=== PATIENT | male | born 1970 | race Caucasian/White ===

== ENCOUNTER 2016-12-31 19:44 | Inpatient (IN) | payer OTHER ==
[~2016-12-31] VITALS: Ht 182.9 cm; Wt 100.2 kg
[2016-12-31 21:05] LABS: OBC FLU VALID
[2016-12-31 22:00] LABS: BASO # 0.2 x10^3/uL (0.0-0.2); BASO % 3 % (0-3); EOS % 2 % (0-3); HEMATOCRIT 32.2 % (39.0-53.0); HEMOGLOBIN 10.7 g/dL (13.0-17.5); LYMPH # 1.7 x10^3/uL (1.0-4.8); LYMPH % 29 % (24-48); MEAN CORPUSCULAR HEMOGLOBIN 30 pg (25-35); MEAN CORPUSCULAR HGB CONC 33 g/dL (31-37); MEAN CORPUSCULAR VOLUME 91 fL (79-100); MONO % 23 % (0-9); NEUT % 43 % (31-73); PLATELET COUNT 106 x10^3/uL (140-400); RED BLOOD COUNT 3.54 x10^6/uL (4.30-5.70); RED CELL DISTRIBUTION WIDTH 15.8 % (11.5-14.5)
[2016-12-31] MEDS ORDERED: MORPHINE SULFATE 4 MG/ML DISP.SYRIN. IV ONE (22:00)
[2016-12-31] MEDS ORDERED: IV NORMAL SALINE 1000ML BAG 1,000 ML IV ONE (22:00)
[2016-12-31 22:12] LABS: CALCIUM 7.9 mg/dL (8.5-10.1); CREATININE 0.8 mg/dL (0.7-1.3); POTASSIUM 3.9 mmol/L (3.5-5.1)
[2016-12-31 22:18] LABS: ALBUMIN 1.9 g/dL (3.4-5.0); ALBUMIN/GLOBULIN RATIO 0.3 (1.0-1.7); TOTAL BILIRUBIN 0.6 mg/dL (0.2-1.0); TOTAL PROTEIN 8.2 g/dL (6.4-8.2)
--- NOTE | 2016-12-31 22:22 | RAD ---
INDICATION: Fever, hypertension, headache, nausea for 3 days, history of HIV. COMPARISON: February 18, 2015 TECHNIQUE: Axial, noncontrast CT images obtained through the head. One or more of the following individualized dose reduction techniques were utilized for this examination: 1. Automated exposure control; 2. Adjustment of the mA and/or kV according to patient size; 3. Use of iterative reconstruction technique. FINDINGS: No acute intracranial process is identified, specifically no acute blood products, midline shift, mass effect or extra-axial fluid collections. Ventricles and sulci appear appropriate for patient's age. Basilar cisterns are maintained. Retrocerebellar CSF density is stable, possibly an arachnoid cyst. The visualized paranasal sinuses are clear. Mastoid air cells are clear. No calvarial fracture is present. Overlying scalp is intact. IMPRESSION: No acute intracranial process. Electronically signed by: Mildred Mitchell (Dec 31, 2016 22:20:33)
[2016-12-31 22:24] LABS: BILIRUBIN,URINE NEGATIVE (NEG); GLUCOSE,URINE NEGATIVE (NEG); NITRITE,URINE NEGATIVE (NEG); PH,URINE 6.5; PROTEIN,URINE NEGATIVE (NEG-TRACE)
[2016-12-31] MEDS ORDERED: LORAZEPAM 2 MG/ML VIAL. ONE (22:31)
[2016-12-31 22:32] LABS: BACTERIA,URINE 0 /HPF (0-FEW); RBC,URINE OCC /HPF (0-2); SQUAMOUS EPITHELIAL CELL,UR FEW /LPF; WBC,URINE 0 /HPF (0-4)
[2016-12-31] MEDS ORDERED: LORAZEPAM 2 MG/ML VIAL. IV STA (22:32)
[2016-12-31 23:01] LABS: % BASOS 1 % (0-3); % EOS 2 % (0-5); PLT ESTIMATE DECREASED (ADEQUATE)
[2016-12-31] MEDS ORDERED: ACETAMINOPHEN 500 MG TABLET PO ONE (23:15)
[2016-12-31] MEDS ORDERED: HYDROmorphone 2 MG/ML VIAL IV ONE (23:15)
[2016-12-31] MEDS ORDERED: VANCOMYCIN PER PHARMACY MC PRN (23:15)
[2016-12-31] MEDS ORDERED: FLUCONAZOLE 400MG/200ML PREMIX 200 ML IV ONE (23:30)
[2017-01-01] VITALS (13 sets, daily range): BP systolic 116–153; BP diastolic 66–89
[2017-01-01] MEDS ORDERED: VANCOMYCIN 2 GM in IV NORMAL SALINE 500ML BAG 500 ML IV ONE ×2
[2017-01-01] MEDS ORDERED: IV NORMAL SALINE 1000ML BAG 1,000 ML IV SCH ×2 (00:28→09:05)
--- NOTE | 2017-01-01 00:28 | PHYS DOC ---
Past Medical History Past Medical History: Other Additional Past Medical Histor: HIV, HEP B Past Surgical History: No Surgical History Alcohol Use: None Drug Use: None Adult General Chief Complaint Chief Complaint: FLU SYMPTOM HPI HPI Patient is a 46 year old male who presents with fever and headache. Patient reports for the past 3 days he has been having fever and throbbing headache. No cough, no vomiting, no diarrhea. He has taken Tylenol with insufficient relief. Of note, patient has history of HIV; he reports a CD4 count was 56 several weeks ago at an ID appointment. He is currently taking Genvoya, Bactrim, azithromycin, valacyclovir among his medications. Review of Systems Review of Systems Constitutional: Fever, chills Eyes: Denies change in visual acuity or eye pain HENT: Denies nasal congestion or sore throat Respiratory: Denies cough or shortness of breath Cardiovascular: Denies chest pain GI: Denies abdominal pain, nausea, vomiting, bloody stools or diarrhea : Denies dysuria or hematuria Musculoskeletal: Denies back pain or joint pain Integument: Denies rash or skin lesions Neurologic: Headache. Denies focal weakness or sensory changes Current Medications Current Medications Current Medications Medications (Trade) Dose Ordered Sig/Kalee Start Time Stop Time Status Last Admin Dose Admin Acetaminophen (Tylenol) 1,000 mg 1X ONCE 12/31/16 23:15 12/31/16 23:16 DC 12/31/16 23:11 1,000 MG Ceftriaxone Sodium 2 gm/ Sodium Chloride 100 ml @ 200 mls/hr 1X ONCE 12/31/16 23:30 12/31/16 23:59 DC 12/31/16 23:30 200 MLS/HR Fluconazole/ Sodium Chloride (Diflucan 400mg/ 200ml Premix) 200 ml @ 100 mls/hr 1X ONCE 12/31/16 23:30 01/01/17 01:29 DC 01/01/17 03:12 100 MLS/HR Hydromorphone HCl (Dilaudid) 0.5 mg 1X ONCE 12/31/16 23:15 12/31/16 23:16 DC 12/31/16 23:11 0.5 MG Lorazepam (Ativan) 1 mg 1X STAT 12/31/16 22:32 12/31/16 22:38 DC 12/31/16 22:35 1 MG Morphine Sulfate 4 mg 1X ONCE 12/31/16 22:00 4/18/17 22:01 DC 12/31/16 22:02 4 MG Sodium Chloride (Iv Sodium Chloride 0.9% 1000ml Bag) 1,000 ml @ 1,000 mls/hr 1X ONCE 12/31/16 22:00 12/31/16 22:59 DC 12/31/16 22:00 1,000 MLS/HR Vancomycin HCl 1 each 1 each PRN DAILY PRN 12/31/16 23:15 01/01/17 02:42 1 EACH Vancomycin HCl 2 gm/Sodium Chloride 500 ml @ 250 mls/hr 1X ONCE 01/01/17 00:00 01/01/17 01:59 DC 01/01/17 00:00 250 MLS/HR Allergies Allergies Allergies Coded Allergies Type Severity Reaction Last Updated Verified No Known Drug Allergies 02/18/15 No Physical Exam Physical Exam Constitutional: Well developed, well nourished, no acute distress, non-toxic appearance HENT: Normocephalic, atraumatic, bilateral external ears normal Eyes: PERRL, EOMI, conjunctiva normal, no discharge Neck: Normal range of motion, no stridor Cardiovascular: Heart rate normal, regular rhythm, no murmur Lungs & Thorax: Bilateral breath sounds clear to auscultation Abdomen: Bowel sounds normal, soft, non-distended, no TTP Skin: Hot to touch, dry, no erythema, no rash Extremities: No obvious deformity, no edema Neurologic: Alert and oriented X 3, strength intact and symmetrical throughout all extremities, sensation to light touch intact throughout Current Patient Data Vital Signs Vital Signs Date Time Temp Pulse Resp B/P Pulse Ox O2 Delivery O2 Flow Rate FiO2 01/01/17 00:25 75 16 121/76 98 Room Air 12/31/16 22:29 98.4 98.4 Lab Values Laboratory Tests Test 12/31/16 20:38 12/31/16 21:50 12/31/16 22:05 Influenza Type A Antigen Negative (NEGATIVE) Influenza Type B Antigen Negative (NEGATIVE) White Blood Count 6.0x10^3/uL (4.0-11.0) Red Blood Count 3.54x10^6/uL (4.30-5.70) L Hemoglobin 10.7g/dL (13.0-17.5) L Hematocrit 32.2% (39.0-53.0) L Mean Corpuscular Volume 91fL (79-100) Mean Corpuscular Hemoglobin 30pg (25-35) Mean Corpuscular Hemoglobin Concent 33g/dL (31-37) Red Cell Distribution Width 15.8% (11.5-14.5) H Platelet Count 106x10^3/uL (140-400) L Neutrophils (%) (Auto) 43% (31-73) Lymphocytes (%) (Auto) 29% (24-48) Monocytes (%) (Auto) 23% (0-9) H Eosinophils (%) (Auto) 2% (0-3) Basophils (%) (Auto) 3% (0-3) Neutrophils # (Auto) 2.6x10^3uL (1.8-7.7) Lymphocytes # (Auto) 1.7x10^3/uL (1.0-4.8) Monocytes # (Auto) 1.4x10^3/uL (0.0-1.1) H Eosinophils # (Auto) 0.1x10^3/uL (0.0-0.7) Basophils # (Auto) 0.2x10^3/uL (0.0-0.2) Segmented Neutrophils % 63% (35-66) Band Neutrophils % 3% (0-9) Lymphocytes % 16% (24-48) L Atypical Lymphocytes % (Manual) 1% (0-0) H Monocytes % 14% (0-10) H Eosinophils % 2% (0-5) Basophils % 1% (0-3) Platelet Estimate Decreased (ADEQUATE) Sodium Level 132mmol/L (136-145) L Potassium Level 3.9mmol/L (3.5-5.1) Chloride Level 99mmol/L (98-107) Carbon Dioxide Level 24mmol/L (21-32) Anion Gap 9 (6-14) Blood Urea Nitrogen 10mg/dL (8-26) Creatinine 0.8mg/dL (0.7-1.3) Estimated GFR (Cockcroft-Gault) 105.0 BUN/Creatinine Ratio 13 (6-20) Glucose Level 82mg/dL (70-99) Lactic Acid Level 1.1mmol/L (0.4-2.0) Calcium Level 7.9mg/dL (8.5-10.1) L Total Bilirubin 0.6mg/dL (0.2-1.0) Aspartate Amino Transferase (AST) 118U/L (15-37) H Alanine Aminotransferase (ALT) 65U/L (16-63) H Alkaline Phosphatase 225U/L (46-116) H Total Protein 8.2g/dL (6.4-8.2) Albumin 1.9g/dL (3.4-5.0) L Albumin/Globulin Ratio 0.3 (1.0-1.7) L Urine Collection Type Unknown Urine Color Yellow Urine Clarity Clear Urine pH 6.5 Urine Specific [place] 1.015 Urine Protein Negativemg/dL (NEG-TRACE) Urine Glucose (UA) Negativemg/dL (NEG) Urine Ketones (Stick) Negativemg/dL (NEG) Urine Blood Negative (NEG) Urine Nitrite Negative (NEG) Urine Bilirubin Negative (NEG) Urine Urobilinogen Dipstick 1.0mg/dL (0.2 mg/dL) Urine Leukocyte Esterase Negative (NEG) Urine RBC Occ/HPF (0-2) Urine WBC 0/HPF (0-4) Urine Squamous Epithelial Cells Few/LPF Urine Bacteria 0/HPF (0-FEW) Urine Mucus Slight/LPF Laboratory Tests 12/31/16 21:50 Laboratory Tests 12/31/16 21:50 EKG EKG [] Radiology/Procedures Radiology/Procedures CT head: IMPRESSION: No acute intracranial process. CXR (my read): Diffuse lacy interstitial pattern Course & Med Decision Making Course & Med Decision Making Pertinent Labs and Imaging studies reviewed. (See chart for details) Patient is 46-year-old male who presents with fever and headache. Obvious concern for serious infectious process given immunocompromise state. CT head, chest x-ray, labs ordered to evaluate. Blood work notable for mild hyponatremia , anemia. I attempted to perform LP, however as unable to obtain any CSF. I discussed this case with Dr. Brennan; will cover with vanc, rocephin, fluconazole. Discussed with Dr. Salmeron, will admit under her care for further evaluation and treatment. Order placed for IR LP in the morning. Dragon Disclaimer Dragon Disclaimer This electronic medical record was generated, in whole or in part, using a voice recognition dictation system. PROCEDURE Procedure Indication: Suspected CSF infection Consent: Consent was obtained Procedure: The patient was placed in the upright sitting position and the appropriate landmarks were identified. The area was prepped and draped in the usual sterile fashion. Anesthesia was obtained using local lidocaine. A spinal needle was inserted at the L3-4 level. Unable to obtain CSF. A sterile dressing was placed over the site and the patient was placed in the supine position. The patient tolerated the procedure well. Complications: Unable to obtain CSF Departure Departure Impression: Primary Impression: Headache Additional Impressions: Fever Immunocompromised Disposition: 09 ADMITTED INPATIENT Admitting Physician: Yesi Salmeron Condition: STABLE Referrals: MARIANNE GRAVES APRN (PCP) Problem Qualifiers ZAYRA SCHULTZ MD Jan 01, 2017 00:28
[2017-01-01] MEDS ORDERED: ACETAMINOPHEN 325 MG TABLET. PO PRN (00:30)
[2017-01-01] MEDS ORDERED: ONDANSETRON PF 4 MG/2 ML VIAL. IV PRN (00:30)
--- NOTE | 2017-01-01 01:45 | ACF ---
Admission Forms Criteria HEADACHES Clinical Indications for Admission to Inpatient Care (Place 'X' for any and all applicable criteria): Admission is indicated for ANY ONE of the following(1)(2)(3)(4): [X]I. Inpatient admission required rather than observational care (Also use Headaches: Observation Care as appropriate) because of ANY ONE of the following: [X]a) Severe pain requiring acute inpatient management [ ]b) Altered mental status that is severe or persistent [ ]c) Vomiting or dehydration that is severe or persistent [ ]d) New-onset focal neurologic deficit that is severe or persistent [ ]e) Hypertension requiring inpatient treatment [ ]f) Severe (new) neurologic findings requiring inpatient care as indicated by ANY ONE of following(9)(10): [ ]1) Papilledema [ ]2) Cerebral edema [ ]3) Mass effect on CT scan [ ]4) Cerebral bleeding, ischemia, or vasospasm(16) [ ]5) Hydrocephalus(17) [ ]6) Uncontrolled seizures [ ]g) IV infusion of anticoagulation, platelet inhibitors vasoactive, or antiarrhythmic medication. [ ]h) Cerebral bleeding, hydrocephalus, or vasospasm monitoring (16) [ ]i) Increased intracranial pressure or cerebral edema monitoring (17) [ ]j) Other condition, treatment or monitoring requiring inpatient admission [ ]II. Unruptured but threatening aneurysm or vascular malformation [ ]III. Venous sinus thrombosis [ ]IV. Increased intracranial pressure [ ]V. Cerebral spinal fluid leak with decreased intracranial pressure [ ]. Medication-overuse headache that has failed all outpatient management options [ ]VII. Vasculitis (eg, giant cell (temporal) arteritis, central nervous system vasculitis) requiring IV corticosteroids, IV antithrombotic therapy, or inpatient monitoring (eg, visual symptoms or findings, other ischemic manifestations)[A](10)(11) Extended stay beyond goal length of stay may be needed for (27): [ ]a) Intractable migraine [ ]b) Subarachnoid or intracranial hemorrhage [ ]c) Malignant hypertension [ ]d) Detoxification from drug withdrawal in medication-overuse headache (29) The original [employer] content created by [employer] has been revised. The portions of the content which have been revised are identified through the use of italic text or in bold, and [employer] has neither reviewed nor approved the modified material.All other unmodified content is copyright [facility]. Please see references footnoted in the original [facility] edition 2016 Admission Criteria Met?: Yes BARBY OZUNA Jan 01, 2017 01:44
[2017-01-01] MEDS ORDERED: Iron PO (01:56)
[2017-01-01] MEDS ORDERED: ELVI1TAB3 PO (01:56)
[2017-01-01] MEDS ORDERED: COLLAGEN SUPPORT PO (01:56)
[2017-01-01] MEDS ORDERED: VALA1000 PO (01:56)
[2017-01-01] MEDS ORDERED: Azithromycin PO (01:56)
[2017-01-01] MEDS: MORPHINE SULFATE 4 MG/ML DISP.SYRIN. IV PRN ×5 (02:17→20:44)
[2017-01-01] MEDS ORDERED: VANCOMYCIN 1.5 GM in IV NORMAL SALINE 500ML BAG 500 ML IV SCH (08:00)
--- NOTE | 2017-01-01 08:34 | RAD ---
Chest, 2 views, 12/31/2016: History: Fever Comparison is made to a study from 02/18/2015. The heart size and pulmonary vascularity are normal. There are numerous tiny miliary type opacities in both lungs. No consolidating infiltrate is seen. There is no evidence of pleural fluid or pneumothorax. IMPRESSION: Diffuse tiny miliary pulmonary opacities with diagnostic considerations including infection such as TB, viral, or fungal pneumonia, or pneumonitis on a hypersensitivity basis. Other less likely possibilities include metastatic disease or sarcoidosis.
[2017-01-01] MEDS ORDERED: SALIVA STIMULANT AGENT 44ML SPRAY BOTTLE. PO PRN (09:15)
--- NOTE | 2017-01-01 09:30 | PDOC1 ---
History and Physical Date of Admission Date of Admission DATE: 01/01/17 TIME: 09:22 History of Present Illness History of Present Illness Mr. Alfredo, is a 46 year old male, admit w. fever and headache. 3 days of weakness, chills and severe throbbing headache. He feels dry and is very thirsty. No cough, no vomiting, no diarrhea. he was seen in ID clinic yesterday, follows with Dr. Moralez and [facility]. pt has AIDS; he reports a CD4 count was 56 He feels a little better sicne starting Genvoya 1 mo ago compliant with Bactrim, azithromycin, valacyclovir pain 02/22, MANDUJANO Past Medical History Infectious disease: HIV (AIDS) Renal/: No pertinent hx Endocrine: No pertinent hx Dermatology: No pertinent hx Family History Family History: No Significant Social History Smoke: No ALCOHOL: none Drugs: None Current Problem List Problem List Problems Medical Problems: (1) Fever Status: Acute (2) Headache Status: Acute (3) Immunocompromised Status: Acute Problems: Current Medications Current Medications Current Medications Sodium Chloride (Iv Sodium Chloride 0.9% 1000ml Bag) 1,000 ml @ 1,000 mls/hr 1X ONCE IV Last administered on 12/31/16 22:00; Start 12/31/16 at 22:00; Stop 12/31/16 at 22:59; Status DC Morphine Sulfate 4 mg 1X ONCE IV Last administered on 12/31/16 22:02; Start 12/31/16 at 22:00; Stop 12/31/16 at 22:01; Status DC Lorazepam (Ativan) 2 mg STK-MED ONCE .ROUTE ; Start 12/31/16 at 22:31; Stop at 22:32; Status DC Lorazepam (Ativan) 1 mg 1X STAT IV Last administered on 12/31/16 22:35; Start 12/31/16 at 22:32; Stop 12/31/16 at 22:38; Status DC Acetaminophen (Tylenol) 1,000 mg 1X ONCE PO Last administered on 12/31/16 23: 11; Start 12/31/16 at 23:15; Stop 12/31/16 at 23:16; Status DC Hydromorphone HCl (Dilaudid) 0.5 mg 1X ONCE IV Last administered on 12/31/16 23:11; Start 12/31/16 at 23:15; Stop 12/31/16 at 23:16; Status DC Vancomycin HCl 1 each 1 each PRN DAILY PRN MC SEE COMMENTS Last administered on 01/01/17 02:42; Start 12/31/16 at 23:15 Ceftriaxone Sodium 2 gm/ Sodium Chloride 100 ml @ 200 mls/hr 1X ONCE IV Last administered on 12/31/16 23:30; Start 12/31/16 at 23:30; Stop 12/31/16 at 23:59 ; Status DC Vancomycin HCl 2 gm/Sodium Chloride 500 ml @ 250 mls/hr 1X ONCE IV Last administered on 01/01/17 00:00; Start 01/01/17 at 00:00; Stop 01/01/17 at 01:59 ; Status DC Fluconazole/ Sodium Chloride (Diflucan 400mg/ 200ml Premix) 200 ml @ 100 mls/ hr 1X ONCE IV Last administered on 01/01/17 03:12; Start 12/31/16 at 23:30; Stop 01/01/17 at 01:29; Status DC Ondansetron HCl (Zofran) 4 mg PRN Q8HRS PRN IV NAUSEA/VOMITING; Start 01/01/17 at 00:30; Stop 01/02/17 at 00:29 Morphine Sulfate 4 mg 4 mg PRN Q2HR PRN IV SEVERE PAIN Last administered on 05:54; Start 01/01/17 at 00:30; Stop 01/02/17 at 00:29 Sodium Chloride (Iv Sodium Chloride 0.9% 1000ml Bag) 1,000 ml @ 100 mls/hr Q10H IV Last administered on 01/01/17 02:07; Start 01/01/17 at 00:28; Stop at 09:20; Status DC Acetaminophen 650 mg 650 mg PRN Q4HRS PRN PO FEVER; Start 01/01/17 at 00:30; Stop 01/02/17 at 00:29 Vancomycin HCl/ Sodium Chloride (Iv Sodium Chloride 0.9% 500ml Bag) 500 ml @ 250 mls/hr Q8H IV Last administered on 01/01/17 08:13; Start 01/01/17 at 08:00 Vancomycin HCl 1 each 1X ONCE MC ; Start 01/01/17 at 23:30; Stop 01/01/17 at 23 :31 Non-Formulary Medication 1 each DAILY PO ; Start 01/02/17 at 09:00; Status UNV Non-Formulary Medication 1,000 mg BID PO ; Start 01/01/17 at 21:00; Status UNV Non-Formulary Medication 1,200 mg WEEKLY PO ; Start 01/08/17 at 09:00; Status UNV Non-Formulary Medication 1500 mcg 1,500 mcg DAILY PO ; Start 01/02/17 at 09:00; Status UNV Sodium Chloride (Iv Sodium Chloride 0.9% 1000ml Bag) 1,000 ml @ 150 mls/hr Q6H40M IV ; Start 01/01/17 at 09:05; Stop 01/01/17 at 09:04; Status UNV Saliva Substitute (Biotene Moisturizing Mouth) 2 spray PRN Q15MIN PRN PO DRY MOUTH; Start 01/01/17 at 09:15; Status UNV Active Scripts Active Reported Valacyclovir (Valacyclovir Hcl) 1,000 Mg Tablet 1,000 Mg PO BID [Azithromycin] 1,200 Mg PO WEEKLY Genvoya Tablet (Elviteg/Aline/Emtric/Tenofo Ala) 1 Each Tablet 1 Each PO DAILY [Iron] 27 Mg PO DAILY [Collagen Support] 1,500 Mcg PO DAILY Allergies Allergies: Coded Allergies: No Known Drug Allergies (Unverified , 02/18/15) ROS General: YES: Appetite, Chills, Fatigue, Malaise, Night Sweats, No: Other PSYCHOLOGICAL ROS: No: Anxiety, Behavioral Disorder, Concentration difficultie , Decreased libido, Depression, Disorientation, Hallucinations, Hostility, Irritablity, Memory difficulties, Mood Swings, Obsessive thoughts, Other, Physical abuse, Sexual abuse, Sleep disturbances, Suicidal ideation Eyes: No Blurry vision, No Decreased vision, No Double vision, No Dry eyes, No Excessive tearing, No Eye Pain, No Itchy Eyes, No Loss of vision, No Other, No Photophobia, No Scotomata, No Uses contacts, No Uses glasses HEENT: YES: Heacaches, Other (dry), No: Epistaxis, Hearing change, Nasal congestion, Nasal discharge, Oral lesions, Sinus pain, Sneezing, Snoring, Sore Throat, Tinnitus, Vertigo, Visual Changes, Vocal changes ALLERGY AND IMMUNOLOGY: YES: Itchy/Watery Eyes, No: Hives, Insect Bite Sensitivity, Nasal Congestion, Other, Post Nasal Drip , Seasonal Allergies Respiratory: No: Cough, Hemoptysis, Orthopnea, Other, Pleuritic Pain, SOB with excertion, Shortness of breath, Sputum Changes, Stridor, Tachypnea, Wheezing Cardiovascular: No Chest Pain, No Edema, No Lt Headedness, No Orthopnea, No Other, No Palpitations, No Paroxysmal Noc. Dyspnea Gastrointestinal: Yes Nausea, No Abdominal Pain, No Constipation, No Diarrhea, No Hematochezia, No Melena, No Other, No Vomiting Genitourinary: No , No , No , No , No , No , No , No Discharge, No Dysuria, No Flank Pain, No Frequency, No Hematuria, No Incontinence, No Other, No Pain, No Retention, No Urgency Musculoskeletal: Yes Joint Pain, Yes Muscular Weakness, No Gait Disturbance, No Joint Stiffness, No Joint Swelling, No Muscle Pain, No Other, No Pain In:, No Swelling In: Neurological: No Behavorial Changes, No Bowel/Bladder ControlChng, No Confusion , No Dizziness, No Gait Disturbance, No Headaches, No Impaired Coord/balance, No Memory Loss, No Numbness/Tingling, No Other, No Seizures, No Speech Problems , No Tremors, No Visual Changes, No Weakness Skin: No Acne, No Dry Skin, No Eczema, No Hair Changes, No Lumps, No Mole Changes, No Mottling, No Nail Changes, No Other, No Pruritus, No Rash, No Skin Lesion Changes Physical Exam General: Alert, Oriented X3, Cooperative, mild distress, moderate distress HEENT: Atraumatic, PERRLA, EOMI, Mucous membr. moist/pink, Other Lungs: Clear to auscultation, Normal air movement Abdomen: Normal bowel sounds, Soft Extremities: No clubbing, No cyanosis, No edema Skin: No significant lesion Neuro: Normal speech, Normal tone Psych/Mental Status: Mental status NL, Mood NL Vitals Vitals Vital Signs Date Time Temp Pulse Resp B/P Pulse Ox O2 Delivery O2 Flow Rate FiO2 01/01/17 07:00 100.2 85 20 123/78 96 Room Air 100.2 Labs Labs Laboratory Tests Test 12/31/16 20:38 12/31/16 21:50 12/31/16 22:05 Influenza Type A Antigen Negative (NEGATIVE) Influenza Type B Antigen Negative (NEGATIVE) White Blood Count 6.0x10^3/uL (4.0-11.0) Red Blood Count 3.54x10^6/uL (4.30-5.70) Hemoglobin 10.7g/dL (13.0-17.5) Hematocrit 32.2% (39.0-53.0) Mean Corpuscular Volume 91fL (79-100) Mean Corpuscular Hemoglobin 30pg (25-35) Mean Corpuscular Hemoglobin Concent 33g/dL (31-37) Red Cell Distribution Width 15.8% (11.5-14.5) Platelet Count 106x10^3/uL (140-400) Neutrophils (%) (Auto) 43% (31-73) Lymphocytes (%) (Auto) 29% (24-48) Monocytes (%) (Auto) 23% (0-9) Eosinophils (%) (Auto) 2% (0-3) Basophils (%) (Auto) 3% (0-3) Neutrophils # (Auto) 2.6x10^3uL (1.8-7.7) Lymphocytes # (Auto) 1.7x10^3/uL (1.0-4.8) Monocytes # (Auto) 1.4x10^3/uL (0.0-1.1) Eosinophils # (Auto) 0.1x10^3/uL (0.0-0.7) Basophils # (Auto) 0.2x10^3/uL (0.0-0.2) Segmented Neutrophils % 63% (35-66) Band Neutrophils % 3% (0-9) Lymphocytes % 16% (24-48) Atypical Lymphocytes % (Manual) 1% (0-0) Monocytes % 14% (0-10) Eosinophils % 2% (0-5) Basophils % 1% (0-3) Platelet Estimate Decreased (ADEQUATE) Sodium Level 132mmol/L (136-145) Potassium Level 3.9mmol/L (3.5-5.1) Chloride Level 99mmol/L (98-107) Carbon Dioxide Level 24mmol/L (21-32) Anion Gap 9 (6-14) Blood Urea Nitrogen 10mg/dL (8-26) Creatinine 0.8mg/dL (0.7-1.3) Estimated GFR (Cockcroft-Gault) 105.0 BUN/Creatinine Ratio 13 (6-20) Glucose Level 82mg/dL (70-99) Lactic Acid Level 1.1mmol/L (0.4-2.0) Calcium Level 7.9mg/dL (8.5-10.1) Total Bilirubin 0.6mg/dL (0.2-1.0) Aspartate Amino Transf (AST/SGOT) 118U/L (15-37) Alanine Aminotransferase (ALT/SGPT) 65U/L (16-63) Alkaline Phosphatase 225U/L (46-116) Total Protein 8.2g/dL (6.4-8.2) Albumin 1.9g/dL (3.4-5.0) Albumin/Globulin Ratio 0.3 (1.0-1.7) Urine Collection Type Unknown Urine Color Yellow Urine Clarity Clear Urine pH 6.5 Urine Specific [place] 1.015 Urine Protein Negativemg/dL (NEG-TRACE) Urine Glucose (UA) Negativemg/dL (NEG) Urine Ketones (Stick) Negativemg/dL (NEG) Urine Blood Negative (NEG) Urine Nitrite Negative (NEG) Urine Bilirubin Negative (NEG) Urine Urobilinogen Dipstick 1.0mg/dL (0.2 mg/dL) Urine Leukocyte Esterase Negative (NEG) Urine RBC Occ/HPF (0-2) Urine WBC 0/HPF (0-4) Urine Squamous Epithelial Cells Few/LPF Urine Bacteria 0/HPF (0-FEW) Urine Mucus Slight/LPF Laboratory Tests Test 12/31/16 20:38 12/31/16 21:50 12/31/16 22:05 Influenza Type A Antigen Negative (NEGATIVE) Influenza Type B Antigen Negative (NEGATIVE) White Blood Count 6.0x10^3/uL (4.0-11.0) Red Blood Count 3.54x10^6/uL (4.30-5.70) Hemoglobin 10.7g/dL (13.0-17.5) Hematocrit 32.2% (39.0-53.0) Mean Corpuscular Volume 91fL (79-100) Mean Corpuscular Hemoglobin 30pg (25-35) Mean Corpuscular Hemoglobin Concent 33g/dL (31-37) Red Cell Distribution Width 15.8% (11.5-14.5) Platelet Count 106x10^3/uL (140-400) Neutrophils (%) (Auto) 43% (31-73) Lymphocytes (%) (Auto) 29% (24-48) Monocytes (%) (Auto) 23% (0-9) Eosinophils (%) (Auto) 2% (0-3) Basophils (%) (Auto) 3% (0-3) Neutrophils # (Auto) 2.6x10^3uL (1.8-7.7) Lymphocytes # (Auto) 1.7x10^3/uL (1.0-4.8) Monocytes # (Auto) 1.4x10^3/uL (0.0-1.1) Eosinophils # (Auto) 0.1x10^3/uL (0.0-0.7) Basophils # (Auto) 0.2x10^3/uL (0.0-0.2) Segmented Neutrophils % 63% (35-66) Band Neutrophils % 3% (0-9) Lymphocytes % 16% (24-48) Atypical Lymphocytes % (Manual) 1% (0-0) Monocytes % 14% (0-10) Eosinophils % 2% (0-5) Basophils % 1% (0-3) Platelet Estimate Decreased (ADEQUATE) Sodium Level 132mmol/L (136-145) Potassium Level 3.9mmol/L (3.5-5.1) Chloride Level 99mmol/L (98-107) Carbon Dioxide Level 24mmol/L (21-32) Anion Gap 9 (6-14) Blood Urea Nitrogen 10mg/dL (8-26) Creatinine 0.8mg/dL (0.7-1.3) Estimated GFR (Cockcroft-Gault) 105.0 BUN/Creatinine Ratio 13 (6-20) Glucose Level 82mg/dL (70-99) Lactic Acid Level 1.1mmol/L (0.4-2.0) Calcium Level 7.9mg/dL (8.5-10.1) Total Bilirubin 0.6mg/dL (0.2-1.0) Aspartate Amino Transf (AST/SGOT) 118U/L (15-37) Alanine Aminotransferase (ALT/SGPT) 65U/L (16-63) Alkaline Phosphatase 225U/L (46-116) Total Protein 8.2g/dL (6.4-8.2) Albumin 1.9g/dL (3.4-5.0) Albumin/Globulin Ratio 0.3 (1.0-1.7) Urine Collection Type Unknown Urine Color Yellow Urine Clarity Clear Urine pH 6.5 Urine Specific [place] 1.015 Urine Protein Negativemg/dL (NEG-TRACE) Urine Glucose (UA) Negativemg/dL (NEG) Urine Ketones (Stick) Negativemg/dL (NEG) Urine Blood Negative (NEG) Urine Nitrite Negative (NEG) Urine Bilirubin Negative (NEG) Urine Urobilinogen Dipstick 1.0mg/dL (0.2 mg/dL) Urine Leukocyte Esterase Negative (NEG) Urine RBC Occ/HPF (0-2) Urine WBC 0/HPF (0-4) Urine Squamous Epithelial Cells Few/LPF Urine Bacteria 0/HPF (0-FEW) Urine Mucus Slight/LPF VTE Prophylaxis Ordered VTE Prophylaxis Devices: No VTE Pharmacological Prophylaxi: Yes Assessment/Plan Assessment/Plan MANDUJANO in AIDS patient ID consult on vanco, has been given rocephin Lumbar puncture unsuccessful in ER, pending this AM MANDUJANO, neuro consult to follow CXR possible concern, consult Pulm to follow, may benefit from CT nausea, weakness, imrpvoed from prior severe malnutrition mild transaminitis nutrition consult CHARITO MEYERS MD Jan 01, 2017 09:30
--- NOTE | 2017-01-01 10:19 | PDOC ---
Provider Note Provider Note The fluoro guided LP was performed without difficulty utilizing a 25g needle. 10 cc of clear CSF was removed and sent to the lab. The patient tolerated the procedure well and left the department in stable condition. KENNEDY CESPEDES MD Jan 01, 2017 10:19
--- NOTE | 2017-01-01 10:23 | RAD ---
Fluoroscopically guided lumbar puncture, 01/01/2017: History: Viral meningitis Under local anesthesia, aseptic conditions and fluoroscopic guidance a lumbar puncture was performed at the L2-3 level utilizing a 25-gauge Robby spinal needle. Good clear CSF flow was obtained following which 10 cc of CSF was removed and sent to the lab for appropriate studies. The spinal needle was then removed and hemostasis obtained. One fluoroscopic spot image was recorded. 2.4 minutes of fluoroscopy time was utilized. The patient tolerated the procedure well and was returned to the floor in stable condition.
[2017-01-01 10:58] LABS: CSF PROTEIN 133.7 mg/dL (15.0-45.0)
[2017-01-01 11:12] LABS: CSF GLUCOSE 13 mg/dL (37-70)
--- NOTE | 2017-01-01 11:34 | PDOC ---
Infectious Disease Note ROS ROS GEN: Denies fevers, chills, sweats HEENT: Denies blurred vision, sore throat CV: Denies chest pain RESP: Denies shortness of air, cough GI: Denies n/v/d NEURO: Denies confusion, dizziness MSK: Denies weakness, joint pain/swelling Vital Sign Vital Signs Vital Signs Date Time Temp Pulse Resp B/P Pulse Ox O2 Delivery O2 Flow Rate FiO2 01/01/17 10:44 Room Air 01/01/17 07:00 100.2 85 20 123/78 96 100.2 Physical Exam PHYSICAL EXAM GENERAL: NAD, Alert HEENT: PERRL, OC/OP NECK: Supple, no JVD, no LN LUNGS: Clear HEART: S1S2, no gallop, no murmur ABD: Soft, NT, no organomegaly, no rebound EXT: No edema, no cyanosis [employer]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, 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, no focal neurologic deficit SKIN: No rash IV: ok Labs Lab Laboratory Tests Test 12/31/16 20:38 12/31/16 21:50 12/31/16 22:05 01/01/17 10:15 Influenza Type A Antigen Negative (NEGATIVE) Influenza Type B Antigen Negative (NEGATIVE) White Blood Count 6.0x10^3/uL (4.0-11.0) Red Blood Count 3.54x10^6/uL (4.30-5.70) Hemoglobin 10.7g/dL (13.0-17.5) Hematocrit 32.2% (39.0-53.0) Mean Corpuscular Volume 91fL (79-100) Mean Corpuscular Hemoglobin 30pg (25-35) Mean Corpuscular Hemoglobin Concent 33g/dL (31-37) Red Cell Distribution Width 15.8% (11.5-14.5) Platelet Count 106x10^3/uL (140-400) Neutrophils (%) (Auto) 43% (31-73) Lymphocytes (%) (Auto) 29% (24-48) Monocytes (%) (Auto) 23% (0-9) Eosinophils (%) (Auto) 2% (0-3) Basophils (%) (Auto) 3% (0-3) Neutrophils # (Auto) 2.6x10^3uL (1.8-7.7) Lymphocytes # (Auto) 1.7x10^3/uL (1.0-4.8) Monocytes # (Auto) 1.4x10^3/uL (0.0-1.1) Eosinophils # (Auto) 0.1x10^3/uL (0.0-0.7) Basophils # (Auto) 0.2x10^3/uL (0.0-0.2) Segmented Neutrophils % 63% (35-66) Band Neutrophils % 3% (0-9) Lymphocytes % 16% (24-48) Atypical Lymphocytes % (Manual) 1% (0-0) Monocytes % 14% (0-10) Eosinophils % 2% (0-5) Basophils % 1% (0-3) Platelet Estimate Decreased (ADEQUATE) Sodium Level 132mmol/L (136-145) Potassium Level 3.9mmol/L (3.5-5.1) Chloride Level 99mmol/L (98-107) Carbon Dioxide Level 24mmol/L (21-32) Anion Gap 9 (6-14) Blood Urea Nitrogen 10mg/dL (8-26) Creatinine 0.8mg/dL (0.7-1.3) Estimated GFR (Cockcroft-Gault) 105.0 BUN/Creatinine Ratio 13 (6-20) Glucose Level 82mg/dL (70-99) Lactic Acid Level 1.1mmol/L (0.4-2.0) Calcium Level 7.9mg/dL (8.5-10.1) Total Bilirubin 0.6mg/dL (0.2-1.0) Aspartate Amino Transf (AST/SGOT) 118U/L (15-37) Alanine Aminotransferase (ALT/SGPT) 65U/L (16-63) Alkaline Phosphatase 225U/L (46-116) Total Protein 8.2g/dL (6.4-8.2) Albumin 1.9g/dL (3.4-5.0) Albumin/Globulin Ratio 0.3 (1.0-1.7) Urine Collection Type Unknown Urine Color Yellow Urine Clarity Clear Urine pH 6.5 Urine Specific [place] 1.015 Urine Protein Negativemg/dL (NEG-TRACE) Urine Glucose (UA) Negativemg/dL (NEG) Urine Ketones (Stick) Negativemg/dL (NEG) Urine Blood Negative (NEG) Urine Nitrite Negative (NEG) Urine Bilirubin Negative (NEG) Urine Urobilinogen Dipstick 1.0mg/dL (0.2 mg/dL) Urine Leukocyte Esterase Negative (NEG) Urine RBC Occ/HPF (0-2) Urine WBC 0/HPF (0-4) Urine Squamous Epithelial Cells Few/LPF Urine Bacteria 0/HPF (0-FEW) Urine Mucus Slight/LPF CSF Glucose 13mg/dL (37-70) CSF Total Protein 133.7mg/dL (15.0-45.0) Objective Assessment Fever MANDUJANO ? Meningitis -likely Bacterial given glucose 13 AIDS VL 91,979 Sep and CD Oct. On Genvoya/Bactrim/Weekly Azithromycin Abnormal CXR H/o Hep B H/o Herpes oralis Plan Plan of Care Cont Vanc/Rocephin/Fluconazole Add Amp/Bactrim Daily Azithromycin Cont Genvoya d/w pharmacy Serum crypto/Histo/CMV Igm/Mycoplasma/TB spot CSF crypto/VDRL/HSV PICC line F/u LFTs/Labs/cults # [id number] OMI HANSON MD Jan 01, 2017 11:34
[2017-01-01 11:45] LABS: CSF CLARITY CLEAR; CSF COLOR COLORLESS
[2017-01-01] MEDS ORDERED: AMPICILLIN SODIUM 2 GM in IV NORMAL SALINE 100ML 100 ML IV SCH (12:00)
[2017-01-01] MEDS ORDERED: FLUCONAZOLE 400MG/200ML PREMIX 200 ML IV SCH (12:00)
[2017-01-01 12:26] LABS: CSF PMN % 3 %
[2017-01-01] MEDS: AZITHROMYCIN 250 MG TABLET. PO SCH (12:57)
[2017-01-01] MEDS: SMZ/TMP 800/160MG TABLET. PO SCH (12:57)
--- NOTE | 2017-01-01 13:14 | PDOC ---
Provider Note Provider Note dictated NORBERTO ALLEN MD Jan 01, 2017 13:14
--- NOTE | 2017-01-01 13:50 | PDOC2 ---
NEUROLOGY CONSULT Date of Admission Date of Admission DATE: 01/01/17 TIME: 13:45 Reason for Consult Reason for Consult: Headaches Referring Physician Referring Physician: Dr. Salmeron Source Source: Chart review, Patient History of Present Illness History of Present Illness The patient is a 46-year-old right-handed male admitted with 3 days of fever and headaches. He is HIV-positive. He denies history of significant headaches in the past nor any significant head injury, stroke, or seizure. 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 Current Medications Current Medications Current Medications Sodium Chloride (Iv Sodium Chloride 0.9% 1000ml Bag) 1,000 ml @ 1,000 mls/hr 1X ONCE IV Last administered on 12/31/16 22:00; Start 12/31/16 at 22:00; Stop 12/31/16 at 22:59; Status DC Morphine Sulfate 4 mg 1X ONCE IV Last administered on 12/31/16 22:02; Start 12/31/16 at 22:00; Stop 12/31/16 at 22:01; Status DC Lorazepam (Ativan) 2 mg STK-MED ONCE .ROUTE ; Start 12/31/16 at 22:31; Stop at 22:32; Status DC Lorazepam (Ativan) 1 mg 1X STAT IV Last administered on 12/31/16 22:35; Start 12/31/16 at 22:32; Stop 12/31/16 at 22:38; Status DC Acetaminophen (Tylenol) 1,000 mg 1X ONCE PO Last administered on 12/31/16 23: 11; Start 12/31/16 at 23:15; Stop 12/31/16 at 23:16; Status DC Hydromorphone HCl (Dilaudid) 0.5 mg 1X ONCE IV Last administered on 12/31/16 23:11; Start 12/31/16 at 23:15; Stop 12/31/16 at 23:16; Status DC Vancomycin HCl 1 each 1 each PRN DAILY PRN MC SEE COMMENTS Last administered on 01/01/17 02:42; Start 12/31/16 at 23:15; Stop 01/01/17 at 13:28; Status DC Ceftriaxone Sodium 2 gm/ Sodium Chloride 100 ml @ 200 mls/hr 1X ONCE IV Last administered on 12/31/16 23:30; Start 12/31/16 at 23:30; Stop 12/31/16 at 23:59 ; Status DC Vancomycin HCl 2 gm/Sodium Chloride 500 ml @ 250 mls/hr 1X ONCE IV Last administered on 01/01/17 00:00; Start 01/01/17 at 00:00; Stop 01/01/17 at 01:59 ; Status DC Fluconazole/ Sodium Chloride (Diflucan 400mg/ 200ml Premix) 200 ml @ 100 mls/ hr 1X ONCE IV Last administered on 01/01/17 03:12; Start 12/31/16 at 23:30; Stop 01/01/17 at 01:29; Status DC Ondansetron HCl (Zofran) 4 mg PRN Q8HRS PRN IV NAUSEA/VOMITING; Start 01/01/17 at 00:30; Stop 01/02/17 at 00:29 Morphine Sulfate 4 mg 4 mg PRN Q2HR PRN IV SEVERE PAIN Last administered on 13:01; Start 01/01/17 at 00:30; Stop 01/02/17 at 00:29 Sodium Chloride (Iv Sodium Chloride 0.9% 1000ml Bag) 1,000 ml @ 100 mls/hr Q10H IV Last administered on 01/01/17 02:07; Start 01/01/17 at 00:28; Stop at 09:20; Status DC Acetaminophen 650 mg 650 mg PRN Q4HRS PRN PO FEVER; Start 01/01/17 at 00:30; Stop 01/02/17 at 00:29 Vancomycin HCl/ Sodium Chloride (Iv Sodium Chloride 0.9% 500ml Bag) 500 ml @ 250 mls/hr Q8H IV Last administered on 01/01/17 08:13; Start 01/01/17 at 08:00 ; Stop 01/01/17 at 13:28; Status DC Vancomycin HCl 1 each 1X ONCE MC ; Start 01/01/17 at 23:30; Stop 01/01/17 at 23 :30; Status DC Non-Formulary Medication 1 each DAILY PO ; Start 01/02/17 at 09:00; Status UNV Valacyclovir HCl (Valtrex) 1,000 mg BID PO ; Start 01/01/17 at 21:00 Non-Formulary Medication 1,200 mg WEEKLY PO ; Start 01/08/17 at 09:00; Stop at 09:00; Status DC Non-Formulary Medication 1500 mcg 1,500 mcg DAILY PO ; Start 01/02/17 at 09:00; Status UNV Sodium Chloride (Iv Sodium Chloride 0.9% 1000ml Bag) 1,000 ml @ 150 mls/hr Q6H40M IV ; Start 01/01/17 at 09:05; Stop 01/01/17 at 09:34; Status DC Saliva Substitute 2 spray 2 spray PRN Q15MIN PRN PO DRY MOUTH; Start 01/01/17 at 09:15 Ceftriaxone Sodium 2 gm/ Sodium Chloride 100 ml @ 200 mls/hr Q12HR IV ; Start 01/01/17 at 21:00 Ampicillin Sodium 2 gm/Sodium Chloride 100 ml @ 200 mls/hr Q4HRS IV Last administered on 01/01/17 13:09; Start 01/01/17 at 12:00; Stop 01/01/17 at 13:28 ; Status DC Fluconazole/ Sodium Chloride (Diflucan 400mg/ 200ml Premix) 200 ml @ 100 mls/ hr Q24H IV ; Start 01/01/17 at 12:00; Stop 01/01/17 at 13:28; Status DC Trimethoprim/ Sulfamethoxazole (Bactrim Ds) 1 tab DAILY PO Last administered on 01/01/17 12:57; Start 01/01/17 at 09:00 Azithromycin 500 mg 500 mg DAILY PO Last administered on 01/01/17 12:57; Start 01/01/17 at 11:30 Amphotericin B/ Dextrose (Ambisome) 500 ml @ 250 mls/hr Q24H IV ; Start at 14:00 Flucytosine (Ancobon) 2,500 mg Q6H PO ; Start 01/01/17 at 14:00 Active Scripts Active Reported Valacyclovir (Valacyclovir Hcl) 1,000 Mg Tablet 1,000 Mg PO BID [Azithromycin] 1,200 Mg PO WEEKLY Genvoya Tablet (Elviteg/Aline/Emtric/Tenofo Ala) 1 Each Tablet 1 Each PO DAILY [Iron] 27 Mg PO DAILY [Collagen Support] 1,500 Mcg PO DAILY Allergies Allergies: Coded Allergies: No Known Drug Allergies (Unverified , 02/18/15) ROS Review of System Patient denies fevers, chills, weight loss, dyspnea, angina, abdominal pain, change in bowels, or dysuria. 14 point review of systems is negative. Physical Exam Physical Examination PHYSICAL EXAMINATION: Vital signs: see above. General appearance is normal and in no acute distress. HEENT: Normocephalic and nontraumatic. Eyes, nose, ears, and throat are unremarkable. Neck is supple. No lymphadenopathy. No bruits are heard over the carotid artery. No crepitus. NEUROLOGY: Exam limited as the patient is having a PICC line placed. Pupils do react to light and extraocular movements are intact. Strength is 5/5. I could not check sensation and cerebellar testing. Vitals VITALS Vital Signs Date Time Temp Pulse Resp B/P Pulse Ox O2 Delivery O2 Flow Rate FiO2 01/01/17 13:01 Room Air 01/01/17 11:05 99.3 85 20 141/85 97 99.3 Labs Labs Laboratory Tests Test 12/31/16 11:35 12/31/16 20:38 12/31/16 21:50 12/31/16 22:05 Lactic Acid Level 2.0mmol/L (0.4-2.0) 1.1mmol/L (0.4-2.0) Influenza Type A Antigen Negative (NEGATIVE) Influenza Type B Antigen Negative (NEGATIVE) White Blood Count 6.0x10^3/uL (4.0-11.0) Red Blood Count 3.54x10^6/uL (4.30-5.70) Hemoglobin 10.7g/dL (13.0-17.5) Hematocrit 32.2% (39.0-53.0) Mean Corpuscular Volume 91fL (79-100) Mean Corpuscular Hemoglobin 30pg (25-35) Mean Corpuscular Hemoglobin Concent 33g/dL (31-37) Red Cell Distribution Width 15.8% (11.5-14.5) Platelet Count 106x10^3/uL (140-400) Neutrophils (%) (Auto) 43% (31-73) Lymphocytes (%) (Auto) 29% (24-48) Monocytes (%) (Auto) 23% (0-9) Eosinophils (%) (Auto) 2% (0-3) Basophils (%) (Auto) 3% (0-3) Neutrophils # (Auto) 2.6x10^3uL (1.8-7.7) Lymphocytes # (Auto) 1.7x10^3/uL (1.0-4.8) Monocytes # (Auto) 1.4x10^3/uL (0.0-1.1) Eosinophils # (Auto) 0.1x10^3/uL (0.0-0.7) Basophils # (Auto) 0.2x10^3/uL (0.0-0.2) Segmented Neutrophils % 63% (35-66) Band Neutrophils % 3% (0-9) Lymphocytes % 16% (24-48) Atypical Lymphocytes % (Manual) 1% (0-0) Monocytes % 14% (0-10) Eosinophils % 2% (0-5) Basophils % 1% (0-3) Platelet Estimate Decreased (ADEQUATE) Sodium Level 132mmol/L (136-145) Potassium Level 3.9mmol/L (3.5-5.1) Chloride Level 99mmol/L (98-107) Carbon Dioxide Level 24mmol/L (21-32) Anion Gap 9 (6-14) Blood Urea Nitrogen 10mg/dL (8-26) Creatinine 0.8mg/dL (0.7-1.3) Estimated GFR (Cockcroft-Gault) 105.0 BUN/Creatinine Ratio 13 (6-20) Glucose Level 82mg/dL (70-99) Calcium Level 7.9mg/dL (8.5-10.1) Total Bilirubin 0.6mg/dL (0.2-1.0) Aspartate Amino Transf (AST/SGOT) 118U/L (15-37) Alanine Aminotransferase (ALT/SGPT) 65U/L (16-63) Alkaline Phosphatase 225U/L (46-116) Total Protein 8.2g/dL (6.4-8.2) Albumin 1.9g/dL (3.4-5.0) Albumin/Globulin Ratio 0.3 (1.0-1.7) Urine Collection Type Unknown Urine Color Yellow Urine Clarity Clear Urine pH 6.5 Urine Specific [place] 1.015 Urine Protein Negativemg/dL (NEG-TRACE) Urine Glucose (UA) Negativemg/dL (NEG) Urine Ketones (Stick) Negativemg/dL (NEG) Urine Blood Negative (NEG) Urine Nitrite Negative (NEG) Urine Bilirubin Negative (NEG) Urine Urobilinogen Dipstick 1.0mg/dL (0.2 mg/dL) Urine Leukocyte Esterase Negative (NEG) Urine RBC Occ/HPF (0-2) Urine WBC 0/HPF (0-4) Urine Squamous Epithelial Cells Few/LPF Urine Bacteria 0/HPF (0-FEW) Urine Mucus Slight/LPF Test 01/01/17 02:00 01/01/17 10:15 Nasal Screen MRSA (PCR) Negative (Negative) CSF Color Colorless CSF Clarity Clear CSF WBC 60 CSF RBC 0 CSF Mononuclear WBCs % 97% CSF Polynuclear WBCs (%) 3% CSF Glucose 13mg/dL (37-70) CSF Total Protein 133.7mg/dL (15.0-45.0) Laboratory Tests Test 12/31/16 20:38 12/31/16 21:50 12/31/16 22:05 01/01/17 02:00 Influenza Type A Antigen Negative (NEGATIVE) Influenza Type B Antigen Negative (NEGATIVE) White Blood Count 6.0x10^3/uL (4.0-11.0) Red Blood Count 3.54x10^6/uL (4.30-5.70) Hemoglobin 10.7g/dL (13.0-17.5) Hematocrit 32.2% (39.0-53.0) Mean Corpuscular Volume 91fL (79-100) Mean Corpuscular Hemoglobin 30pg (25-35) Mean Corpuscular Hemoglobin Concent 33g/dL (31-37) Red Cell Distribution Width 15.8% (11.5-14.5) Platelet Count 106x10^3/uL (140-400) Neutrophils (%) (Auto) 43% (31-73) Lymphocytes (%) (Auto) 29% (24-48) Monocytes (%) (Auto) 23% (0-9) Eosinophils (%) (Auto) 2% (0-3) Basophils (%) (Auto) 3% (0-3) Neutrophils # (Auto) 2.6x10^3uL (1.8-7.7) Lymphocytes # (Auto) 1.7x10^3/uL (1.0-4.8) Monocytes # (Auto) 1.4x10^3/uL (0.0-1.1) Eosinophils # (Auto) 0.1x10^3/uL (0.0-0.7) Basophils # (Auto) 0.2x10^3/uL (0.0-0.2) Segmented Neutrophils % 63% (35-66) Band Neutrophils % 3% (0-9) Lymphocytes % 16% (24-48) Atypical Lymphocytes % (Manual) 1% (0-0) Monocytes % 14% (0-10) Eosinophils % 2% (0-5) Basophils % 1% (0-3) Platelet Estimate Decreased (ADEQUATE) Sodium Level 132mmol/L (136-145) Potassium Level 3.9mmol/L (3.5-5.1) Chloride Level 99mmol/L (98-107) Carbon Dioxide Level 24mmol/L (21-32) Anion Gap 9 (6-14) Blood Urea Nitrogen 10mg/dL (8-26) Creatinine 0.8mg/dL (0.7-1.3) Estimated GFR (Cockcroft-Gault) 105.0 BUN/Creatinine Ratio 13 (6-20) Glucose Level 82mg/dL (70-99) Lactic Acid Level 1.1mmol/L (0.4-2.0) Calcium Level 7.9mg/dL (8.5-10.1) Total Bilirubin 0.6mg/dL (0.2-1.0) Aspartate Amino Transf (AST/SGOT) 118U/L (15-37) Alanine Aminotransferase (ALT/SGPT) 65U/L (16-63) Alkaline Phosphatase 225U/L (46-116) Total Protein 8.2g/dL (6.4-8.2) Albumin 1.9g/dL (3.4-5.0) Albumin/Globulin Ratio 0.3 (1.0-1.7) Urine Collection Type Unknown Urine Color Yellow Urine Clarity Clear Urine pH 6.5 Urine Specific [place] 1.015 Urine Protein Negativemg/dL (NEG-TRACE) Urine Glucose (UA) Negativemg/dL (NEG) Urine Ketones (Stick) Negativemg/dL (NEG) Urine Blood Negative (NEG) Urine Nitrite Negative (NEG) Urine Bilirubin Negative (NEG) Urine Urobilinogen Dipstick 1.0mg/dL (0.2 mg/dL) Urine Leukocyte Esterase Negative (NEG) Urine RBC Occ/HPF (0-2) Urine WBC 0/HPF (0-4) Urine Squamous Epithelial Cells Few/LPF Urine Bacteria 0/HPF (0-FEW) Urine Mucus Slight/LPF Nasal Screen MRSA (PCR) Negative (Negative) Test 01/01/17 10:15 CSF Color Colorless CSF Clarity Clear CSF WBC 60 CSF RBC 0 CSF Mononuclear WBCs % 97% CSF Polynuclear WBCs (%) 3% CSF Glucose 13mg/dL (37-70) CSF Total Protein 133.7mg/dL (15.0-45.0) Images Images CT head negative for acute disease Assessment/Plan Assessment/Plan Impression: Meningitis, differential diagnosis as per the infectious disease consultation. Recommendations: Agree with Dr. Brennan's plans. I will follow along. Supportive care. Thank you for letting me help with the patient's care. ITZEL CONTEH MD Jan 01, 2017 13:50
--- NOTE | 2017-01-01 15:05 | RAD ---
Portable chest, 01/01/2017: History: Check PICC placement Comparison is made to yesterday's study. A right PICC has been inserted extending into the superior vena cava near its junction with the right atrium. The heart size is normal. Tiny miliary nodular opacities persist in both lungs. There is no evidence of pleural fluid. No new cardiopulmonary abnormality is detected. IMPRESSION: 1. Interval insertion of a right PICC in satisfactory position. 2. Unchanged diffuse bilateral miliary pulmonary nodules.
--- NOTE | 2017-01-01 15:06 | RAD ---
Indication fever and headache. Miliary TB versus cryptococcal pneumonia and dates. Axial noncontrast images through the chest were obtained. Note is made of a previous examination 02/18/2015. There is a diffuse miliary pattern in both lungs. In a febrile patient major diagnostic considerations would center around tuberculosis, fungal infection or viral pneumonitis. (If the patient were afebrile in addition to infectious causes miliary metastatic disease, sarcoid, pneumoconiosis and other etiologies would need to be considered). The pattern does appear to be new relative to the previous exam. There is a more focal oval opacity in the left upper lobe measuring approximately 2.7 x 1.7 cm. This too is new relative to the previous exam. The etiology is unclear. Neoplastic disease is not excluded accounting for this opacity. Imaging through the upper abdomen demonstrates splenomegaly. The spleen appears somewhat enlarged compared to the prior study. An acute finding in the upper abdomen is not seen. Significant hilar or mediastinal adenopathy is not apparent in the mediastinum. There is no pleural fluid. IMPRESSION: Innumerable small pulmonary nodules, in a miliary pattern, most compatible with infection in a febrile patient.. Major considerations with center around miliary TB, fungal or viral infections. Additional focal opacity, possibly representing a solid mass, in the left upper lobe measuring approximately 2.7 cm in greatest dimension. The etiology is unclear but neoplastic disease is not excluded (a dense focus of infection could account for the appearance). Splenomegaly PQRS Compliance Statement: One or more of the following individualized dose reduction techniques were utilized for this examination: 1. Automated exposure control 2. Adjustment of the mA and/or kV according to patient size 3. Use of iterative reconstruction technique
[2017-01-01] MEDS: AMPHOTERICIN B LIPOSOME IV SCH (15:43)
[2017-01-01] MEDS: DEXTROSE 5% IV SCH (15:43)
--- NOTE | 2017-01-01 15:48 | CONS ---
DATE OF CONSULTATION: ATTENDING PHYSICIAN: Dr. Celestin. REASON FOR CONSULTATION: Abnormal chest x-ray, AIDS, fever and headache. HISTORY OF PRESENT ILLNESS: The patient is a 46-year-old male, who has AIDS with CD4 count of 56. He is followed by Dr. Brennan as an outpatient and has been on Bactrim, azithromycin, valacyclovir and ____. He was brought into the hospital with high-grade fever and headache. He had 3 days of weakness, chills and a throbbing headache. He does not have a cough, no hemoptysis ____ weight loss. He underwent imaging study, which showed CT head, which was unremarkable. He underwent lumbar puncture, which showed a low glucose level. The patient's chest x-ray was reviewed by me and it shows tiny micro nodules symmetrically and bilaterally with no pleural effusion. He denies any TB exposure, never had any PPD done in the past. His is not short of breath, no hemoptysis. PAST MEDICAL HISTORY: History of AIDS. PAST SURGICAL HISTORY: There are no recent surgeries. ALLERGIES: None. MEDICATIONS: All reviewed as listed in the [facility] including broad spectrum antibiotics, fluconazole, Bactrim, vancomycin and Rocephin. REVIEW OF SYSTEMS: Twelve-point systems were obtained, Pertinent positive discussed in my history of present illness, otherwise noncontributory. All systems that were negative were reviewed as well. SOCIAL HISTORY: History of AIDS. FAMILY HISTORY: Noncontributory to lungs. PHYSICAL EXAMINATION: VITAL SIGNS: T-max of 100.2. Blood pressure is 141/85, pulse ox 97% on room air. NECK: Supple. LUNGS: Diminished breath sounds. CARDIOVASCULAR: Regular. ABDOMEN: Soft, nontender. EXTREMITIES: With no pitting edema. LABORATORY DATA: Reviewed. White cell count 6.0, hemoglobin 10.7 and platelets are 106. His lumbar puncture has shown a white cell count 60, glucose is 13. CSF protein 133. His influenza was negative. IMPRESSION: 1. Abnormal chest x-ray with diffuse tiny micro nodules in a patient, who has acquired immune deficiency syndrome and has a CD4 count of 56. Now presented with severe headache, high grade fever. The differential diagnoses would include: a). Fungal meningitis such as cryptococcal b). Cannot exclude TB meningitis. c). Less likely pneumocystis. 2. Abnormal chest x-ray with tiny micronodular infiltrates, could be cryptococcal pneumonia versus miliary TB. We will obtain noncontrast CT chest. 3. Acquired immune deficiency syndrome. 4. Highly suspected meningitis, fungal versus tuberculosis versus viral. RECOMMENDATIONS: 1. Discussed with Dr. Arden Brennan. Continue with broad-spectrum antibiotics. He has just called the lab and seeing some yeast in the lumbar fluid and this would highly favor cryptococcal meningitis and cryptococcal pneumonia. 2. Noncontrast CT chest to further assess for parenchymal infiltrates. 3. Follow all the culture results. 4. Follow Infectious Disease recommendations. 5. Discussed with Dr. Brennan. NORBERTO ALLEN MD DR: KIARA/sean JOB#: [id number] / [id number]
[2017-01-01] MEDS: FLUCYTOSINE 500 MG PO SCH ×2 (16:42→20:42)
[2017-01-01] MEDS: valACYclovir 500 MG TABLET. PO SCH (20:44)
[2017-01-02] MEDS: FLUCYTOSINE 500 MG PO SCH ×4 (02:34→20:31)
[2017-01-02 03:00] VITALS: BP 129/86
--- NOTE | 2017-01-02 03:52 | CONS ---
DATE OF CONSULTATION: 01/01/2017 The patient's room is 567. REQUESTING PHYSICIAN: Dr. Camejo. REASON FOR CONSULTATION: HIV, headache and fever. HISTORY OF PRESENT ILLNESS: The patient is a pleasant 46-year-old gentleman known to my clinic, just recently I met him. He was diagnosed earlier this year in September with HIV disease. At the time of his diagnosis his CD4 count was 56 and his viral load was approximately 92,000. In the outpatient setting he was started on Genvoya and started on daily Bactrim as well as weekly azithromycin. He had been doing fairly well; however, he presented to the office yesterday, was seen by Dr. Moralez, was complaining of headache that started 3 days earlier. Denies any ill contacts. He did have fever and was bothering his eyes. He has some nausea. Denies any rashes or traumas. Subsequently presented to [facility] Emergency Room last night. Initial temperature was 99.9, white count was 6 with essentially a normal differential. He has had some mild elevation in his AST and ALT and I was consulted and discussed the case with the Emergency Room physician, who stated he tried to do a lumbar puncture, but was unable to acquire this, so he arranged to have Interventional Radiology do this. In the meantime instituted vancomycin, Rocephin as well as IV fluconazole. The patient now is currently status post his LP. He states he is doing roughly about the same. PAST MEDICAL HISTORY: Positive for ADHD, anxiety, previous cellulitis, hepatitis B, AIDS, herpes ____. REVIEW OF SYSTEMS: Otherwise negative except for what is mentioned above. ALLERGIES: No known drug allergies. SOCIAL HISTORY: No tobacco or alcohol. FAMILY HISTORY: Noncontributory. Denies any ill contacts. CURRENT MEDICATIONS: Again, he did receive fluconazole and Rocephin. He is on IV vancomycin, Dilaudid, Ativan, Valtrex, and weekly azithromycin. PHYSICAL EXAMINATION: VITAL SIGNS: T-max turned out to be 100.2, currently 99.3; pulse 85, respirations 20, blood pressure 141/85, satting 97% on room air. CONSTITUTIONAL: He is cooperative. He is lying in bed. He is in no acute distress. HEENT: He does have some mild photophobia, but pupils are equal. Extraocular muscles are intact. Oral cavity, pharynx is clear. NECK: Supple. LUNGS: Clear to auscultation. HEART: S1, S2. ABDOMEN: Soft, nontender, nondistended. Positive bowel sounds, mildly obese. EXTREMITIES: Without clubbing, cyanosis. No gross edema. SKIN: Warm to touch without signs of generalized rash. He does have some tattoos. NEUROLOGIC: Nonfocal, moves all extremities. PSYCHIATRIC: Affect is appropriate. LABORATORY DATA: White count was 6, hemoglobin 10.7, platelets of 106 with 63 segs, 3 bands, 16 lymphs. Creatinine is 0.8 and glucose was 82, AST 118, ALT 65, alkaline phosphatase 225. Urinalysis was clean, not consistent with urinary tract infection. Influenza screen was negative. CSF, total protein 133.7, glucose of 13. CT scan of the head showed no acute process. Chest x-ray reported as diffuse tiny miliary pulmonary opacities, diagnostics are included. IMPRESSION: 1. Fever. 2. Headache, questionable meningitis, likely bacterial given a glucose of 13, cell count is still currently pending. He has an elevated total protein as well. 3. Acquired immunodeficiency syndrome with a viral load of close to 92,000 initially, as well as CD4 count of 56. Currently on Genvoya. Had been taking his Bactrim daily as well as weekly azithromycin. 4. Abnormal chest x-ray. 5. History of hepatitis B. 6. History of herpes ____. RECOMMENDATIONS: For now, continue the vancomycin, Rocephin, and fluconazole. We will add ampicillin and his oral Bactrim, daily azithromycin. We will continue his Genvoya. Did discuss with pharmacy. We will check serum, crypto, histo, CMV, mycoplasma. Also, check CSF cryptococcus, VDRL, as well as HSV. Order a PICC line. Follow up on his LFTs, labs and cultures. Thank you for allowing me to see and participate in the patient's care. If you have any questions, please do not hesitate to contact me. OMI HANSON MD DR: ART/sean JOB#: [id number] / [id number]
[2017-01-02 07:00] VITALS: BP 111/68
[2017-01-02] MEDS ORDERED: COLLAGEN SUPPORT PO SCH (09:00)
[2017-01-02] MEDS: valACYclovir 500 MG TABLET. PO SCH ×2 (09:18→20:31)
[2017-01-02] MEDS: ACETAMINOPHEN 325 MG TABLET. PO PRN ×2 (09:18→19:30)
[2017-01-02] MEDS: AZITHROMYCIN 250 MG TABLET. PO SCH (09:19)
[2017-01-02] MEDS: SMZ/TMP 800/160MG TABLET. PO SCH (09:19)
--- NOTE | 2017-01-02 09:24 | PDOC ---
PULMONARY PROGRESS NOTES Subjective still having headache high grade fever Vitals Vital Signs Date Time Temp Pulse Resp B/P Pulse Ox O2 Delivery O2 Flow Rate FiO2 01/02/17 07:00 101.0 92 18 111/68 97 Room Air 101.0 General: Alert, Lethargic Lungs: Clear Abdomen: Soft Neuro Exam: Alert Extremities: No Edema Skin: Warm Labs Laboratory Tests Test 12/31/16 11:35 12/31/16 20:38 12/31/16 21:50 12/31/16 22:05 Lactic Acid Level 2.0mmol/L (0.4-2.0) 1.1mmol/L (0.4-2.0) Influenza Type A Antigen Negative (NEGATIVE) Influenza Type B Antigen Negative (NEGATIVE) White Blood Count 6.0x10^3/uL (4.0-11.0) Red Blood Count 3.54x10^6/uL (4.30-5.70) Hemoglobin 10.7g/dL (13.0-17.5) Hematocrit 32.2% (39.0-53.0) Mean Corpuscular Volume 91fL (79-100) Mean Corpuscular Hemoglobin 30pg (25-35) Mean Corpuscular Hemoglobin Concent 33g/dL (31-37) Red Cell Distribution Width 15.8% (11.5-14.5) Platelet Count 106x10^3/uL (140-400) Neutrophils (%) (Auto) 43% (31-73) Lymphocytes (%) (Auto) 29% (24-48) Monocytes (%) (Auto) 23% (0-9) Eosinophils (%) (Auto) 2% (0-3) Basophils (%) (Auto) 3% (0-3) Neutrophils # (Auto) 2.6x10^3uL (1.8-7.7) Lymphocytes # (Auto) 1.7x10^3/uL (1.0-4.8) Monocytes # (Auto) 1.4x10^3/uL (0.0-1.1) Eosinophils # (Auto) 0.1x10^3/uL (0.0-0.7) Basophils # (Auto) 0.2x10^3/uL (0.0-0.2) Segmented Neutrophils % 63% (35-66) Band Neutrophils % 3% (0-9) Lymphocytes % 16% (24-48) Atypical Lymphocytes % (Manual) 1% (0-0) Monocytes % 14% (0-10) Eosinophils % 2% (0-5) Basophils % 1% (0-3) Platelet Estimate Decreased (ADEQUATE) Sodium Level 132mmol/L (136-145) Potassium Level 3.9mmol/L (3.5-5.1) Chloride Level 99mmol/L (98-107) Carbon Dioxide Level 24mmol/L (21-32) Anion Gap 9 (6-14) Blood Urea Nitrogen 10mg/dL (8-26) Creatinine 0.8mg/dL (0.7-1.3) Estimated GFR (Cockcroft-Gault) 105.0 BUN/Creatinine Ratio 13 (6-20) Glucose Level 82mg/dL (70-99) Calcium Level 7.9mg/dL (8.5-10.1) Total Bilirubin 0.6mg/dL (0.2-1.0) Aspartate Amino Transf (AST/SGOT) 118U/L (15-37) Alanine Aminotransferase (ALT/SGPT) 65U/L (16-63) Alkaline Phosphatase 225U/L (46-116) Total Protein 8.2g/dL (6.4-8.2) Albumin 1.9g/dL (3.4-5.0) Albumin/Globulin Ratio 0.3 (1.0-1.7) Urine Collection Type Unknown Urine Color Yellow Urine Clarity Clear Urine pH 6.5 Urine Specific [place] 1.015 Urine Protein Negativemg/dL (NEG-TRACE) Urine Glucose (UA) Negativemg/dL (NEG) Urine Ketones (Stick) Negativemg/dL (NEG) Urine Blood Negative (NEG) Urine Nitrite Negative (NEG) Urine Bilirubin Negative (NEG) Urine Urobilinogen Dipstick 1.0mg/dL (0.2 mg/dL) Urine Leukocyte Esterase Negative (NEG) Urine RBC Occ/HPF (0-2) Urine WBC 0/HPF (0-4) Urine Squamous Epithelial Cells Few/LPF Urine Bacteria 0/HPF (0-FEW) Urine Mucus Slight/LPF Test 01/01/17 02:00 01/01/17 10:15 Nasal Screen MRSA (PCR) Negative (Negative) CSF Color Colorless CSF Clarity Clear CSF WBC 60 CSF RBC 0 CSF Mononuclear WBCs % 97% CSF Polynuclear WBCs (%) 3% CSF Glucose 13mg/dL (37-70) CSF Total Protein 133.7mg/dL (15.0-45.0) Laboratory Tests Test 01/01/17 10:15 CSF Color Colorless CSF Clarity Clear CSF WBC 60 CSF RBC 0 CSF Mononuclear WBCs % 97% CSF Polynuclear WBCs (%) 3% CSF Glucose 13mg/dL (37-70) CSF Total Protein 133.7mg/dL (15.0-45.0) Medications Active Scripts Medications Dose Route/Sig Days Date Category Valacyclovir (Valacyclovir Hcl) 1,000 Mg Tablet 1,000 Mg PO BID 01/01/17 Reported [Azithromycin] 1,200 Mg PO WEEKLY 01/01/17 Reported Genvoya Tablet (Elviteg/Aline/Emtric/Tenofo Ala) 1 Each Tablet 1 Each PO DAILY 01/01/17 Reported [Iron] 27 Mg PO DAILY 01/01/17 Reported [Collagen Support] 1,500 Mcg PO DAILY 01/01/17 Reported Impression . 1. Abnormal chest x-ray with diffuse tiny micro nodules in a patient, who has acquired immune deficiency syndrome and has a CD4 count of 56. Now presented with severe headache, high grade fever. The differential diagnoses would include: a). Fungal meningitis such as cryptococcal (confirmed yeast on LP) b). Cannot exclude TB meningitis. c). Less likely pneumocystis. 2. Abnormal chest x-ray and CT chest with tiny micronodular infiltrates throughout, could be cryptococcal pneumonia versus miliary TB. Also mass like consolidation TASHA, fungal pneumonia most likely,? neoplasm 3. Acquired immune deficiency syndrome. 4. Headache/high fevers due to meningitis, Plan . 1. Discussed with Dr. Arden Brennan. Continue with broad-spectrum antibiotics/ anti-fungals f/u cryptococcal titres and TB spot test 2. Noncontrast CT chest reviewed 3. Follow all the culture results. 4. Follow Infectious Disease recommendations. 5. repeat CXR next week, If no improvement, consider Bronch NORBERTO ALLEN MD Jan 02, 2017 09:24
[2017-01-02] MEDS: MORPHINE SULFATE 4 MG/ML DISP.SYRIN. IV PRN ×2 (09:30→20:32)
--- NOTE | 2017-01-02 09:37 | PDOC ---
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 Plan Continue current antibiotics and care Discussed with Dr. Brennan Subjective Has a bad headache now, but was much better yesterday. Objective Vital Signs Date Time Temp Pulse Resp B/P Pulse Ox O2 Delivery O2 Flow Rate FiO2 01/02/17 09:30 Room Air 01/02/17 07:00 101.0 92 18 111/68 97 101.0 Intake and Output 01/02/17 06:59 Intake Total 200 ml Output Total 1325 ml Balance -1125 ml Intake Oral 200 ml Output Urine Total 1325 ml # Voids 1 PHYSICAL EXAM Alert. Oriented to time, place and person. PERRL. EOMI. CN: no focal findings. Muscle tone: normal. Muscle strength: 5/5 DTR: 2+ Plantar reflex: flexor Gait: not examined in bed. Sensory exam: no abnormal findings. No cerebellar signs elicited. Review of Relevant I have reviewed the following items garland (where applicable) has been applied. Labs Laboratory Tests Test 12/31/16 11:35 12/31/16 20:38 12/31/16 21:50 12/31/16 22:05 Lactic Acid Level 2.0mmol/L (0.4-2.0) 1.1mmol/L (0.4-2.0) Influenza Type A Antigen Negative (NEGATIVE) Influenza Type B Antigen Negative (NEGATIVE) White Blood Count 6.0x10^3/uL (4.0-11.0) Red Blood Count 3.54x10^6/uL (4.30-5.70) Hemoglobin 10.7g/dL (13.0-17.5) Hematocrit 32.2% (39.0-53.0) Mean Corpuscular Volume 91fL (79-100) Mean Corpuscular Hemoglobin 30pg (25-35) Mean Corpuscular Hemoglobin Concent 33g/dL (31-37) Red Cell Distribution Width 15.8% (11.5-14.5) Platelet Count 106x10^3/uL (140-400) Neutrophils (%) (Auto) 43% (31-73) Lymphocytes (%) (Auto) 29% (24-48) Monocytes (%) (Auto) 23% (0-9) Eosinophils (%) (Auto) 2% (0-3) Basophils (%) (Auto) 3% (0-3) Neutrophils # (Auto) 2.6x10^3uL (1.8-7.7) Lymphocytes # (Auto) 1.7x10^3/uL (1.0-4.8) Monocytes # (Auto) 1.4x10^3/uL (0.0-1.1) Eosinophils # (Auto) 0.1x10^3/uL (0.0-0.7) Basophils # (Auto) 0.2x10^3/uL (0.0-0.2) Segmented Neutrophils % 63% (35-66) Band Neutrophils % 3% (0-9) Lymphocytes % 16% (24-48) Atypical Lymphocytes % (Manual) 1% (0-0) Monocytes % 14% (0-10) Eosinophils % 2% (0-5) Basophils % 1% (0-3) Platelet Estimate Decreased (ADEQUATE) Sodium Level 132mmol/L (136-145) Potassium Level 3.9mmol/L (3.5-5.1) Chloride Level 99mmol/L (98-107) Carbon Dioxide Level 24mmol/L (21-32) Anion Gap 9 (6-14) Blood Urea Nitrogen 10mg/dL (8-26) Creatinine 0.8mg/dL (0.7-1.3) Estimated GFR (Cockcroft-Gault) 105.0 BUN/Creatinine Ratio 13 (6-20) Glucose Level 82mg/dL (70-99) Calcium Level 7.9mg/dL (8.5-10.1) Total Bilirubin 0.6mg/dL (0.2-1.0) Aspartate Amino Transf (AST/SGOT) 118U/L (15-37) Alanine Aminotransferase (ALT/SGPT) 65U/L (16-63) Alkaline Phosphatase 225U/L (46-116) Total Protein 8.2g/dL (6.4-8.2) Albumin 1.9g/dL (3.4-5.0) Albumin/Globulin Ratio 0.3 (1.0-1.7) Urine Collection Type Unknown Urine Color Yellow Urine Clarity Clear Urine pH 6.5 Urine Specific [place] 1.015 Urine Protein Negativemg/dL (NEG-TRACE) Urine Glucose (UA) Negativemg/dL (NEG) Urine Ketones (Stick) Negativemg/dL (NEG) Urine Blood Negative (NEG) Urine Nitrite Negative (NEG) Urine Bilirubin Negative (NEG) Urine Urobilinogen Dipstick 1.0mg/dL (0.2 mg/dL) Urine Leukocyte Esterase Negative (NEG) Urine RBC Occ/HPF (0-2) Urine WBC 0/HPF (0-4) Urine Squamous Epithelial Cells Few/LPF Urine Bacteria 0/HPF (0-FEW) Urine Mucus Slight/LPF Test 01/01/17 02:00 01/01/17 10:15 Nasal Screen MRSA (PCR) Negative (Negative) CSF Color Colorless CSF Clarity Clear CSF WBC 60 CSF RBC 0 CSF Mononuclear WBCs % 97% CSF Polynuclear WBCs (%) 3% CSF Glucose 13mg/dL (37-70) CSF Total Protein 133.7mg/dL (15.0-45.0) Laboratory Tests Test 01/01/17 10:15 CSF Color Colorless CSF Clarity Clear CSF WBC 60 CSF RBC 0 CSF Mononuclear WBCs % 97% CSF Polynuclear WBCs (%) 3% CSF Glucose 13mg/dL (37-70) CSF Total Protein 133.7mg/dL (15.0-45.0) Microbiology 12/31/16 Blood Culture - Preliminary, Resulted NO GROWTH AFTER 1 DAY 01/01/17 Gram Stain - Final, Complete Medications Current Medications Sodium Chloride (Iv Sodium Chloride 0.9% 1000ml Bag) 1,000 ml @ 1,000 mls/hr 1X ONCE IV Last administered on 12/31/16 22:00; Start 12/31/16 at 22:00; Stop 12/31/16 at 22:59; Status DC Morphine Sulfate 4 mg 1X ONCE IV Last administered on 12/31/16 22:02; Start 12/31/16 at 22:00; Stop 12/31/16 at 22:01; Status DC Lorazepam (Ativan) 2 mg STK-MED ONCE .ROUTE ; Start 12/31/16 at 22:31; Stop at 22:32; Status DC Lorazepam (Ativan) 1 mg 1X STAT IV Last administered on 12/31/16 22:35; Start 12/31/16 at 22:32; Stop 12/31/16 at 22:38; Status DC Acetaminophen (Tylenol) 1,000 mg 1X ONCE PO Last administered on 12/31/16 23: 11; Start 12/31/16 at 23:15; Stop 12/31/16 at 23:16; Status DC Hydromorphone HCl (Dilaudid) 0.5 mg 1X ONCE IV Last administered on 12/31/16 23:11; Start 12/31/16 at 23:15; Stop 12/31/16 at 23:16; Status DC Vancomycin HCl 1 each 1 each PRN DAILY PRN MC SEE COMMENTS Last administered on 01/01/17 02:42; Start 12/31/16 at 23:15; Stop 01/01/17 at 13:28; Status DC Ceftriaxone Sodium 2 gm/ Sodium Chloride 100 ml @ 200 mls/hr 1X ONCE IV Last administered on 12/31/16 23:30; Start 12/31/16 at 23:30; Stop 12/31/16 at 23:59 ; Status DC Vancomycin HCl 2 gm/Sodium Chloride 500 ml @ 250 mls/hr 1X ONCE IV Last administered on 01/01/17 00:00; Start 01/01/17 at 00:00; Stop 01/01/17 at 01:59 ; Status DC Fluconazole/ Sodium Chloride (Diflucan 400mg/ 200ml Premix) 200 ml @ 100 mls/ hr 1X ONCE IV Last administered on 01/01/17 03:12; Start 12/31/16 at 23:30; Stop 01/01/17 at 01:29; Status DC Ondansetron HCl (Zofran) 4 mg PRN Q8HRS PRN IV NAUSEA/VOMITING; Start 01/01/17 at 00:30; Stop 01/02/17 at 00:29; Status DC Morphine Sulfate 4 mg 4 mg PRN Q2HR PRN IV SEVERE PAIN Last administered on 20:44; Start 01/01/17 at 00:30; Stop 01/02/17 at 00:29; Status DC Sodium Chloride (Iv Sodium Chloride 0.9% 1000ml Bag) 1,000 ml @ 100 mls/hr Q10H IV Last administered on 01/01/17 02:07; Start 01/01/17 at 00:28; Stop at 09:20; Status DC Acetaminophen 650 mg 650 mg PRN Q4HRS PRN PO FEVER Last administered on 23:35; Start 01/01/17 at 00:30; Stop 01/02/17 at 00:29; Status DC Vancomycin HCl/ Sodium Chloride (Iv Sodium Chloride 0.9% 500ml Bag) 500 ml @ 250 mls/hr Q8H IV Last administered on 01/01/17 08:13; Start 01/01/17 at 08:00 ; Stop 01/01/17 at 13:28; Status DC Vancomycin HCl 1 each 1X ONCE MC ; Start 01/01/17 at 23:30; Stop 01/01/17 at 23 :30; Status DC Non-Formulary Medication 1 each DAILY PO ; Start 01/02/17 at 09:00; Status UNV Valacyclovir HCl (Valtrex) 1,000 mg BID PO Last administered on 01/02/17 09:18 ; Start 01/01/17 at 21:00 Non-Formulary Medication 1,200 mg WEEKLY PO ; Start 01/08/17 at 09:00; Stop at 09:00; Status DC Non-Formulary Medication 1500 mcg 1,500 mcg DAILY PO ; Start 01/02/17 at 09:00; Status UNV Sodium Chloride (Iv Sodium Chloride 0.9% 1000ml Bag) 1,000 ml @ 150 mls/hr Q6H40M IV ; Start 01/01/17 at 09:05; Stop 01/01/17 at 09:34; Status DC Saliva Substitute 2 spray 2 spray PRN Q15MIN PRN PO DRY MOUTH; Start 01/01/17 at 09:15 Ceftriaxone Sodium 2 gm/ Sodium Chloride 100 ml @ 200 mls/hr Q12HR IV Last administered on 01/02/17 09:21; Start 01/01/17 at 21:00 Ampicillin Sodium 2 gm/Sodium Chloride 100 ml @ 200 mls/hr Q4HRS IV Last administered on 01/01/17 13:09; Start 01/01/17 at 12:00; Stop 01/01/17 at 13:28 ; Status DC Fluconazole/ Sodium Chloride (Diflucan 400mg/ 200ml Premix) 200 ml @ 100 mls/ hr Q24H IV ; Start 01/01/17 at 12:00; Stop 01/01/17 at 13:28; Status DC Trimethoprim/ Sulfamethoxazole (Bactrim Ds) 1 tab DAILY PO Last administered on 01/02/17 09:19; Start 01/01/17 at 09:00 Azithromycin 500 mg 500 mg DAILY PO Last administered on 01/02/17 09:19; Start 01/01/17 at 11:30 Amphotericin B/ Dextrose (Ambisome) 500 ml @ 250 mls/hr Q24H IV Last administered on 01/01/17 15:43; Start 01/01/17 at 14:00 Flucytosine (Ancobon) 2,500 mg Q6H PO Last administered on 01/02/17 09:19; Start 01/01/17 at 14:00 Morphine Sulfate 4 mg PRN Q2HR PRN IV PAIN Last administered on 01/02/17 09:30 ; Start 01/02/17 at 08:00 Acetaminophen (Tylenol) 650 mg PRN Q6HRS PRN PO fever or pain Last administered on 01/02/17 09:18; Start 01/02/17 at 08:00 Active Scripts Active Reported Valacyclovir (Valacyclovir Hcl) 1,000 Mg Tablet 1,000 Mg PO BID [Azithromycin] 1,200 Mg PO WEEKLY Genvoya Tablet (Elviteg/Aline/Emtric/Tenofo Ala) 1 Each Tablet 1 Each PO DAILY [Iron] 27 Mg PO DAILY [Collagen Support] 1,500 Mcg PO DAILY Vitals/I & O Vital Sign - Last 24 Hours 01/01/17 01/01/17 01/01/17 01/01/17 10:44 11:05 11:13 11:28 Temp 99.3 99.3 Pulse 85 84 83 Resp 20 B/P 141/85 126/76 120/76 Pulse Ox 97 96 96 O2 Delivery Room Air Room Air 01/01/17 01/01/17 01/01/17 01/01/17 11:43 11:58 12:28 13:01 Pulse 77 81 75 Resp 20 B/P 123/67 126/66 118/73 Pulse Ox 95 96 95 O2 Delivery Room Air Room Air Room Air Room Air 01/01/17 01/01/17 01/01/17 01/01/17 13:28 14:28 19:00 20:44 Temp 99.7 99.7 Pulse 85 85 88 Resp B/P 131/82 129/79 133/89 Pulse Ox 96 96 96 O2 Delivery Room Air Room Air Room Air 01/01/17 01/01/17 01/02/17 01/02/17 22:11 23:29 03:00 07:00 Temp 100.0 98.3 101.0 100.0 98.3 101.0 Pulse 85 84 92 Resp B/P 132/83 129/86 111/68 Pulse Ox 96 96 96 97 O2 Delivery Room Air Room Air Room Air Room Air 01/02/17 09:30 O2 Delivery Room Air Intake and Output 01/01/17 01/01/17 01/02/17 14:59 22:59 06:59 Intake Total 200 ml Output Total 350 ml 975 ml Balance -350 ml -775 ml ITZEL CONTEH MD Jan 02, 2017 09:37
[2017-01-02] MEDS ORDERED: SODIUM CHLORIDE 0.65% NASAL SPRAY 45ML BOTTLE. NS PRN (10:45)
--- NOTE | 2017-01-02 10:58 | PDOC ---
Infectious Disease Note Subjective Subjective Feeling better overall. Did feel real well yesterday afternoon but MANDUJANO returned and has sinus congestion. ROS ROS GEN: Denies fevers, chills, sweats HEENT: Denies blurred vision, sore throat CV: Denies chest pain RESP: Denies shortness of air, cough GI: Denies n/v/d NEURO: Denies confusion, dizziness MSK: Denies weakness, joint pain/swelling Vital Sign Vital Signs Vital Signs Date Time Temp Pulse Resp B/P Pulse Ox O2 Delivery O2 Flow Rate FiO2 01/02/17 09:30 Room Air 01/02/17 07:00 101.0 92 18 111/68 97 101.0 Physical Exam PHYSICAL EXAM GENERAL: NAD, Alert, looks some better HEENT: PERRL, EOMI OC/OP - clear NECK: Supple, no JVD, no LN LUNGS: Clear HEART: S1S2, no gallop, no murmur ABD: Soft, NT, no organomegaly, no rebound EXT: No edema, no cyanosis [employer]: Alert, 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, no focal neurologic deficit SKIN: No rash IV: PICC RUE clean Objective Assessment Fever ? 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 On Genvoya/Bactrim/Weekly Azithromycin Abnormal CXR H/o Hep B H/o Herpes oralis Plan Plan of Care Cont Rocephin/Azithromycin/Bactrim/Valtrex Cont Ambisome/Flucytosine Premed with benadyl and Tylenol prior to Ambisome [place] nasal spray Cont Genvoya d/w pharmacy F/u Serum crypto/Histo/CMV Igm/Mycoplasma/TB spot CSF crypto/VDRL/HSV F/u LFTs/Labs/cults Will need to monitor electrolytes - K, Mg/ Phos with Ambisome Will need repeat LP in a day or so and check for opening pressure OMI HANSON MD Jan 02, 2017 10:57
[2017-01-02 11:26] VITALS: BP 118/76
[2017-01-02 11:35] LABS: BASO # 0.1 x10^3/uL (0.0-0.2); BASO % 1 % (0-3); EOS % 2 % (0-3); HEMATOCRIT 32.3 % (39.0-53.0); HEMOGLOBIN 11.2 g/dL (13.0-17.5); LYMPH % 29 % (24-48); MEAN CORPUSCULAR HEMOGLOBIN 31 pg (25-35); MEAN CORPUSCULAR HGB CONC 35 g/dL (31-37); MEAN CORPUSCULAR VOLUME 90 fL (79-100); MONO % 29 % (0-9); NEUT % 39 % (31-73); PLATELET COUNT 115 x10^3/uL (140-400); RED BLOOD COUNT 3.59 x10^6/uL (4.30-5.70); RED CELL DISTRIBUTION WIDTH 15.7 % (11.5-14.5); WHITE BLOOD COUNT 7.1 x10^3/uL (4.0-11.0)
[2017-01-02 11:49] LABS: MAGNESIUM 1.9 mg/dL (1.8-2.4); PHOSPHORUS 3.7 mg/dL (2.6-4.7)
[2017-01-02 11:52] LABS: ALBUMIN 1.8 g/dL (3.4-5.0); ALBUMIN/GLOBULIN RATIO 0.3 (1.0-1.7); CALCIUM 8.2 mg/dL (8.5-10.1); CREATININE 1.2 mg/dL (0.7-1.3); GFR 65.8; POTASSIUM 3.6 mmol/L (3.5-5.1); TOTAL BILIRUBIN 0.5 mg/dL (0.2-1.0); TOTAL PROTEIN 8.1 g/dL (6.4-8.2)
[2017-01-02] MEDS: ACETAMINOPHEN 325 MG TABLET. PO SCH ×2 (12:43→19:30)
[2017-01-02] MEDS: [UNRECOGNIZED DRUG - OTHER] PO SCH (12:43)
[2017-01-02 12:44] LABS: % BASOS 1 % (0-3)
[2017-01-02 12:46] LABS: PLT ESTIMATE DECREASED (ADEQUATE)
--- NOTE | 2017-01-02 13:20 | PDOC ---
PROGRESS NOTES Chief Complaint Chief Complaint 1. 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 AIDS On Genvoya/Bactrim/Weekly Azithromycin 3. Fever ? related to infection vs Ambisome now H/o Hep B H/o Herpes oralis SIRS POA, infectious, no organ dysfcn THrombocytopenia, stable ELevated LFTS Hyponatremia CHronci sinusitis History of Present Illness History of Present Illness Doing well HEadache only when he has fevers LAbs reviewed, other notes reviewed Platelets low 100s but stable LFTs moderately elevated likely related from HAART Better 100% than on admission he claims Claims has chronic sinusitis x 2 yrs Did discuss once his infections is over - visit ENT for sinusitis intervention - caused fungal mening in this immunocomp - he understands PLAN: Follow ID recs Labs MOntor for fevers Vitals Vitals Vital Signs Date Time Temp Pulse Resp B/P Pulse Ox O2 Delivery O2 Flow Rate FiO2 01/02/17 11:26 98.7 93 16 118/76 97 Room Air 98.7 Physical Exam General: Alert, Oriented X3, Cooperative, mild distress, moderate distress Lungs: Clear Abdomen: Normal bowel sounds, Soft Extremities: No clubbing, No cyanosis, No edema Skin: No significant lesion Labs LABS Laboratory Tests Test 01/02/17 11:30 White Blood Count 7.1x10^3/uL (4.0-11.0) Red Blood Count 3.59x10^6/uL (4.30-5.70) Hemoglobin 11.2g/dL (13.0-17.5) Hematocrit 32.3% (39.0-53.0) Mean Corpuscular Volume 90fL (79-100) Mean Corpuscular Hemoglobin 31pg (25-35) Mean Corpuscular Hemoglobin Concent 35g/dL (31-37) Red Cell Distribution Width 15.7% (11.5-14.5) Platelet Count 115x10^3/uL (140-400) Neutrophils (%) (Auto) 39% (31-73) Lymphocytes (%) (Auto) 29% (24-48) Monocytes (%) (Auto) 29% (0-9) Eosinophils (%) (Auto) 2% (0-3) Basophils (%) (Auto) 1% (0-3) Neutrophils # (Auto) 2.8x10^3uL (1.8-7.7) Lymphocytes # (Auto) 2.0x10^3/uL (1.0-4.8) Monocytes # (Auto) 2.0x10^3/uL (0.0-1.1) Eosinophils # (Auto) 0.2x10^3/uL (0.0-0.7) Basophils # (Auto) 0.1x10^3/uL (0.0-0.2) Segmented Neutrophils % 54% (35-66) Band Neutrophils % 3% (0-9) Lymphocytes % 16% (24-48) Atypical Lymphocytes % (Manual) 12% (0-0) Monocytes % 14% (0-10) Basophils % 1% (0-3) Platelet Estimate Decreased (ADEQUATE) Sodium Level 128mmol/L (136-145) Potassium Level 3.6mmol/L (3.5-5.1) Chloride Level 95mmol/L (98-107) Carbon Dioxide Level 26mmol/L (21-32) Anion Gap 7 (6-14) Blood Urea Nitrogen 13mg/dL (8-26) Creatinine 1.2mg/dL (0.7-1.3) Estimated GFR (Cockcroft-Gault) 65.8 BUN/Creatinine Ratio 11 (6-20) Glucose Level 100mg/dL (70-99) Calcium Level 8.2mg/dL (8.5-10.1) Phosphorus Level 3.7mg/dL (2.6-4.7) Magnesium Level 1.9mg/dL (1.8-2.4) Total Bilirubin 0.5mg/dL (0.2-1.0) Direct Bilirubin 0.3mg/dL (0.0-0.2) Aspartate Amino Transf (AST/SGOT) 133U/L (15-37) Alanine Aminotransferase (ALT/SGPT) 67U/L (16-63) Alkaline Phosphatase 210U/L (46-116) Total Protein 8.1g/dL (6.4-8.2) Albumin 1.8g/dL (3.4-5.0) Albumin/Globulin Ratio 0.3 (1.0-1.7) Review of Systems Review of Systems headaches, no fever, no emesis, n,.v Assessment and Plan Assessmemt and Plan Problems Medical Problems: (1) Fever Status: Acute (2) Headache Status: Acute (3) Immunocompromised Status: Acute Problems: Comment Review of Relevant I have reviewed the following items garland (where applicable) has been applied. Labs Laboratory Tests Test 12/31/16 20:38 12/31/16 21:50 12/31/16 22:05 01/01/17 02:00 Influenza Type A Antigen Negative (NEGATIVE) Influenza Type B Antigen Negative (NEGATIVE) White Blood Count 6.0x10^3/uL (4.0-11.0) Red Blood Count 3.54x10^6/uL (4.30-5.70) Hemoglobin 10.7g/dL (13.0-17.5) Hematocrit 32.2% (39.0-53.0) Mean Corpuscular Volume 91fL (79-100) Mean Corpuscular Hemoglobin 30pg (25-35) Mean Corpuscular Hemoglobin Concent 33g/dL (31-37) Red Cell Distribution Width 15.8% (11.5-14.5) Platelet Count 106x10^3/uL (140-400) Neutrophils (%) (Auto) 43% (31-73) Lymphocytes (%) (Auto) 29% (24-48) Monocytes (%) (Auto) 23% (0-9) Eosinophils (%) (Auto) 2% (0-3) Basophils (%) (Auto) 3% (0-3) Neutrophils # (Auto) 2.6x10^3uL (1.8-7.7) Lymphocytes # (Auto) 1.7x10^3/uL (1.0-4.8) Monocytes # (Auto) 1.4x10^3/uL (0.0-1.1) Eosinophils # (Auto) 0.1x10^3/uL (0.0-0.7) Basophils # (Auto) 0.2x10^3/uL (0.0-0.2) Segmented Neutrophils % 63% (35-66) Band Neutrophils % 3% (0-9) Lymphocytes % 16% (24-48) Atypical Lymphocytes % (Manual) 1% (0-0) Monocytes % 14% (0-10) Eosinophils % 2% (0-5) Basophils % 1% (0-3) Platelet Estimate Decreased (ADEQUATE) Sodium Level 132mmol/L (136-145) Potassium Level 3.9mmol/L (3.5-5.1) Chloride Level 99mmol/L (98-107) Carbon Dioxide Level 24mmol/L (21-32) Anion Gap 9 (6-14) Blood Urea Nitrogen 10mg/dL (8-26) Creatinine 0.8mg/dL (0.7-1.3) Estimated GFR (Cockcroft-Gault) 105.0 BUN/Creatinine Ratio 13 (6-20) Glucose Level 82mg/dL (70-99) Lactic Acid Level 1.1mmol/L (0.4-2.0) Calcium Level 7.9mg/dL (8.5-10.1) Total Bilirubin 0.6mg/dL (0.2-1.0) Aspartate Amino Transf (AST/SGOT) 118U/L (15-37) Alanine Aminotransferase (ALT/SGPT) 65U/L (16-63) Alkaline Phosphatase 225U/L (46-116) Total Protein 8.2g/dL (6.4-8.2) Albumin 1.9g/dL (3.4-5.0) Albumin/Globulin Ratio 0.3 (1.0-1.7) Urine Collection Type Unknown Urine Color Yellow Urine Clarity Clear Urine pH 6.5 Urine Specific Wallace 1.015 Urine Protein Negativemg/dL (NEG-TRACE) Urine Glucose (UA) Negativemg/dL (NEG) Urine Ketones (Stick) Negativemg/dL (NEG) Urine Blood Negative (NEG) Urine Nitrite Negative (NEG) Urine Bilirubin Negative (NEG) Urine Urobilinogen Dipstick 1.0mg/dL (0.2 mg/dL) Urine Leukocyte Esterase Negative (NEG) Urine RBC Occ/HPF (0-2) Urine WBC 0/HPF (0-4) Urine Squamous Epithelial Cells Few/LPF Urine Bacteria 0/HPF (0-FEW) Urine Mucus Slight/LPF Nasal Screen MRSA (PCR) Negative (Negative) Test 01/01/17 10:15 01/02/17 11:30 CSF Color Colorless CSF Clarity Clear CSF WBC 60 CSF RBC 0 CSF Mononuclear WBCs % 97% CSF Polynuclear WBCs (%) 3% CSF Glucose 13mg/dL (37-70) CSF Total Protein 133.7mg/dL (15.0-45.0) White Blood Count 7.1x10^3/uL (4.0-11.0) Red Blood Count 3.59x10^6/uL (4.30-5.70) Hemoglobin 11.2g/dL (13.0-17.5) Hematocrit 32.3% (39.0-53.0) Mean Corpuscular Volume 90fL (79-100) Mean Corpuscular Hemoglobin 31pg (25-35) Mean Corpuscular Hemoglobin Concent 35g/dL (31-37) Red Cell Distribution Width 15.7% (11.5-14.5) Platelet Count 115x10^3/uL (140-400) Neutrophils (%) (Auto) 39% (31-73) Lymphocytes (%) (Auto) 29% (24-48) Monocytes (%) (Auto) 29% (0-9) Eosinophils (%) (Auto) 2% (0-3) Basophils (%) (Auto) 1% (0-3) Neutrophils # (Auto) 2.8x10^3uL (1.8-7.7) Lymphocytes # (Auto) 2.0x10^3/uL (1.0-4.8) Monocytes # (Auto) 2.0x10^3/uL (0.0-1.1) Eosinophils # (Auto) 0.2x10^3/uL (0.0-0.7) Basophils # (Auto) 0.1x10^3/uL (0.0-0.2) Segmented Neutrophils % 54% (35-66) Band Neutrophils % 3% (0-9) Lymphocytes % 16% (24-48) Atypical Lymphocytes % (Manual) 12% (0-0) Monocytes % 14% (0-10) Basophils % 1% (0-3) Platelet Estimate Decreased (ADEQUATE) Sodium Level 128mmol/L (136-145) Potassium Level 3.6mmol/L (3.5-5.1) Chloride Level 95mmol/L (98-107) Carbon Dioxide Level 26mmol/L (21-32) Anion Gap 7 (6-14) Blood Urea Nitrogen 13mg/dL (8-26) Creatinine 1.2mg/dL (0.7-1.3) Estimated GFR (Cockcroft-Gault) 65.8 BUN/Creatinine Ratio 11 (6-20) Glucose Level 100mg/dL (70-99) Calcium Level 8.2mg/dL (8.5-10.1) Phosphorus Level 3.7mg/dL (2.6-4.7) Magnesium Level 1.9mg/dL (1.8-2.4) Total Bilirubin 0.5mg/dL (0.2-1.0) Direct Bilirubin 0.3mg/dL (0.0-0.2) Aspartate Amino Transf (AST/SGOT) 133U/L (15-37) Alanine Aminotransferase (ALT/SGPT) 67U/L (16-63) Alkaline Phosphatase 210U/L (46-116) Total Protein 8.1g/dL (6.4-8.2) Albumin 1.8g/dL (3.4-5.0) Albumin/Globulin Ratio 0.3 (1.0-1.7) Laboratory Tests Test 01/02/17 11:30 White Blood Count 7.1x10^3/uL (4.0-11.0) Red Blood Count 3.59x10^6/uL (4.30-5.70) Hemoglobin 11.2g/dL (13.0-17.5) Hematocrit 32.3% (39.0-53.0) Mean Corpuscular Volume 90fL (79-100) Mean Corpuscular Hemoglobin 31pg (25-35) Mean Corpuscular Hemoglobin Concent 35g/dL (31-37) Red Cell Distribution Width 15.7% (11.5-14.5) Platelet Count 115x10^3/uL (140-400) Neutrophils (%) (Auto) 39% (31-73) Lymphocytes (%) (Auto) 29% (24-48) Monocytes (%) (Auto) 29% (0-9) Eosinophils (%) (Auto) 2% (0-3) Basophils (%) (Auto) 1% (0-3) Neutrophils # (Auto) 2.8x10^3uL (1.8-7.7) Lymphocytes # (Auto) 2.0x10^3/uL (1.0-4.8) Monocytes # (Auto) 2.0x10^3/uL (0.0-1.1) Eosinophils # (Auto) 0.2x10^3/uL (0.0-0.7) Basophils # (Auto) 0.1x10^3/uL (0.0-0.2) Segmented Neutrophils % 54% (35-66) Band Neutrophils % 3% (0-9) Lymphocytes % 16% (24-48) Atypical Lymphocytes % (Manual) 12% (0-0) Monocytes % 14% (0-10) Basophils % 1% (0-3) Platelet Estimate Decreased (ADEQUATE) Sodium Level 128mmol/L (136-145) Potassium Level 3.6mmol/L (3.5-5.1) Chloride Level 95mmol/L (98-107) Carbon Dioxide Level 26mmol/L (21-32) Anion Gap 7 (6-14) Blood Urea Nitrogen 13mg/dL (8-26) Creatinine 1.2mg/dL (0.7-1.3) Estimated GFR (Cockcroft-Gault) 65.8 BUN/Creatinine Ratio 11 (6-20) Glucose Level 100mg/dL (70-99) Calcium Level 8.2mg/dL (8.5-10.1) Phosphorus Level 3.7mg/dL (2.6-4.7) Magnesium Level 1.9mg/dL (1.8-2.4) Total Bilirubin 0.5mg/dL (0.2-1.0) Direct Bilirubin 0.3mg/dL (0.0-0.2) Aspartate Amino Transf (AST/SGOT) 133U/L (15-37) Alanine Aminotransferase (ALT/SGPT) 67U/L (16-63) Alkaline Phosphatase 210U/L (46-116) Total Protein 8.1g/dL (6.4-8.2) Albumin 1.8g/dL (3.4-5.0) Albumin/Globulin Ratio 0.3 (1.0-1.7) Microbiology 12/31/16 Blood Culture - Preliminary, Resulted NO GROWTH AFTER 1 DAY 01/01/17 Anaerobic/Aerobic Culture, Resulted Pending 01/01/17 Anaerobic Culture Result 1 (JACKY), Resulted Pending 01/01/17 Aerobic Culture - Preliminary, Resulted 01/01/17 Aerobic Culture Result 1 (JACKY) - Preliminary, Resulted Medications Current Medications Sodium Chloride (Iv Sodium Chloride 0.9% 1000ml Bag) 1,000 ml @ 1,000 mls/hr 1X ONCE IV Last administered on 12/31/16 22:00; Start 12/31/16 at 22:00; Stop 12/31/16 at 22:59; Status DC Morphine Sulfate 4 mg 1X ONCE IV Last administered on 12/31/16 22:02; Start 12/31/16 at 22:00; Stop 12/31/16 at 22:01; Status DC Lorazepam (Ativan) 2 mg STK-MED ONCE .ROUTE ; Start 12/31/16 at 22:31; Stop at 22:32; Status DC Lorazepam (Ativan) 1 mg 1X STAT IV Last administered on 12/31/16 22:35; Start 12/31/16 at 22:32; Stop 12/31/16 at 22:38; Status DC Acetaminophen (Tylenol) 1,000 mg 1X ONCE PO Last administered on 12/31/16 23: 11; Start 12/31/16 at 23:15; Stop 12/31/16 at 23:16; Status DC Hydromorphone HCl (Dilaudid) 0.5 mg 1X ONCE IV Last administered on 12/31/16 23:11; Start 12/31/16 at 23:15; Stop 12/31/16 at 23:16; Status DC Vancomycin HCl 1 each 1 each PRN DAILY PRN MC SEE COMMENTS Last administered on 01/01/17 02:42; Start 12/31/16 at 23:15; Stop 01/01/17 at 13:28; Status DC Ceftriaxone Sodium 2 gm/ Sodium Chloride 100 ml @ 200 mls/hr 1X ONCE IV Last administered on 12/31/16 23:30; Start 12/31/16 at 23:30; Stop 12/31/16 at 23:59 ; Status DC Vancomycin HCl 2 gm/Sodium Chloride 500 ml @ 250 mls/hr 1X ONCE IV Last administered on 01/01/17 00:00; Start 01/01/17 at 00:00; Stop 01/01/17 at 01:59 ; Status DC Fluconazole/ Sodium Chloride (Diflucan 400mg/ 200ml Premix) 200 ml @ 100 mls/ hr 1X ONCE IV Last administered on 01/01/17 03:12; Start 12/31/16 at 23:30; Stop 01/01/17 at 01:29; Status DC Ondansetron HCl (Zofran) 4 mg PRN Q8HRS PRN IV NAUSEA/VOMITING; Start 01/01/17 at 00:30; Stop 01/02/17 at 00:29; Status DC Morphine Sulfate 4 mg 4 mg PRN Q2HR PRN IV SEVERE PAIN Last administered on 20:44; Start 01/01/17 at 00:30; Stop 01/02/17 at 00:29; Status DC Sodium Chloride (Iv Sodium Chloride 0.9% 1000ml Bag) 1,000 ml @ 100 mls/hr Q10H IV Last administered on 01/01/17 02:07; Start 01/01/17 at 00:28; Stop at 09:20; Status DC Acetaminophen 650 mg 650 mg PRN Q4HRS PRN PO FEVER Last administered on 23:35; Start 01/01/17 at 00:30; Stop 01/02/17 at 00:29; Status DC Vancomycin HCl/ Sodium Chloride (Iv Sodium Chloride 0.9% 500ml Bag) 500 ml @ 250 mls/hr Q8H IV Last administered on 01/01/17 08:13; Start 01/01/17 at 08:00 ; Stop 01/01/17 at 13:28; Status DC Vancomycin HCl 1 each 1X ONCE MC ; Start 01/01/17 at 23:30; Stop 01/01/17 at 23 :30; Status DC Elvitegravir/ Cobicis/Emtricit/ Tenof (Genvoya) 1 tab DAILY PO Last administered on 01/02/17 12:43; Start 01/02/17 at 11:00 Valacyclovir HCl (Valtrex) 1,000 mg BID PO Last administered on 01/02/17 09:18 ; Start 01/01/17 at 21:00 Non-Formulary Medication 1,200 mg WEEKLY PO ; Start 01/08/17 at 09:00; Stop at 09:00; Status DC Non-Formulary Medication 1500 mcg 1,500 mcg DAILY PO ; Start 01/02/17 at 09:00; Status UNV Sodium Chloride (Iv Sodium Chloride 0.9% 1000ml Bag) 1,000 ml @ 150 mls/hr Q6H40M IV ; Start 01/01/17 at 09:05; Stop 01/01/17 at 09:34; Status DC Saliva Substitute 2 spray 2 spray PRN Q15MIN PRN PO DRY MOUTH; Start 01/01/17 at 09:15 Ceftriaxone Sodium 2 gm/ Sodium Chloride 100 ml @ 200 mls/hr Q12HR IV Last administered on 01/02/17 09:21; Start 01/01/17 at 21:00 Ampicillin Sodium 2 gm/Sodium Chloride 100 ml @ 200 mls/hr Q4HRS IV Last administered on 01/01/17 13:09; Start 01/01/17 at 12:00; Stop 01/01/17 at 13:28 ; Status DC Fluconazole/ Sodium Chloride (Diflucan 400mg/ 200ml Premix) 200 ml @ 100 mls/ hr Q24H IV ; Start 01/01/17 at 12:00; Stop 01/01/17 at 13:28; Status DC Trimethoprim/ Sulfamethoxazole (Bactrim Ds) 1 tab DAILY PO Last administered on 01/02/17 09:19; Start 01/01/17 at 09:00 Azithromycin 500 mg 500 mg DAILY PO Last administered on 01/02/17 09:19; Start 01/01/17 at 11:30 Amphotericin B/ Dextrose (Ambisome) 500 ml @ 250 mls/hr Q24H IV Last administered on 01/01/17 15:43; Start 01/01/17 at 14:00 Flucytosine (Ancobon) 2,500 mg Q6H PO Last administered on 01/02/17 09:19; Start 01/01/17 at 14:00 Morphine Sulfate 4 mg PRN Q2HR PRN IV PAIN Last administered on 01/02/17 09:30 ; Start 01/02/17 at 08:00 Acetaminophen (Tylenol) 650 mg PRN Q6HRS PRN PO fever or pain Last administered on 01/02/17 09:18; Start 01/02/17 at 08:00 Sodium Chloride (Saline Mist Nasal) 1 fab PRN Q1HR PRN NS NASAL CONGESTION; Start 01/02/17 at 10:45 Diphenhydramine HCl (Benadryl) 25 mg DAILY PO Last administered on 01/02/17 12 :43; Start 01/02/17 at 13:30 Acetaminophen (Tylenol) 650 mg DAILY PO Last administered on 01/02/17t 12:43; Start 01/02/17 at 13:30 Active Scripts Active Reported Valacyclovir (Valacyclovir Hcl) 1,000 Mg Tablet 1,000 Mg PO BID [Azithromycin] 1,200 Mg PO WEEKLY Genvoya Tablet (Elviteg/Aline/Emtric/Tenofo Ala) 1 Each Tablet 1 Each PO DAILY [Iron] 27 Mg PO DAILY [Collagen Support] 1,500 Mcg PO DAILY Vitals/I & O Vital Sign - Last 24 Hours 01/01/17 01/01/17 01/01/17 01/01/17 13:28 14:28 19:00 20:44 Temp 99.7 99.7 Pulse 85 85 88 Resp 16 B/P 131/82 129/79 133/89 Pulse Ox 96 96 96 O2 Delivery Room Air Room Air Room Air 01/01/17 01/01/17 01/02/17 01/02/17 22:11 23:29 03:00 07:00 Temp 100.0 98.3 101.0 100.0 98.3 101.0 Pulse 85 84 92 Resp 18 B/P 132/83 129/86 111/68 Pulse Ox 96 96 96 97 O2 Delivery Room Air Room Air Room Air Room Air 01/02/17 01/02/17 09:30 11:26 Temp 98.7 98.7 Pulse 93 Resp 16 B/P 118/76 Pulse Ox 97 O2 Delivery Room Air Room Air Intake and Output 01/01/17 01/01/17 01/02/17 15:00 23:00 07:00 Intake Total 200 ml Output Total 350 ml 975 ml Balance -350 ml -775 ml MARIE CADET MD Jan 02, 2017 13:20
[2017-01-02] MEDS ORDERED: diphenhydrAMINE HCL 25 MG CAPSULE PO SCH (13:30)
[2017-01-02] MEDS: AMPHOTERICIN B LIPOSOME IV SCH (14:00)
[2017-01-02] MEDS: DEXTROSE 5% IV SCH (14:00)
[2017-01-02 14:23] VITALS: BP 106/74
[2017-01-02] MEDS ORDERED: FLUCYTOSINE 500 MG PO SCH (18:00)
[2017-01-02 19:00] VITALS: BP 127/67
[2017-01-02 22:10] LABS: HSV 1&2 IGM <0.91 Ratio (0.00-0.90)
[2017-01-02 23:05] VITALS: BP 126/79
[2017-01-03] MEDS: FLUCYTOSINE 500 MG PO SCH ×4 (02:04→21:50)
[2017-01-03 02:46] VITALS: BP 117/82
[2017-01-03 06:51] LABS: CALCIUM 8.6 mg/dL (8.5-10.1); CREATININE 1.2 mg/dL (0.7-1.3); GFR 65.8; MAGNESIUM 1.6 mg/dL (1.8-2.4); PHOSPHORUS 4.6 mg/dL (2.6-4.7)
[2017-01-03 07:00] VITALS: BP 117/77
[2017-01-03] MEDS: valACYclovir 500 MG TABLET. PO SCH ×2 (08:46→21:49)
[2017-01-03] MEDS: [UNRECOGNIZED DRUG - OTHER] PO SCH (08:46)
[2017-01-03] MEDS: AZITHROMYCIN 250 MG TABLET. PO SCH (08:46)
[2017-01-03] MEDS: SMZ/TMP 800/160MG TABLET. PO SCH (08:47)
--- NOTE | 2017-01-03 08:51 | PDOC ---
Infectious Disease Note Subjective Subjective Feeling better overall MANDUJANO better Sinus congestion still ROS ROS GEN: Denies fevers, chills, sweats HEENT: Denies blurred vision, sore throat CV: Denies chest pain RESP: Denies shortness of air, cough GI: Denies n/v/d NEURO: Denies confusion, dizziness MSK: Denies weakness, joint pain/swelling Vital Sign Vital Signs Vital Signs Date Time Temp Pulse Resp B/P Pulse Ox O2 Delivery O2 Flow Rate FiO2 01/03/17 02:46 98.6 87 18 117/82 98 Room Air 98.6 Physical Exam PHYSICAL EXAM GENERAL: NAD, Alert, looks some better HEENT: PERRL, EOMI OC/OP - clear. dentures NECK: Supple, no JVD, no LN LUNGS: Clear HEART: S1S2, no gallop, no murmur ABD: Soft, NT, no organomegaly, no rebound EXT: No edema, no cyanosis BUSINESS PROPOSAL REP: Alert, 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, no focal neurologic deficit SKIN: No rash IV: PICC RUE clean Labs Lab Laboratory Tests Test 01/02/17 11:30 01/03/17 06:10 White Blood Count 7.1x10^3/uL (4.0-11.0) Red Blood Count 3.59x10^6/uL (4.30-5.70) Hemoglobin 11.2g/dL (13.0-17.5) Hematocrit 32.3% (39.0-53.0) Mean Corpuscular Volume 90fL (79-100) Mean Corpuscular Hemoglobin 31pg (25-35) Mean Corpuscular Hemoglobin Concent 35g/dL (31-37) Red Cell Distribution Width 15.7% (11.5-14.5) Platelet Count 115x10^3/uL (140-400) Neutrophils (%) (Auto) 39% (31-73) Lymphocytes (%) (Auto) 29% (24-48) Monocytes (%) (Auto) 29% (0-9) Eosinophils (%) (Auto) 2% (0-3) Basophils (%) (Auto) 1% (0-3) Neutrophils # (Auto) 2.8x10^3uL (1.8-7.7) Lymphocytes # (Auto) 2.0x10^3/uL (1.0-4.8) Monocytes # (Auto) 2.0x10^3/uL (0.0-1.1) Eosinophils # (Auto) 0.2x10^3/uL (0.0-0.7) Basophils # (Auto) 0.1x10^3/uL (0.0-0.2) Segmented Neutrophils % 54% (35-66) Band Neutrophils % 3% (0-9) Lymphocytes % 16% (24-48) Atypical Lymphocytes % (Manual) 12% (0-0) Monocytes % 14% (0-10) Basophils % 1% (0-3) Platelet Estimate Decreased (ADEQUATE) Sodium Level 128mmol/L (136-145) 127mmol/L (136-145) Potassium Level 3.6mmol/L (3.5-5.1) 4.0mmol/L (3.5-5.1) Chloride Level 95mmol/L (98-107) 95mmol/L (98-107) Carbon Dioxide Level 26mmol/L (21-32) 24mmol/L (21-32) Anion Gap 7 (6-14) 8 (6-14) Blood Urea Nitrogen 13mg/dL (8-26) 16mg/dL (8-26) Creatinine 1.2mg/dL (0.7-1.3) 1.2mg/dL (0.7-1.3) Estimated GFR (Cockcroft-Gault) 65.8 65.8 BUN/Creatinine Ratio 11 (6-20) Glucose Level 100mg/dL (70-99) 102mg/dL (70-99) Calcium Level 8.2mg/dL (8.5-10.1) 8.6mg/dL (8.5-10.1) Phosphorus Level 3.7mg/dL (2.6-4.7) 4.6mg/dL (2.6-4.7) Magnesium Level 1.9mg/dL (1.8-2.4) 1.6mg/dL (1.8-2.4) Total Bilirubin 0.5mg/dL (0.2-1.0) Direct Bilirubin 0.3mg/dL (0.0-0.2) Aspartate Amino Transf (AST/SGOT) 133U/L (15-37) Alanine Aminotransferase (ALT/SGPT) 67U/L (16-63) Alkaline Phosphatase 210U/L (46-116) Total Protein 8.1g/dL (6.4-8.2) Albumin 1.8g/dL (3.4-5.0) Albumin/Globulin Ratio 0.3 (1.0-1.7) Objective Assessment Fever better Hyponatremia Meningitis -likely Cryptococcus. MANDUJANO better Sinus congetion - CT neg. ? septum deviation AIDS VL 91,979 Sep and CD Oct. On Genvoya/Bactrim/Weekly Azithromycin Abnormal CXR H/o Hep B H/o Herpes oralis Plan Plan of Care Cont Rocephin/Bactrim/Valtrex. Wean Rocephin soon D/c Azithromycin after today. will need to restart weekly dosing next week Cont Ambisome/Flucytosine. Premed with benadyl and Tylenol prior to Ambisome Cont Genvoya d/w pharmacy F/u Serum crypto/Histo/CMV Igm/Mycoplasma/TB spot F/u CSF crypto/VDRL/HSV F/u Labs/cults Will need electrolytes corrected Will need to monitor electrolytes - K, Mg/ Phos with Ambisome Will need repeat LP for opening pressure if he worsens for now he is significantly improved OMI HANSON MD Jan 03, 2017 08:50
[2017-01-03] MEDS ORDERED: AZITHROMYCIN 250 MG TABLET. PO SCH (09:00)
--- NOTE | 2017-01-03 09:12 | PDOC ---
PULMONARY PROGRESS NOTES Subjective much better Vitals Vital Signs Date Time Temp Pulse Resp B/P Pulse Ox O2 Delivery O2 Flow Rate FiO2 01/03/17 02:46 98.6 87 18 117/82 98 Room Air 98.6 General: Alert, No acute distress Lungs: Clear Abdomen: Soft Neuro Exam: Alert Extremities: No Edema Skin: Warm Labs Laboratory Tests Test 01/01/17 10:15 01/02/17 11:30 01/03/17 06:10 CSF Color Colorless CSF Clarity Clear CSF WBC 60 CSF RBC 0 CSF Mononuclear WBCs % 97% CSF Polynuclear WBCs (%) 3% CSF Glucose 13mg/dL (37-70) CSF Total Protein 133.7mg/dL (15.0-45.0) White Blood Count 7.1x10^3/uL (4.0-11.0) Red Blood Count 3.59x10^6/uL (4.30-5.70) Hemoglobin 11.2g/dL (13.0-17.5) Hematocrit 32.3% (39.0-53.0) Mean Corpuscular Volume 90fL (79-100) Mean Corpuscular Hemoglobin 31pg (25-35) Mean Corpuscular Hemoglobin Concent 35g/dL (31-37) Red Cell Distribution Width 15.7% (11.5-14.5) Platelet Count 115x10^3/uL (140-400) Neutrophils (%) (Auto) 39% (31-73) Lymphocytes (%) (Auto) 29% (24-48) Monocytes (%) (Auto) 29% (0-9) Eosinophils (%) (Auto) 2% (0-3) Basophils (%) (Auto) 1% (0-3) Neutrophils # (Auto) 2.8x10^3uL (1.8-7.7) Lymphocytes # (Auto) 2.0x10^3/uL (1.0-4.8) Monocytes # (Auto) 2.0x10^3/uL (0.0-1.1) Eosinophils # (Auto) 0.2x10^3/uL (0.0-0.7) Basophils # (Auto) 0.1x10^3/uL (0.0-0.2) Segmented Neutrophils % 54% (35-66) Band Neutrophils % 3% (0-9) Lymphocytes % 16% (24-48) Atypical Lymphocytes % (Manual) 12% (0-0) Monocytes % 14% (0-10) Basophils % 1% (0-3) Platelet Estimate Decreased (ADEQUATE) Sodium Level 128mmol/L (136-145) 127mmol/L (136-145) Potassium Level 3.6mmol/L (3.5-5.1) 4.0mmol/L (3.5-5.1) Chloride Level 95mmol/L (98-107) 95mmol/L (98-107) Carbon Dioxide Level 26mmol/L (21-32) 24mmol/L (21-32) Anion Gap 7 (6-14) 8 (6-14) Blood Urea Nitrogen 13mg/dL (8-26) 16mg/dL (8-26) Creatinine 1.2mg/dL (0.7-1.3) 1.2mg/dL (0.7-1.3) Estimated GFR (Cockcroft-Gault) 65.8 65.8 BUN/Creatinine Ratio 11 (6-20) Glucose Level 100mg/dL (70-99) 102mg/dL (70-99) Calcium Level 8.2mg/dL (8.5-10.1) 8.6mg/dL (8.5-10.1) Phosphorus Level 3.7mg/dL (2.6-4.7) 4.6mg/dL (2.6-4.7) Magnesium Level 1.9mg/dL (1.8-2.4) 1.6mg/dL (1.8-2.4) Total Bilirubin 0.5mg/dL (0.2-1.0) Direct Bilirubin 0.3mg/dL (0.0-0.2) Aspartate Amino Transf (AST/SGOT) 133U/L (15-37) Alanine Aminotransferase (ALT/SGPT) 67U/L (16-63) Alkaline Phosphatase 210U/L (46-116) Total Protein 8.1g/dL (6.4-8.2) Albumin 1.8g/dL (3.4-5.0) Albumin/Globulin Ratio 0.3 (1.0-1.7) Laboratory Tests Test 01/02/17 11:30 01/03/17 06:10 White Blood Count 7.1x10^3/uL (4.0-11.0) Red Blood Count 3.59x10^6/uL (4.30-5.70) Hemoglobin 11.2g/dL (13.0-17.5) Hematocrit 32.3% (39.0-53.0) Mean Corpuscular Volume 90fL (79-100) Mean Corpuscular Hemoglobin 31pg (25-35) Mean Corpuscular Hemoglobin Concent 35g/dL (31-37) Red Cell Distribution Width 15.7% (11.5-14.5) Platelet Count 115x10^3/uL (140-400) Neutrophils (%) (Auto) 39% (31-73) Lymphocytes (%) (Auto) 29% (24-48) Monocytes (%) (Auto) 29% (0-9) Eosinophils (%) (Auto) 2% (0-3) Basophils (%) (Auto) 1% (0-3) Neutrophils # (Auto) 2.8x10^3uL (1.8-7.7) Lymphocytes # (Auto) 2.0x10^3/uL (1.0-4.8) Monocytes # (Auto) 2.0x10^3/uL (0.0-1.1) Eosinophils # (Auto) 0.2x10^3/uL (0.0-0.7) Basophils # (Auto) 0.1x10^3/uL (0.0-0.2) Segmented Neutrophils % 54% (35-66) Band Neutrophils % 3% (0-9) Lymphocytes % 16% (24-48) Atypical Lymphocytes % (Manual) 12% (0-0) Monocytes % 14% (0-10) Basophils % 1% (0-3) Platelet Estimate Decreased (ADEQUATE) Sodium Level 128mmol/L (136-145) 127mmol/L (136-145) Potassium Level 3.6mmol/L (3.5-5.1) 4.0mmol/L (3.5-5.1) Chloride Level 95mmol/L (98-107) 95mmol/L (98-107) Carbon Dioxide Level 26mmol/L (21-32) 24mmol/L (21-32) Anion Gap 7 (6-14) 8 (6-14) Blood Urea Nitrogen 13mg/dL (8-26) 16mg/dL (8-26) Creatinine 1.2mg/dL (0.7-1.3) 1.2mg/dL (0.7-1.3) Estimated GFR (Cockcroft-Gault) 65.8 65.8 BUN/Creatinine Ratio 11 (6-20) Glucose Level 100mg/dL (70-99) 102mg/dL (70-99) Calcium Level 8.2mg/dL (8.5-10.1) 8.6mg/dL (8.5-10.1) Phosphorus Level 3.7mg/dL (2.6-4.7) 4.6mg/dL (2.6-4.7) Magnesium Level 1.9mg/dL (1.8-2.4) 1.6mg/dL (1.8-2.4) Total Bilirubin 0.5mg/dL (0.2-1.0) Direct Bilirubin 0.3mg/dL (0.0-0.2) Aspartate Amino Transf (AST/SGOT) 133U/L (15-37) Alanine Aminotransferase (ALT/SGPT) 67U/L (16-63) Alkaline Phosphatase 210U/L (46-116) Total Protein 8.1g/dL (6.4-8.2) Albumin 1.8g/dL (3.4-5.0) Albumin/Globulin Ratio 0.3 (1.0-1.7) Medications Active Scripts Medications Dose Route/Sig Days Date Category Valacyclovir (Valacyclovir Hcl) 1,000 Mg Tablet 1,000 Mg PO BID 01/01/17 Reported [Azithromycin] 1,200 Mg PO WEEKLY 01/01/17 Reported Genvoya Tablet (Elviteg/Aline/Emtric/Tenofo Ala) 1 Each Tablet 1 Each PO DAILY 01/01/17 Reported [Iron] 27 Mg PO DAILY 01/01/17 Reported [Collagen Support] 1,500 Mcg PO DAILY 01/01/17 Reported Impression . 1. Abnormal chest x-ray with diffuse tiny micro nodules in a patient, who has acquired immune deficiency syndrome and has a CD4 count of 56. Now presented with severe headache, high grade fever. The differential diagnoses would include: a). Cryptococcal meningitis (confirmed yeast on LP) b). unlikely TB meningitis. c). Less likely pneumocystis carini 2. Abnormal chest x-ray and CT chest with tiny micronodular infiltrates throughout, could be cryptococcal pneumonia ,less likely miliary TB. Also mass like consolidation TASHA , fungal pneumonia most likely,? neoplasm 3. Acquired immune deficiency syndrome. 4. Headache/high fevers due to meningitis, improved Plan . 1. Discussed with Dr. Arden Brennan. Continue with broad-spectrum antibiotics/ anti-fungals f/u cryptococcal titres and TB spot test, much improved 2. Noncontrast CT chest reviewed 3. Follow all the culture results. 4. Follow Infectious Disease recommendations. 5. repeat CXR next week, If no improvement, consider Bronch NORBERTO ALLEN MD Jan 03, 2017 09:12
--- NOTE | 2017-01-03 09:17 | PDOC ---
PROGRESS NOTES Chief Complaint Chief Complaint 1. 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 AIDS On Genvoya/Bactrim/Weekly Azithromycin 3. Fever ? related to infection vs Ambisome now H/o Hep B H/o Herpes oralis SIRS POA, infectious, no organ dysfcn THrombocytopenia, stable ELevated LFTS Hyponatremia CHronci sinusitis History of Present Illness History of Present Illness Doing well HEadache only when he has fevers No fevers NO white ct HAs a R PICC Planned for 2 weeks anti fungal then shift to PO Dw ID Pt concerned about losing his job - wishes to talk to SW Pt has no prob doing outpt IV infusion Mag and phosp and na low - SE meds EARLIER ENTRY: Claims has chronic sinusitis x 2 yrs Did discuss once his infections is over - visit ENT for sinusitis intervention - caused fungal mening in this immunocomp - he understands PLAN: 2 weeks IV antifungal thru PICC then PO Replace mag 2 gms x 1 now Neutro phosp IV now Lytes again and mag betty - replace prn SW consulted - Dw ID Vitals Vitals Vital Signs Date Time Temp Pulse Resp B/P Pulse Ox O2 Delivery O2 Flow Rate FiO2 01/03/17 02:46 98.6 87 18 117/82 98 Room Air 98.6 Physical Exam General: Alert, Oriented X3, Cooperative, mild distress, moderate distress Lungs: Clear Abdomen: Normal bowel sounds, Soft Extremities: No clubbing, No cyanosis, No edema Skin: No significant lesion Labs LABS Laboratory Tests Test 01/02/17 11:30 01/03/17 06:10 White Blood Count 7.1x10^3/uL (4.0-11.0) Red Blood Count 3.59x10^6/uL (4.30-5.70) Hemoglobin 11.2g/dL (13.0-17.5) Hematocrit 32.3% (39.0-53.0) Mean Corpuscular Volume 90fL (79-100) Mean Corpuscular Hemoglobin 31pg (25-35) Mean Corpuscular Hemoglobin Concent 35g/dL (31-37) Red Cell Distribution Width 15.7% (11.5-14.5) Platelet Count 115x10^3/uL (140-400) Neutrophils (%) (Auto) 39% (31-73) Lymphocytes (%) (Auto) 29% (24-48) Monocytes (%) (Auto) 29% (0-9) Eosinophils (%) (Auto) 2% (0-3) Basophils (%) (Auto) 1% (0-3) Neutrophils # (Auto) 2.8x10^3uL (1.8-7.7) Lymphocytes # (Auto) 2.0x10^3/uL (1.0-4.8) Monocytes # (Auto) 2.0x10^3/uL (0.0-1.1) Eosinophils # (Auto) 0.2x10^3/uL (0.0-0.7) Basophils # (Auto) 0.1x10^3/uL (0.0-0.2) Segmented Neutrophils % 54% (35-66) Band Neutrophils % 3% (0-9) Lymphocytes % 16% (24-48) Atypical Lymphocytes % (Manual) 12% (0-0) Monocytes % 14% (0-10) Basophils % 1% (0-3) Platelet Estimate Decreased (ADEQUATE) Sodium Level 128mmol/L (136-145) 127mmol/L (136-145) Potassium Level 3.6mmol/L (3.5-5.1) 4.0mmol/L (3.5-5.1) Chloride Level 95mmol/L (98-107) 95mmol/L (98-107) Carbon Dioxide Level 26mmol/L (21-32) 24mmol/L (21-32) Anion Gap 7 (6-14) 8 (6-14) Blood Urea Nitrogen 13mg/dL (8-26) 16mg/dL (8-26) Creatinine 1.2mg/dL (0.7-1.3) 1.2mg/dL (0.7-1.3) Estimated GFR (Cockcroft-Gault) 65.8 65.8 BUN/Creatinine Ratio 11 (6-20) Glucose Level 100mg/dL (70-99) 102mg/dL (70-99) Calcium Level 8.2mg/dL (8.5-10.1) 8.6mg/dL (8.5-10.1) Phosphorus Level 3.7mg/dL (2.6-4.7) 4.6mg/dL (2.6-4.7) Magnesium Level 1.9mg/dL (1.8-2.4) 1.6mg/dL (1.8-2.4) Total Bilirubin 0.5mg/dL (0.2-1.0) Direct Bilirubin 0.3mg/dL (0.0-0.2) Aspartate Amino Transf (AST/SGOT) 133U/L (15-37) Alanine Aminotransferase (ALT/SGPT) 67U/L (16-63) Alkaline Phosphatase 210U/L (46-116) Total Protein 8.1g/dL (6.4-8.2) Albumin 1.8g/dL (3.4-5.0) Albumin/Globulin Ratio 0.3 (1.0-1.7) Review of Systems Review of Systems no headaches, fevers , n/v/d Assessment and Plan Assessmemt and Plan Problems Medical Problems: (1) Fever Status: Acute (2) Headache Status: Acute (3) Immunocompromised Status: Acute Problems: Comment Review of Relevant I have reviewed the following items garland (where applicable) has been applied. Labs Laboratory Tests Test 01/01/17 10:15 01/02/17 11:30 01/03/17 06:10 CSF Color Colorless CSF Clarity Clear CSF WBC 60 CSF RBC 0 CSF Mononuclear WBCs % 97% CSF Polynuclear WBCs (%) 3% CSF Glucose 13mg/dL (37-70) CSF Total Protein 133.7mg/dL (15.0-45.0) Miscellaneous Test Comment (.) White Blood Count 7.1x10^3/uL (4.0-11.0) Red Blood Count 3.59x10^6/uL (4.30-5.70) Hemoglobin 11.2g/dL (13.0-17.5) Hematocrit 32.3% (39.0-53.0) Mean Corpuscular Volume 90fL (79-100) Mean Corpuscular Hemoglobin 31pg (25-35) Mean Corpuscular Hemoglobin Concent 35g/dL (31-37) Red Cell Distribution Width 15.7% (11.5-14.5) Platelet Count 115x10^3/uL (140-400) Neutrophils (%) (Auto) 39% (31-73) Lymphocytes (%) (Auto) 29% (24-48) Monocytes (%) (Auto) 29% (0-9) Eosinophils (%) (Auto) 2% (0-3) Basophils (%) (Auto) 1% (0-3) Neutrophils # (Auto) 2.8x10^3uL (1.8-7.7) Lymphocytes # (Auto) 2.0x10^3/uL (1.0-4.8) Monocytes # (Auto) 2.0x10^3/uL (0.0-1.1) Eosinophils # (Auto) 0.2x10^3/uL (0.0-0.7) Basophils # (Auto) 0.1x10^3/uL (0.0-0.2) Segmented Neutrophils % 54% (35-66) Band Neutrophils % 3% (0-9) Lymphocytes % 16% (24-48) Atypical Lymphocytes % (Manual) 12% (0-0) Monocytes % 14% (0-10) Basophils % 1% (0-3) Platelet Estimate Decreased (ADEQUATE) Sodium Level 128mmol/L (136-145) 127mmol/L (136-145) Potassium Level 3.6mmol/L (3.5-5.1) 4.0mmol/L (3.5-5.1) Chloride Level 95mmol/L (98-107) 95mmol/L (98-107) Carbon Dioxide Level 26mmol/L (21-32) 24mmol/L (21-32) Anion Gap 7 (6-14) 8 (6-14) Blood Urea Nitrogen 13mg/dL (8-26) 16mg/dL (8-26) Creatinine 1.2mg/dL (0.7-1.3) 1.2mg/dL (0.7-1.3) Estimated GFR (Cockcroft-Gault) 65.8 65.8 BUN/Creatinine Ratio 11 (6-20) Glucose Level 100mg/dL (70-99) 102mg/dL (70-99) Calcium Level 8.2mg/dL (8.5-10.1) 8.6mg/dL (8.5-10.1) Phosphorus Level 3.7mg/dL (2.6-4.7) 4.6mg/dL (2.6-4.7) Magnesium Level 1.9mg/dL (1.8-2.4) 1.6mg/dL (1.8-2.4) Total Bilirubin 0.5mg/dL (0.2-1.0) Direct Bilirubin 0.3mg/dL (0.0-0.2) Aspartate Amino Transf (AST/SGOT) 133U/L (15-37) Alanine Aminotransferase (ALT/SGPT) 67U/L (16-63) Alkaline Phosphatase 210U/L (46-116) Total Protein 8.1g/dL (6.4-8.2) Albumin 1.8g/dL (3.4-5.0) Albumin/Globulin Ratio 0.3 (1.0-1.7) Laboratory Tests Test 01/02/17 11:30 01/03/17 06:10 White Blood Count 7.1x10^3/uL (4.0-11.0) Red Blood Count 3.59x10^6/uL (4.30-5.70) Hemoglobin 11.2g/dL (13.0-17.5) Hematocrit 32.3% (39.0-53.0) Mean Corpuscular Volume 90fL (79-100) Mean Corpuscular Hemoglobin 31pg (25-35) Mean Corpuscular Hemoglobin Concent 35g/dL (31-37) Red Cell Distribution Width 15.7% (11.5-14.5) Platelet Count 115x10^3/uL (140-400) Neutrophils (%) (Auto) 39% (31-73) Lymphocytes (%) (Auto) 29% (24-48) Monocytes (%) (Auto) 29% (0-9) Eosinophils (%) (Auto) 2% (0-3) Basophils (%) (Auto) 1% (0-3) Neutrophils # (Auto) 2.8x10^3uL (1.8-7.7) Lymphocytes # (Auto) 2.0x10^3/uL (1.0-4.8) Monocytes # (Auto) 2.0x10^3/uL (0.0-1.1) Eosinophils # (Auto) 0.2x10^3/uL (0.0-0.7) Basophils # (Auto) 0.1x10^3/uL (0.0-0.2) Segmented Neutrophils % 54% (35-66) Band Neutrophils % 3% (0-9) Lymphocytes % 16% (24-48) Atypical Lymphocytes % (Manual) 12% (0-0) Monocytes % 14% (0-10) Basophils % 1% (0-3) Platelet Estimate Decreased (ADEQUATE) Sodium Level 128mmol/L (136-145) 127mmol/L (136-145) Potassium Level 3.6mmol/L (3.5-5.1) 4.0mmol/L (3.5-5.1) Chloride Level 95mmol/L (98-107) 95mmol/L (98-107) Carbon Dioxide Level 26mmol/L (21-32) 24mmol/L (21-32) Anion Gap 7 (6-14) 8 (6-14) Blood Urea Nitrogen 13mg/dL (8-26) 16mg/dL (8-26) Creatinine 1.2mg/dL (0.7-1.3) 1.2mg/dL (0.7-1.3) Estimated GFR (Cockcroft-Gault) 65.8 65.8 BUN/Creatinine Ratio 11 (6-20) Glucose Level 100mg/dL (70-99) 102mg/dL (70-99) Calcium Level 8.2mg/dL (8.5-10.1) 8.6mg/dL (8.5-10.1) Phosphorus Level 3.7mg/dL (2.6-4.7) 4.6mg/dL (2.6-4.7) Magnesium Level 1.9mg/dL (1.8-2.4) 1.6mg/dL (1.8-2.4) Total Bilirubin 0.5mg/dL (0.2-1.0) Direct Bilirubin 0.3mg/dL (0.0-0.2) Aspartate Amino Transf (AST/SGOT) 133U/L (15-37) Alanine Aminotransferase (ALT/SGPT) 67U/L (16-63) Alkaline Phosphatase 210U/L (46-116) Total Protein 8.1g/dL (6.4-8.2) Albumin 1.8g/dL (3.4-5.0) Albumin/Globulin Ratio 0.3 (1.0-1.7) Microbiology 12/31/16 Blood Culture - Preliminary, Resulted NO GROWTH AFTER 2 DAYS 01/01/17 Anaerobic/Aerobic Culture, Resulted Pending 01/01/17 Anaerobic Culture Result 1 (JACKY), Resulted Pending 01/01/17 Aerobic Culture - Preliminary, Resulted 01/01/17 Aerobic Culture Result 1 (JACKY) - Preliminary, Resulted Medications Current Medications Sodium Chloride (Iv Sodium Chloride 0.9% 1000ml Bag) 1,000 ml @ 1,000 mls/hr 1X ONCE IV Last administered on 12/31/16 22:00; Start 12/31/16 at 22:00; Stop 12/31/16 at 22:59; Status DC Morphine Sulfate 4 mg 1X ONCE IV Last administered on 12/31/16 22:02; Start 12/31/16 at 22:00; Stop 12/31/16 at 22:01; Status DC Lorazepam (Ativan) 2 mg STK-MED ONCE .ROUTE ; Start 12/31/16 at 22:31; Stop at 22:32; Status DC Lorazepam (Ativan) 1 mg 1X STAT IV Last administered on 12/31/16 22:35; Start 12/31/16 at 22:32; Stop 12/31/16 at 22:38; Status DC Acetaminophen (Tylenol) 1,000 mg 1X ONCE PO Last administered on 12/31/16 23: 11; Start 12/31/16 at 23:15; Stop 12/31/16 at 23:16; Status DC Hydromorphone HCl (Dilaudid) 0.5 mg 1X ONCE IV Last administered on 12/31/16 23:11; Start 12/31/16 at 23:15; Stop 12/31/16 at 23:16; Status DC Vancomycin HCl 1 each 1 each PRN DAILY PRN MC SEE COMMENTS Last administered on 01/01/17 02:42; Start 12/31/16 at 23:15; Stop 01/01/17 at 13:28; Status DC Ceftriaxone Sodium 2 gm/ Sodium Chloride 100 ml @ 200 mls/hr 1X ONCE IV Last administered on 12/31/16 23:30; Start 12/31/16 at 23:30; Stop 12/31/16 at 23:59 ; Status DC Vancomycin HCl 2 gm/Sodium Chloride 500 ml @ 250 mls/hr 1X ONCE IV Last administered on 01/01/17 00:00; Start 01/01/17 at 00:00; Stop 01/01/17 at 01:59 ; Status DC Fluconazole/ Sodium Chloride (Diflucan 400mg/ 200ml Premix) 200 ml @ 100 mls/ hr 1X ONCE IV Last administered on 01/01/17 03:12; Start 12/31/16 at 23:30; Stop 01/01/17 at 01:29; Status DC Ondansetron HCl (Zofran) 4 mg PRN Q8HRS PRN IV NAUSEA/VOMITING; Start 01/01/17 at 00:30; Stop 01/02/17 at 00:29; Status DC Morphine Sulfate 4 mg 4 mg PRN Q2HR PRN IV SEVERE PAIN Last administered on 20:44; Start 01/01/17 at 00:30; Stop 01/02/17 at 00:29; Status DC Sodium Chloride (Iv Sodium Chloride 0.9% 1000ml Bag) 1,000 ml @ 100 mls/hr Q10H IV Last administered on 01/01/17 02:07; Start 01/01/17 at 00:28; Stop at 09:20; Status DC Acetaminophen 650 mg 650 mg PRN Q4HRS PRN PO FEVER Last administered on 23:35; Start 01/01/17 at 00:30; Stop 01/02/17 at 00:29; Status DC Vancomycin HCl/ Sodium Chloride (Iv Sodium Chloride 0.9% 500ml Bag) 500 ml @ 250 mls/hr Q8H IV Last administered on 01/01/17 08:13; Start 01/01/17 at 08:00 ; Stop 01/01/17 at 13:28; Status DC Vancomycin HCl 1 each 1X ONCE MC ; Start 01/01/17 at 23:30; Stop 01/01/17 at 23 :30; Status DC Elvitegravir/ Cobicis/Emtricit/ Tenof (Genvoya) 1 tab DAILY PO Last administered on 01/03/17 08:46; Start 01/02/17 at 11:00 Valacyclovir HCl (Valtrex) 1,000 mg BID PO Last administered on 01/03/17 08:46 ; Start 01/01/17 at 21:00 Non-Formulary Medication 1,200 mg WEEKLY PO ; Start 01/08/17 at 09:00; Stop at 09:00; Status DC Non-Formulary Medication 1500 mcg 1,500 mcg DAILY PO ; Start 01/02/17 at 09:00; Status UNV Sodium Chloride (Iv Sodium Chloride 0.9% 1000ml Bag) 1,000 ml @ 150 mls/hr Q6H40M IV ; Start 01/01/17 at 09:05; Stop 01/01/17 at 09:34; Status DC Saliva Substitute 2 spray 2 spray PRN Q15MIN PRN PO DRY MOUTH; Start 01/01/17 at 09:15 Ceftriaxone Sodium 2 gm/ Sodium Chloride 100 ml @ 200 mls/hr Q12HR IV Last administered on 01/02/17 20:33; Start 01/01/17 at 21:00 Ampicillin Sodium 2 gm/Sodium Chloride 100 ml @ 200 mls/hr Q4HRS IV Last administered on 01/01/17 13:09; Start 01/01/17 at 12:00; Stop 01/01/17 at 13:28 ; Status DC Fluconazole/ Sodium Chloride (Diflucan 400mg/ 200ml Premix) 200 ml @ 100 mls/ hr Q24H IV ; Start 01/01/17 at 12:00; Stop 01/01/17 at 13:28; Status DC Trimethoprim/ Sulfamethoxazole (Bactrim Ds) 1 tab DAILY PO Last administered on 01/03/17 08:47; Start 01/01/17 at 09:00 Azithromycin 500 mg 500 mg DAILY PO Last administered on 01/03/17 08:46; Start 01/01/17 at 11:30; Stop 01/03/17 at 08:48; Status DC Amphotericin B/ Dextrose (Ambisome) 500 ml @ 250 mls/hr Q24H IV Last administered on 01/02/17 14:00; Start 01/01/17 at 14:00 Flucytosine (Ancobon) 2,500 mg Q6H PO Last administered on 01/03/17 08:46; Start 01/01/17 at 14:00 Morphine Sulfate 4 mg PRN Q2HR PRN IV PAIN Last administered on 01/02/17 20:32 ; Start 01/02/17 at 08:00 Acetaminophen (Tylenol) 650 mg PRN Q6HRS PRN PO fever or pain Last administered on 01/02/17 19:30; Start 01/02/17 at 08:00 Sodium Chloride (Saline Mist Nasal) 1 fab PRN Q1HR PRN NS NASAL CONGESTION; Start 01/02/17 at 10:45 Diphenhydramine HCl (Benadryl) 25 mg DAILY PO Last administered on 01/02/17 12 :43; Start 01/02/17 at 13:30; Stop 01/02/17 at 19:56; Status DC Acetaminophen (Tylenol) 650 mg DAILY PO Last administered on 01/02/17 12:43; Start 01/02/17 at 13:30; Stop 01/02/17 at 19:55; Status DC Flucytosine (Ancobon) 2,500 mg Q6HRS PO ; Start 01/02/17 at 18:00; Status UNV Acetaminophen (Tylenol) 650 mg Q24H PO ; Start 01/03/17 at 13:30 Diphenhydramine HCl (Benadryl) 25 mg Q24H PO ; Start 01/03/17 at 13:00 Azithromycin 500 mg 500 mg DAILY PO ; Start 01/03/17 at 09:00; Stop 01/03/17 at 13:00 Magnesium Sulfate/ Dextrose 50 ml @ 25 mls/hr 1X ONCE IV ; Start 01/03/17 at 09 :30; Stop 01/03/17 at 11:29 Sodium Phosphate/ Dextrose 256.6667 ml @ 64.167 m... 1X ONCE IV ; Start at 09:30; Stop 01/03/17 at 13:29 Active Scripts Active Reported Valacyclovir (Valacyclovir Hcl) 1,000 Mg Tablet 1,000 Mg PO BID [Azithromycin] 1,200 Mg PO WEEKLY Genvoya Tablet (Elviteg/Aline/Emtric/Tenofo Ala) 1 Each Tablet 1 Each PO DAILY [Iron] 27 Mg PO DAILY [Collagen Support] 1,500 Mcg PO DAILY Vitals/I & O Vital Sign - Last 24 Hours 01/02/17 01/02/17 01/02/17 01/02/17 09:30 11:26 14:23 19:00 Temp 98.7 98.3 99.1 98.7 98.3 99.1 Pulse 93 90 101 Resp 20 B/P 118/76 106/74 127/67 Pulse Ox 97 96 97 O2 Delivery Room Air Room Air Room Air Room Air 01/02/17 01/02/17 01/02/17 01/03/17 20:32 21:13 23:05 02:46 Temp 98.8 98.6 98.8 98.6 Pulse 89 87 Resp 18 B/P 126/79 117/82 Pulse Ox 96 96 96 98 O2 Delivery Room Air Room Air Room Air Room Air Intake and Output 01/02/17 01/02/17 01/03/17 15:00 23:00 07:00 Intake Total 360 ml 3800 ml 600 ml Output Total 2400 ml 1300 ml Balance 360 ml 1400 ml -700 ml MARIE CADET MD Jan 03, 2017 09:16
[2017-01-03] MEDS ORDERED: SODIUM PHOSPHATE 20 MMOL in IV DEXTROSE 5% 250 ML IV ONE (09:30)
[2017-01-03] MEDS ORDERED: MAGNESIUM SULFATE 2GM 50 ML IV ONE (09:30)
--- NOTE | 2017-01-03 10:51 | PDOC ---
PROGRESS NOTES Assessment Problems Medical Problems: (1) Fever Status: Acute (2) Headache Status: Acute (3) Immunocompromised Status: Acute Cryptococcal meningitis HIV infection Headache resolved Plan Continue current antibiotics and care Neurology will follow as needed Subjective no headache Objective Vital Signs Date Time Temp Pulse Resp B/P Pulse Ox O2 Delivery O2 Flow Rate FiO2 01/03/17 07:00 99.3 100 18 117/77 97 Room Air 99.3 Intake and Output 01/03/17 07:00 Intake Total 4760 ml Output Total 3700 ml Balance 1060 ml Intake Oral 4760 ml Output Urine Total 3700 ml # Voids 5 # Bowel Movements 1 PHYSICAL EXAM Alert. Oriented to time, place and person. PERRL. EOMI. CN: no focal findings. Muscle tone: normal. Muscle strength: 5/5 DTR: 2+ Plantar reflex: flexor Gait: not examined in bed. Sensory exam: no abnormal findings. No cerebellar signs elicited. Review of Relevant I have reviewed the following items garland (where applicable) has been applied. Labs Laboratory Tests Test 01/02/17 11:30 01/03/17 06:10 White Blood Count 7.1x10^3/uL (4.0-11.0) Red Blood Count 3.59x10^6/uL (4.30-5.70) Hemoglobin 11.2g/dL (13.0-17.5) Hematocrit 32.3% (39.0-53.0) Mean Corpuscular Volume 90fL (79-100) Mean Corpuscular Hemoglobin 31pg (25-35) Mean Corpuscular Hemoglobin Concent 35g/dL (31-37) Red Cell Distribution Width 15.7% (11.5-14.5) Platelet Count 115x10^3/uL (140-400) Neutrophils (%) (Auto) 39% (31-73) Lymphocytes (%) (Auto) 29% (24-48) Monocytes (%) (Auto) 29% (0-9) Eosinophils (%) (Auto) 2% (0-3) Basophils (%) (Auto) 1% (0-3) Neutrophils # (Auto) 2.8x10^3uL (1.8-7.7) Lymphocytes # (Auto) 2.0x10^3/uL (1.0-4.8) Monocytes # (Auto) 2.0x10^3/uL (0.0-1.1) Eosinophils # (Auto) 0.2x10^3/uL (0.0-0.7) Basophils # (Auto) 0.1x10^3/uL (0.0-0.2) Segmented Neutrophils % 54% (35-66) Band Neutrophils % 3% (0-9) Lymphocytes % 16% (24-48) Atypical Lymphocytes % (Manual) 12% (0-0) Monocytes % 14% (0-10) Basophils % 1% (0-3) Platelet Estimate Decreased (ADEQUATE) Sodium Level 128mmol/L (136-145) 127mmol/L (136-145) Potassium Level 3.6mmol/L (3.5-5.1) 4.0mmol/L (3.5-5.1) Chloride Level 95mmol/L (98-107) 95mmol/L (98-107) Carbon Dioxide Level 26mmol/L (21-32) 24mmol/L (21-32) Anion Gap 7 (6-14) 8 (6-14) Blood Urea Nitrogen 13mg/dL (8-26) 16mg/dL (8-26) Creatinine 1.2mg/dL (0.7-1.3) 1.2mg/dL (0.7-1.3) Estimated GFR (Cockcroft-Gault) 65.8 65.8 BUN/Creatinine Ratio 11 (6-20) Glucose Level 100mg/dL (70-99) 102mg/dL (70-99) Calcium Level 8.2mg/dL (8.5-10.1) 8.6mg/dL (8.5-10.1) Phosphorus Level 3.7mg/dL (2.6-4.7) 4.6mg/dL (2.6-4.7) Magnesium Level 1.9mg/dL (1.8-2.4) 1.6mg/dL (1.8-2.4) Total Bilirubin 0.5mg/dL (0.2-1.0) Direct Bilirubin 0.3mg/dL (0.0-0.2) Aspartate Amino Transf (AST/SGOT) 133U/L (15-37) Alanine Aminotransferase (ALT/SGPT) 67U/L (16-63) Alkaline Phosphatase 210U/L (46-116) Total Protein 8.1g/dL (6.4-8.2) Albumin 1.8g/dL (3.4-5.0) Albumin/Globulin Ratio 0.3 (1.0-1.7) Laboratory Tests Test 01/02/17 11:30 01/03/17 06:10 White Blood Count 7.1x10^3/uL (4.0-11.0) Red Blood Count 3.59x10^6/uL (4.30-5.70) Hemoglobin 11.2g/dL (13.0-17.5) Hematocrit 32.3% (39.0-53.0) Mean Corpuscular Volume 90fL (79-100) Mean Corpuscular Hemoglobin 31pg (25-35) Mean Corpuscular Hemoglobin Concent 35g/dL (31-37) Red Cell Distribution Width 15.7% (11.5-14.5) Platelet Count 115x10^3/uL (140-400) Neutrophils (%) (Auto) 39% (31-73) Lymphocytes (%) (Auto) 29% (24-48) Monocytes (%) (Auto) 29% (0-9) Eosinophils (%) (Auto) 2% (0-3) Basophils (%) (Auto) 1% (0-3) Neutrophils # (Auto) 2.8x10^3uL (1.8-7.7) Lymphocytes # (Auto) 2.0x10^3/uL (1.0-4.8) Monocytes # (Auto) 2.0x10^3/uL (0.0-1.1) Eosinophils # (Auto) 0.2x10^3/uL (0.0-0.7) Basophils # (Auto) 0.1x10^3/uL (0.0-0.2) Segmented Neutrophils % 54% (35-66) Band Neutrophils % 3% (0-9) Lymphocytes % 16% (24-48) Atypical Lymphocytes % (Manual) 12% (0-0) Monocytes % 14% (0-10) Basophils % 1% (0-3) Platelet Estimate Decreased (ADEQUATE) Sodium Level 128mmol/L (136-145) 127mmol/L (136-145) Potassium Level 3.6mmol/L (3.5-5.1) 4.0mmol/L (3.5-5.1) Chloride Level 95mmol/L (98-107) 95mmol/L (98-107) Carbon Dioxide Level 26mmol/L (21-32) 24mmol/L (21-32) Anion Gap 7 (6-14) 8 (6-14) Blood Urea Nitrogen 13mg/dL (8-26) 16mg/dL (8-26) Creatinine 1.2mg/dL (0.7-1.3) 1.2mg/dL (0.7-1.3) Estimated GFR (Cockcroft-Gault) 65.8 65.8 BUN/Creatinine Ratio 11 (6-20) Glucose Level 100mg/dL (70-99) 102mg/dL (70-99) Calcium Level 8.2mg/dL (8.5-10.1) 8.6mg/dL (8.5-10.1) Phosphorus Level 3.7mg/dL (2.6-4.7) 4.6mg/dL (2.6-4.7) Magnesium Level 1.9mg/dL (1.8-2.4) 1.6mg/dL (1.8-2.4) Total Bilirubin 0.5mg/dL (0.2-1.0) Direct Bilirubin 0.3mg/dL (0.0-0.2) Aspartate Amino Transf (AST/SGOT) 133U/L (15-37) Alanine Aminotransferase (ALT/SGPT) 67U/L (16-63) Alkaline Phosphatase 210U/L (46-116) Total Protein 8.1g/dL (6.4-8.2) Albumin 1.8g/dL (3.4-5.0) Albumin/Globulin Ratio 0.3 (1.0-1.7) Microbiology 12/31/16 Blood Culture - Preliminary, Resulted NO GROWTH AFTER 2 DAYS 01/01/17 Anaerobic/Aerobic Culture, Resulted Pending 01/01/17 Anaerobic Culture Result 1 (JACKY), Resulted Pending 01/01/17 Aerobic Culture - Preliminary, Resulted 01/01/17 Aerobic Culture Result 1 (JACKY) - Preliminary, Resulted Medications Current Medications Sodium Chloride (Iv Sodium Chloride 0.9% 1000ml Bag) 1,000 ml @ 1,000 mls/hr 1X ONCE IV Last administered on 12/31/16 22:00; Start 12/31/16 at 22:00; Stop 12/31/16 at 22:59; Status DC Morphine Sulfate 4 mg 1X ONCE IV Last administered on 12/31/16 22:02; Start 12/31/16 at 22:00; Stop 12/31/16 at 22:01; Status DC Lorazepam (Ativan) 2 mg STK-MED ONCE .ROUTE ; Start 12/31/16 at 22:31; Stop at 22:32; Status DC Lorazepam (Ativan) 1 mg 1X STAT IV Last administered on 12/31/16 22:35; Start 12/31/16 at 22:32; Stop 12/31/16 at 22:38; Status DC Acetaminophen (Tylenol) 1,000 mg 1X ONCE PO Last administered on 12/31/16 23: 11; Start 12/31/16 at 23:15; Stop 12/31/16 at 23:16; Status DC Hydromorphone HCl (Dilaudid) 0.5 mg 1X ONCE IV Last administered on 12/31/16 23:11; Start 12/31/16 at 23:15; Stop 12/31/16 at 23:16; Status DC Vancomycin HCl 1 each 1 each PRN DAILY PRN MC SEE COMMENTS Last administered on 01/01/17 02:42; Start 12/31/16 at 23:15; Stop 01/01/17 at 13:28; Status DC Ceftriaxone Sodium 2 gm/ Sodium Chloride 100 ml @ 200 mls/hr 1X ONCE IV Last administered on 12/31/16 23:30; Start 12/31/16 at 23:30; Stop 12/31/16 at 23:59 ; Status DC Vancomycin HCl 2 gm/Sodium Chloride 500 ml @ 250 mls/hr 1X ONCE IV Last administered on 01/01/17 00:00; Start 01/01/17 at 00:00; Stop 01/01/17 at 01:59 ; Status DC Fluconazole/ Sodium Chloride (Diflucan 400mg/ 200ml Premix) 200 ml @ 100 mls/ hr 1X ONCE IV Last administered on 01/01/17 03:12; Start 12/31/16 at 23:30; Stop 01/01/17 at 01:29; Status DC Ondansetron HCl (Zofran) 4 mg PRN Q8HRS PRN IV NAUSEA/VOMITING; Start 01/01/17 at 00:30; Stop 01/02/17 at 00:29; Status DC Morphine Sulfate 4 mg 4 mg PRN Q2HR PRN IV SEVERE PAIN Last administered on 20:44; Start 01/01/17 at 00:30; Stop 01/02/17 at 00:29; Status DC Sodium Chloride (Iv Sodium Chloride 0.9% 1000ml Bag) 1,000 ml @ 100 mls/hr Q10H IV Last administered on 01/01/17 02:07; Start 01/01/17 at 00:28; Stop at 09:20; Status DC Acetaminophen 650 mg 650 mg PRN Q4HRS PRN PO FEVER Last administered on 23:35; Start 01/01/17 at 00:30; Stop 01/02/17 at 00:29; Status DC Vancomycin HCl/ Sodium Chloride (Iv Sodium Chloride 0.9% 500ml Bag) 500 ml @ 250 mls/hr Q8H IV Last administered on 01/01/17 08:13; Start 01/01/17 at 08:00 ; Stop 01/01/17 at 13:28; Status DC Vancomycin HCl 1 each 1X ONCE MC ; Start 01/01/17 at 23:30; Stop 01/01/17 at 23 :30; Status DC Elvitegravir/ Cobicis/Emtricit/ Tenof (Genvoya) 1 tab DAILY PO Last administered on 01/03/17 08:46; Start 01/02/17 at 11:00 Valacyclovir HCl (Valtrex) 1,000 mg BID PO Last administered on 01/03/17 08:46 ; Start 01/01/17 at 21:00 Non-Formulary Medication 1,200 mg WEEKLY PO ; Start 01/08/17 at 09:00; Stop at 09:00; Status DC Non-Formulary Medication 1500 mcg 1,500 mcg DAILY PO ; Start 01/02/17 at 09:00; Status UNV Sodium Chloride (Iv Sodium Chloride 0.9% 1000ml Bag) 1,000 ml @ 150 mls/hr Q6H40M IV ; Start 01/01/17 at 09:05; Stop 01/01/17 at 09:34; Status DC Saliva Substitute 2 spray 2 spray PRN Q15MIN PRN PO DRY MOUTH; Start 01/01/17 at 09:15 Ceftriaxone Sodium 2 gm/ Sodium Chloride 100 ml @ 200 mls/hr Q12HR IV Last administered on 01/03/17 09:30; Start 01/01/17 at 21:00 Ampicillin Sodium 2 gm/Sodium Chloride 100 ml @ 200 mls/hr Q4HRS IV Last administered on 01/01/17 13:09; Start 01/01/17 at 12:00; Stop 01/01/17 at 13:28 ; Status DC Fluconazole/ Sodium Chloride (Diflucan 400mg/ 200ml Premix) 200 ml @ 100 mls/ hr Q24H IV ; Start 01/01/17 at 12:00; Stop 01/01/17 at 13:28; Status DC Trimethoprim/ Sulfamethoxazole (Bactrim Ds) 1 tab DAILY PO Last administered on 01/03/17 08:47; Start 01/01/17 at 09:00 Azithromycin 500 mg 500 mg DAILY PO Last administered on 01/03/17 08:46; Start 01/01/17 at 11:30; Stop 01/03/17 at 08:48; Status DC Amphotericin B/ Dextrose (Ambisome) 500 ml @ 250 mls/hr Q24H IV Last administered on 01/02/17 14:00; Start 01/01/17 at 14:00 Flucytosine (Ancobon) 2,500 mg Q6H PO Last administered on 01/03/17 08:46; Start 01/01/17 at 14:00 Morphine Sulfate 4 mg PRN Q2HR PRN IV PAIN Last administered on 01/02/17 20:32 ; Start 01/02/17 at 08:00 Acetaminophen (Tylenol) 650 mg PRN Q6HRS PRN PO fever or pain Last administered on 01/02/17 19:30; Start 01/02/17 at 08:00 Sodium Chloride (Saline Mist Nasal) 1 fab PRN Q1HR PRN NS NASAL CONGESTION; Start 01/02/17 at 10:45 Diphenhydramine HCl (Benadryl) 25 mg DAILY PO Last administered on 01/02/17 12 :43; Start 01/02/17 at 13:30; Stop 01/02/17 at 19:56; Status DC Acetaminophen (Tylenol) 650 mg DAILY PO Last administered on 01/02/17 12:43; Start 01/02/17 at 13:30; Stop 01/02/17 at 19:55; Status DC Flucytosine (Ancobon) 2,500 mg Q6HRS PO ; Start 01/02/17 at 18:00; Status UNV Acetaminophen (Tylenol) 650 mg Q24H PO ; Start 01/03/17 at 13:30 Diphenhydramine HCl (Benadryl) 25 mg Q24H PO ; Start 01/03/17 at 13:00 Azithromycin 500 mg 500 mg DAILY PO Last administered on 01/03/17 09:00; Start 01/03/17 at 09:00; Stop 01/03/17 at 13:00 Magnesium Sulfate/ Dextrose 50 ml @ 25 mls/hr 1X ONCE IV Last administered on 01/03/17 10:47; Start 01/03/17 at 09:30; Stop 01/03/17 at 11:29 Sodium Phosphate/ Dextrose 256.6667 ml @ 64.167 m... 1X ONCE IV Last administered on 01/03/17 10:47; Start 01/03/17 at 09:30; Stop 01/03/17 at 13:29 Active Scripts Active Reported Valacyclovir (Valacyclovir Hcl) 1,000 Mg Tablet 1,000 Mg PO BID [Azithromycin] 1,200 Mg PO WEEKLY Genvoya Tablet (Elviteg/Aline/Emtric/Tenofo Ala) 1 Each Tablet 1 Each PO DAILY [Iron] 27 Mg PO DAILY [Collagen Support] 1,500 Mcg PO DAILY Vitals/I & O Vital Sign - Last 24 Hours 01/02/17 01/02/17 01/02/17 01/02/17 11:26 14:23 19:00 20:32 Temp 98.7 98.3 99.1 98.7 98.3 99.1 Pulse 93 90 101 Resp 16 14 20 16 B/P 118/76 106/74 127/67 Pulse Ox 97 96 97 96 O2 Delivery Room Air Room Air Room Air Room Air 01/02/17 01/02/17 01/03/1721/17 21:13 23:05 02:46 07:00 Temp 98.8 98.6 99.3 98.8 98.6 99.3 Pulse 89 87 100 Resp B/P 126/79 117/82 117/77 Pulse Ox 96 96 98 97 O2 Delivery Room Air Room Air Room Air Room Air Intake and Output 01/02/17 01/02/17 01/03/17 15:00 23:00 07:00 Intake Total 360 ml 3800 ml 600 ml Output Total 2400 ml 1300 ml Balance 360 ml 1400 ml -700 ml ITZEL CONTEH MD Jan 03, 2017 10:51
[2017-01-03 11:05] VITALS: BP 110/70
[2017-01-03] MEDS: diphenhydrAMINE HCL 25 MG CAPSULE PO SCH (13:31)
[2017-01-03] MEDS: ACETAMINOPHEN 325 MG TABLET. PO SCH (13:31)
[2017-01-03] MEDS: DEXTROSE 5% IV SCH (14:36)
[2017-01-03] MEDS: AMPHOTERICIN B LIPOSOME IV SCH (14:36)
[2017-01-03 14:52] VITALS: BP 100/57
[2017-01-03 15:30] LABS: NEGATIVE OBC MYCO NEG; POSITIVE OBC MYCO POS
[2017-01-03 19:00] VITALS: BP 112/64
[2017-01-03 20:10] LABS: HERPES SIMPLEX TYPE 1 Negative (Negative); HERPES SIMPLEX TYPE 2 Negative (Negative)
[2017-01-03 23:20] VITALS: BP 121/77
[2017-01-04] MEDS: FLUCYTOSINE 500 MG PO SCH ×4 (02:02→20:52)
[2017-01-04] MEDS: MORPHINE SULFATE 4 MG/ML DISP.SYRIN. IV PRN ×2 (02:03→14:23)
[2017-01-04 03:54] VITALS: BP 115/66
[2017-01-04 06:53] LABS: CALCIUM 8.6 mg/dL (8.5-10.1); CREATININE 1.2 mg/dL (0.7-1.3); GFR 65.8; MAGNESIUM 1.6 mg/dL (1.8-2.4); PHOSPHORUS 4.3 mg/dL (2.6-4.7); POTASSIUM 3.6 mmol/L (3.5-5.1)
[2017-01-04 07:00] VITALS: BP 110/61
--- NOTE | 2017-01-04 09:03 | PDOC ---
PROGRESS NOTES Chief Complaint Chief Complaint 1. 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 AIDS On Genvoya/Bactrim/Weekly Azithromycin 3. Fever ? related to infection vs Ambisome now H/o Hep B H/o Herpes oralis SIRS POA, infectious, no organ dysfcn THrombocytopenia, stable ELevated LFTS Hyponatremia CHronci sinusitis History of Present Illness History of Present Illness Doing well But NA remains 128 MAg remains 1.6 despite IV replacement yesterday NO fevers NO white ct HAs a R PICC Planned for 2 weeks anti fungal then shift to PO Dw ID Pt concerned about losing his job - wishes to talk to SW Pt has no prob doing outpt IV infusion Mag and phosp and na low - SE meds EARLIER ENTRY: Claims has chronic sinusitis x 2 yrs Did discuss once his infections is over - visit ENT for sinusitis intervention - caused fungal mening in this immunocomp - he understands PLAN: 2 weeks IV antifungal thru PICC then PO Replace mag 4 gms x thsi time Sytrt NS 125cc/hr - address hyponat Lytes again and mag betty - replace prn SW consulted - Dw ID Vitals Vitals Vital Signs Date Time Temp Pulse Resp B/P Pulse Ox O2 Delivery O2 Flow Rate FiO2 01/04/17 07:00 98.1 62 16 110/61 96 Room Air 98.1 Physical Exam General: Alert, Oriented X3, Cooperative, mild distress, moderate distress Lungs: Clear Abdomen: Normal bowel sounds, Soft Extremities: No clubbing, No cyanosis, No edema Skin: No significant lesion Labs LABS Laboratory Tests Test 01/04/17 06:24 Sodium Level 128mmol/L (136-145) Potassium Level 3.6mmol/L (3.5-5.1) Chloride Level 96mmol/L (98-107) Carbon Dioxide Level 24mmol/L (21-32) Anion Gap 8 (6-14) Blood Urea Nitrogen 18mg/dL (8-26) Creatinine 1.2mg/dL (0.7-1.3) Estimated GFR (Cockcroft-Gault) 65.8 Glucose Level 104mg/dL (70-99) Calcium Level 8.6mg/dL (8.5-10.1) Phosphorus Level 4.3mg/dL (2.6-4.7) Magnesium Level 1.6mg/dL (1.8-2.4) Review of Systems Review of Systems no headaches, fevers, cp, soa, n,v,d Assessment and Plan Assessmemt and Plan Problems Medical Problems: (1) Fever Status: Acute (2) Headache Status: Acute (3) Immunocompromised Status: Acute Problems: Comment Review of Relevant I have reviewed the following items garland (where applicable) has been applied. Labs Laboratory Tests Test 01/02/17 11:30 01/03/17 06:10 01/04/17 06:24 White Blood Count 7.1x10^3/uL (4.0-11.0) Red Blood Count 3.59x10^6/uL (4.30-5.70) Hemoglobin 11.2g/dL (13.0-17.5) Hematocrit 32.3% (39.0-53.0) Mean Corpuscular Volume 90fL (79-100) Mean Corpuscular Hemoglobin 31pg (25-35) Mean Corpuscular Hemoglobin Concent 35g/dL (31-37) Red Cell Distribution Width 15.7% (11.5-14.5) Platelet Count 115x10^3/uL (140-400) Neutrophils (%) (Auto) 39% (31-73) Lymphocytes (%) (Auto) 29% (24-48) Monocytes (%) (Auto) 29% (0-9) Eosinophils (%) (Auto) 2% (0-3) Basophils (%) (Auto) 1% (0-3) Neutrophils # (Auto) 2.8x10^3uL (1.8-7.7) Lymphocytes # (Auto) 2.0x10^3/uL (1.0-4.8) Monocytes # (Auto) 2.0x10^3/uL (0.0-1.1) Eosinophils # (Auto) 0.2x10^3/uL (0.0-0.7) Basophils # (Auto) 0.1x10^3/uL (0.0-0.2) Segmented Neutrophils % 54% (35-66) Band Neutrophils % 3% (0-9) Lymphocytes % 16% (24-48) Atypical Lymphocytes % (Manual) 12% (0-0) Monocytes % 14% (0-10) Basophils % 1% (0-3) Platelet Estimate Decreased (ADEQUATE) Sodium Level 128mmol/L (136-145) 127mmol/L (136-145) 128mmol/L (136-145) Potassium Level 3.6mmol/L (3.5-5.1) 4.0mmol/L (3.5-5.1) 3.6mmol/L (3.5-5.1) Chloride Level 95mmol/L (98-107) 95mmol/L (98-107) 96mmol/L (98-107) Carbon Dioxide Level 26mmol/L (21-32) 24mmol/L (21-32) 24mmol/L (21-32) Anion Gap 7 (6-14) 8 (6-14) 8 (6-14) Blood Urea Nitrogen 13mg/dL (8-26) 16mg/dL (8-26) 18mg/dL (8-26) Creatinine 1.2mg/dL (0.7-1.3) 1.2mg/dL (0.7-1.3) 1.2mg/dL (0.7-1.3) Estimated GFR (Cockcroft-Gault) 65.8 65.8 65.8 BUN/Creatinine Ratio 11 (6-20) Glucose Level 100mg/dL (70-99) 102mg/dL (70-99) 104mg/dL (70-99) Calcium Level 8.2mg/dL (8.5-10.1) 8.6mg/dL (8.5-10.1) 8.6mg/dL (8.5-10.1) Phosphorus Level 3.7mg/dL (2.6-4.7) 4.6mg/dL (2.6-4.7) 4.3mg/dL (2.6-4.7) Magnesium Level 1.9mg/dL (1.8-2.4) 1.6mg/dL (1.8-2.4) 1.6mg/dL (1.8-2.4) Total Bilirubin 0.5mg/dL (0.2-1.0) Direct Bilirubin 0.3mg/dL (0.0-0.2) Aspartate Amino Transf (AST/SGOT) 133U/L (15-37) Alanine Aminotransferase (ALT/SGPT) 67U/L (16-63) Alkaline Phosphatase 210U/L (46-116) Total Protein 8.1g/dL (6.4-8.2) Albumin 1.8g/dL (3.4-5.0) Albumin/Globulin Ratio 0.3 (1.0-1.7) Cytomegalovirus IgG Antibody >10.00U/mL (0.00-0.59) Cytomegalovirus IgM Antibody <30.0AU/mL (0.0-29.9) Mycoplasma Serology (LAB) Negative (NEGATIVE) Laboratory Tests Test 01/04/17 06:24 Sodium Level 128mmol/L (136-145) Potassium Level 3.6mmol/L (3.5-5.1) Chloride Level 96mmol/L (98-107) Carbon Dioxide Level 24mmol/L (21-32) Anion Gap 8 (6-14) Blood Urea Nitrogen 18mg/dL (8-26) Creatinine 1.2mg/dL (0.7-1.3) Estimated GFR (Cockcroft-Gault) 65.8 Glucose Level 104mg/dL (70-99) Calcium Level 8.6mg/dL (8.5-10.1) Phosphorus Level 4.3mg/dL (2.6-4.7) Magnesium Level 1.6mg/dL (1.8-2.4) Microbiology 12/31/16 Blood Culture - Preliminary, Resulted NO GROWTH AFTER 3 DAYS 01/01/17 AFB Specimen Processing Tissue - Final, Resulted 01/01/17 Acid Fast Bacilli Culture, Resulted Pending 01/01/17 Gram Stain - Final, Resulted Medications Current Medications Sodium Chloride (Iv Sodium Chloride 0.9% 1000ml Bag) 1,000 ml @ 1,000 mls/hr 1X ONCE IV Last administered on 12/31/16 22:00; Start 12/31/16 at 22:00; Stop 12/31/16 at 22:59; Status DC Morphine Sulfate 4 mg 1X ONCE IV Last administered on 12/31/16t 22:02; Start 12/31/16 at 22:00; Stop 12/31/16 at 22:01; Status DC Lorazepam (Ativan) 2 mg STK-MED ONCE .ROUTE ; Start 12/31/16 at 22:31; Stop at 22:32; Status DC Lorazepam (Ativan) 1 mg 1X STAT IV Last administered on 12/31/16 22:35; Start 12/31/16 at 22:32; Stop 12/31/16 at 22:38; Status DC Acetaminophen (Tylenol) 1,000 mg 1X ONCE PO Last administered on 12/31/16 23: 11; Start 12/31/16 at 23:15; Stop 12/31/16 at 23:16; Status DC Hydromorphone HCl (Dilaudid) 0.5 mg 1X ONCE IV Last administered on 12/31/16 23:11; Start 12/31/16 at 23:15; Stop 12/31/16 at 23:16; Status DC Vancomycin HCl 1 each 1 each PRN DAILY PRN MC SEE COMMENTS Last administered on 01/01/17 02:42; Start 12/31/16 at 23:15; Stop 01/01/17 at 13:28; Status DC Ceftriaxone Sodium 2 gm/ Sodium Chloride 100 ml @ 200 mls/hr 1X ONCE IV Last administered on 12/31/16 23:30; Start 12/31/16 at 23:30; Stop 12/31/16 at 23:59 ; Status DC Vancomycin HCl 2 gm/Sodium Chloride 500 ml @ 250 mls/hr 1X ONCE IV Last administered on 01/01/17 00:00; Start 01/01/17 at 00:00; Stop 01/01/17 at 01:59 ; Status DC Fluconazole/ Sodium Chloride (Diflucan 400mg/ 200ml Premix) 200 ml @ 100 mls/ hr 1X ONCE IV Last administered on 01/01/17 03:12; Start 12/31/16 at 23:30; Stop 01/01/17 at 01:29; Status DC Ondansetron HCl (Zofran) 4 mg PRN Q8HRS PRN IV NAUSEA/VOMITING; Start 01/01/17 at 00:30; Stop 01/02/17 at 00:29; Status DC Morphine Sulfate 4 mg 4 mg PRN Q2HR PRN IV SEVERE PAIN Last administered on 20:44; Start 01/01/17 at 00:30; Stop 01/02/17 at 00:29; Status DC Sodium Chloride (Iv Sodium Chloride 0.9% 1000ml Bag) 1,000 ml @ 100 mls/hr Q10H IV Last administered on 01/01/17 02:07; Start 01/01/17 at 00:28; Stop at 09:20; Status DC Acetaminophen 650 mg 650 mg PRN Q4HRS PRN PO FEVER Last administered on 23:35; Start 01/01/17 at 00:30; Stop 01/02/17 at 00:29; Status DC Vancomycin HCl/ Sodium Chloride (Iv Sodium Chloride 0.9% 500ml Bag) 500 ml @ 250 mls/hr Q8H IV Last administered on 01/01/17 08:13; Start 01/01/17 at 08:00 ; Stop 01/01/17 at 13:28; Status DC Vancomycin HCl 1 each 1X ONCE MC ; Start 01/01/17 at 23:30; Stop 01/01/17 at 23 :30; Status DC Elvitegravir/ Cobicis/Emtricit/ Tenof (Genvoya) 1 tab DAILY PO Last administered on 01/03/17 08:46; Start 01/02/17 at 11:00 Valacyclovir HCl (Valtrex) 1,000 mg BID PO Last administered on 01/03/17 21:49 ; Start 01/01/17 at 21:00 Non-Formulary Medication 1,200 mg WEEKLY PO ; Start 01/08/17 at 09:00; Stop at 09:00; Status DC Non-Formulary Medication 1500 mcg 1,500 mcg DAILY PO ; Start 01/02/17 at 09:00; Status UNV Sodium Chloride (Iv Sodium Chloride 0.9% 1000ml Bag) 1,000 ml @ 150 mls/hr Q6H40M IV ; Start 01/01/17 at 09:05; Stop 01/01/17 at 09:34; Status DC Saliva Substitute 2 spray 2 spray PRN Q15MIN PRN PO DRY MOUTH; Start 01/01/17 at 09:15 Ceftriaxone Sodium 2 gm/ Sodium Chloride 100 ml @ 200 mls/hr Q12HR IV Last administered on 01/03/17 21:51; Start 01/01/17 at 21:00 Ampicillin Sodium 2 gm/Sodium Chloride 100 ml @ 200 mls/hr Q4HRS IV Last administered on 01/01/17 13:09; Start 01/01/17 at 12:00; Stop 01/01/17 at 13:28 ; Status DC Fluconazole/ Sodium Chloride (Diflucan 400mg/ 200ml Premix) 200 ml @ 100 mls/ hr Q24H IV ; Start 01/01/17 at 12:00; Stop 01/01/17 at 13:28; Status DC Trimethoprim/ Sulfamethoxazole (Bactrim Ds) 1 tab DAILY PO Last administered on 01/03/17 08:47; Start 01/01/17 at 09:00 Azithromycin 500 mg 500 mg DAILY PO Last administered on 01/03/17 08:46; Start 01/01/17 at 11:30; Stop 01/03/17 at 08:48; Status DC Amphotericin B/ Dextrose (Ambisome) 500 ml @ 250 mls/hr Q24H IV Last administered on 01/03/17 14:36; Start 01/01/17 at 14:00 Flucytosine (Ancobon) 2,500 mg Q6H PO Last administered on 01/04/17 02:02; Start 01/01/17 at 14:00 Morphine Sulfate 4 mg PRN Q2HR PRN IV PAIN Last administered on 01/04/17 02:03 ; Start 01/02/17 at 08:00 Acetaminophen (Tylenol) 650 mg PRN Q6HRS PRN PO fever or pain Last administered on 01/02/17 19:30; Start 01/02/17 at 08:00 Sodium Chloride (Saline Mist Nasal) 1 fab PRN Q1HR PRN NS NASAL CONGESTION; Start 01/02/17 at 10:45 Diphenhydramine HCl (Benadryl) 25 mg DAILY PO Last administered on 01/02/17 12 :43; Start 01/02/17 at 13:30; Stop 01/02/17 at 19:56; Status DC Acetaminophen (Tylenol) 650 mg DAILY PO Last administered on 01/02/17 12:43; Start 01/02/17 at 13:30; Stop 01/02/17 at 19:55; Status DC Flucytosine (Ancobon) 2,500 mg Q6HRS PO ; Start 01/02/17 at 18:00; Status UNV Acetaminophen (Tylenol) 650 mg Q24H PO Last administered on 01/03/17 13:31; Start 01/03/17 at 13:30 Diphenhydramine HCl (Benadryl) 25 mg Q24H PO Last administered on 01/03/17 13: 31; Start 01/03/17 at 13:00 Azithromycin 500 mg 500 mg DAILY PO Last administered on 01/03/17 09:00; Start 01/03/17 at 09:00; Stop 01/03/17 at 13:00; Status DC Magnesium Sulfate/ Dextrose 50 ml @ 25 mls/hr 1X ONCE IV Last administered on 01/03/17 10:47; Start 01/03/17 at 09:30; Stop 01/03/17 at 11:29; Status DC Sodium Phosphate/ Dextrose 256.6667 ml @ 64.167 m... 1X ONCE IV Last administered on 01/03/17 10:47; Start 01/03/17 at 09:30; Stop 01/03/17 at 13:29 ; Status DC Active Scripts Active Reported Valacyclovir (Valacyclovir Hcl) 1,000 Mg Tablet 1,000 Mg PO BID [Azithromycin] 1,200 Mg PO WEEKLY Genvoya Tablet (Elviteg/Aline/Emtric/Tenofo Ala) 1 Each Tablet 1 Each PO DAILY [Iron] 27 Mg PO DAILY [Collagen Support] 1,500 Mcg PO DAILY Vitals/I & O Vital Sign - Last 24 Hours 01/03/17 01/03/17 01/03/17 01/03/17 11:05 14:52 19:00 20:25 Temp 98.8 97.6 98.3 98.8 97.6 98.3 Pulse 94 85 87 Resp 20 B/P 110/70 100/57 112/64 Pulse Ox 94 93 96 O2 Delivery Room Air Room Air Room Air Room Air 01/03/17 01/04/17 01/04/17 01/04/17 23:20 02:03 02:46 03:54 Temp 99.4 98.3 99.4 98.3 Pulse 85 90 Resp 20 18 18 18 B/P 121/77 115/66 Pulse Ox 99 99 99 96 O2 Delivery Room Air Room Air Room Air Room Air 01/04/17 07:00 Temp 98.1 98.1 Pulse 62 Resp 16 B/P 110/61 Pulse Ox 96 O2 Delivery Room Air Intake and Output 01/03/17 01/03/17 01/04/17 14:59 22:59 06:59 Intake Total 240 ml 280 ml Output Total 750 ml 1600 ml Balance -510 ml 280 ml -1600 ml MARIE CADET MD Jan 04, 2017 09:03
--- NOTE | 2017-01-04 09:21 | PDOC ---
PULMONARY PROGRESS NOTES Subjective much better Vitals Vital Signs Date Time Temp Pulse Resp B/P Pulse Ox O2 Delivery O2 Flow Rate FiO2 01/04/17 07:00 98.1 62 16 110/61 96 Room Air 98.1 General: Alert, No acute distress Lungs: Clear Abdomen: Soft Neuro Exam: Alert Extremities: No Edema Skin: Warm Labs Laboratory Tests Test 01/02/17 11:30 01/03/17 06:10 01/04/17 06:24 White Blood Count 7.1x10^3/uL (4.0-11.0) Red Blood Count 3.59x10^6/uL (4.30-5.70) Hemoglobin 11.2g/dL (13.0-17.5) Hematocrit 32.3% (39.0-53.0) Mean Corpuscular Volume 90fL (79-100) Mean Corpuscular Hemoglobin 31pg (25-35) Mean Corpuscular Hemoglobin Concent 35g/dL (31-37) Red Cell Distribution Width 15.7% (11.5-14.5) Platelet Count 115x10^3/uL (140-400) Neutrophils (%) (Auto) 39% (31-73) Lymphocytes (%) (Auto) 29% (24-48) Monocytes (%) (Auto) 29% (0-9) Eosinophils (%) (Auto) 2% (0-3) Basophils (%) (Auto) 1% (0-3) Neutrophils # (Auto) 2.8x10^3uL (1.8-7.7) Lymphocytes # (Auto) 2.0x10^3/uL (1.0-4.8) Monocytes # (Auto) 2.0x10^3/uL (0.0-1.1) Eosinophils # (Auto) 0.2x10^3/uL (0.0-0.7) Basophils # (Auto) 0.1x10^3/uL (0.0-0.2) Segmented Neutrophils % 54% (35-66) Band Neutrophils % 3% (0-9) Lymphocytes % 16% (24-48) Atypical Lymphocytes % (Manual) 12% (0-0) Monocytes % 14% (0-10) Basophils % 1% (0-3) Platelet Estimate Decreased (ADEQUATE) Sodium Level 128mmol/L (136-145) 127mmol/L (136-145) 128mmol/L (136-145) Potassium Level 3.6mmol/L (3.5-5.1) 4.0mmol/L (3.5-5.1) 3.6mmol/L (3.5-5.1) Chloride Level 95mmol/L (98-107) 95mmol/L (98-107) 96mmol/L (98-107) Carbon Dioxide Level 26mmol/L (21-32) 24mmol/L (21-32) 24mmol/L (21-32) Anion Gap 7 (6-14) 8 (6-14) 8 (6-14) Blood Urea Nitrogen 13mg/dL (8-26) 16mg/dL (8-26) 18mg/dL (8-26) Creatinine 1.2mg/dL (0.7-1.3) 1.2mg/dL (0.7-1.3) 1.2mg/dL (0.7-1.3) Estimated GFR (Cockcroft-Gault) 65.8 65.8 65.8 BUN/Creatinine Ratio 11 (6-20) Glucose Level 100mg/dL (70-99) 102mg/dL (70-99) 104mg/dL (70-99) Calcium Level 8.2mg/dL (8.5-10.1) 8.6mg/dL (8.5-10.1) 8.6mg/dL (8.5-10.1) Phosphorus Level 3.7mg/dL (2.6-4.7) 4.6mg/dL (2.6-4.7) 4.3mg/dL (2.6-4.7) Magnesium Level 1.9mg/dL (1.8-2.4) 1.6mg/dL (1.8-2.4) 1.6mg/dL (1.8-2.4) Total Bilirubin 0.5mg/dL (0.2-1.0) Direct Bilirubin 0.3mg/dL (0.0-0.2) Aspartate Amino Transf (AST/SGOT) 133U/L (15-37) Alanine Aminotransferase (ALT/SGPT) 67U/L (16-63) Alkaline Phosphatase 210U/L (46-116) Total Protein 8.1g/dL (6.4-8.2) Albumin 1.8g/dL (3.4-5.0) Albumin/Globulin Ratio 0.3 (1.0-1.7) Cytomegalovirus IgG Antibody >10.00U/mL (0.00-0.59) Cytomegalovirus IgM Antibody <30.0AU/mL (0.0-29.9) Mycoplasma Serology (LAB) Negative (NEGATIVE) Laboratory Tests Test 01/04/17 06:24 Sodium Level 128mmol/L (136-145) Potassium Level 3.6mmol/L (3.5-5.1) Chloride Level 96mmol/L (98-107) Carbon Dioxide Level 24mmol/L (21-32) Anion Gap 8 (6-14) Blood Urea Nitrogen 18mg/dL (8-26) Creatinine 1.2mg/dL (0.7-1.3) Estimated GFR (Cockcroft-Gault) 65.8 Glucose Level 104mg/dL (70-99) Calcium Level 8.6mg/dL (8.5-10.1) Phosphorus Level 4.3mg/dL (2.6-4.7) Magnesium Level 1.6mg/dL (1.8-2.4) Medications Active Scripts Medications Dose Route/Sig Days Date Category Valacyclovir (Valacyclovir Hcl) 1,000 Mg Tablet 1,000 Mg PO BID 01/01/17 Reported [Azithromycin] 1,200 Mg PO WEEKLY 01/01/17 Reported Genvoya Tablet (Elviteg/Aline/Emtric/Tenofo Ala) 1 Each Tablet 1 Each PO DAILY 01/01/17 Reported [Iron] 27 Mg PO DAILY 01/01/17 Reported [Collagen Support] 1,500 Mcg PO DAILY 01/01/17 Reported Impression . 1. Abnormal chest x-ray with diffuse tiny micro nodules in a patient, who has acquired immune deficiency syndrome and has a CD4 count of 56. Now presented with severe headache, high grade fever. The differential diagnoses would include: a). Cryptococcal meningitis (confirmed yeast on LP) b). unlikely TB meningitis. c). Less likely pneumocystis carini 2. Abnormal chest x-ray and CT chest with tiny micronodular infiltrates throughout, could be cryptococcal pneumonia ,less likely miliary TB. Also mass like consolidation TASHA , fungal pneumonia most likely,? neoplasm 3. Acquired immune deficiency syndrome. 4. Headache/high fevers due to meningitis, improved Plan . 1. Continue with broad-spectrum antibiotics/anti-fungals f/u cryptococcal titres and TB spot test, much improved 2. Noncontrast CT chest reviewed 3. Follow all the culture results. 4. Follow Infectious Disease recommendations. 5. repeat CXR next week, NORBERTO ALLEN MD Jan 04, 2017 09:21
[2017-01-04] MEDS: IV NORMAL SALINE 1000ML BAG 1,000 ML IV SCH ×2 (09:23→19:44)
[2017-01-04] MEDS: [UNRECOGNIZED DRUG - OTHER] PO SCH (09:25)
[2017-01-04] MEDS: SMZ/TMP 800/160MG TABLET. PO SCH (09:25)
[2017-01-04] MEDS: valACYclovir 500 MG TABLET. PO SCH ×2 (09:25→20:52)
[2017-01-04] MEDS ORDERED: MAGNESIUM SULFATE 4GM 100 ML IV ONE (09:30)
[2017-01-04 11:00] VITALS: BP 97/59
--- NOTE | 2017-01-04 13:31 | PDOC ---
Infectious Disease Note Subjective Subjective Mild headache and some pressure behind eyes. Little dizzy earlier, better now Over all feeling much better ROS ROS GEN: Denies fevers, chills, sweats HEENT: Denies blurred vision, sore throat CV: Denies chest pain RESP: Denies shortness of air, cough GI: Denies n/v/d NEURO: Denies confusion MSK: Denies weakness, joint pain/swelling Vital Sign Vital Signs Vital Signs Date Time Temp Pulse Resp B/P Pulse Ox O2 Delivery O2 Flow Rate FiO2 01/04/17 11:00 99.1 16 16 97/59 96 Room Air 99.1 Physical Exam PHYSICAL EXAM GENERAL: Lying down, alert, relaxed appearance HEENT: PERRL, OC/OP clear, dentures NECK: Supple, no JVD, no LN LUNGS: Clear HEART: S1S2, no gallop, no murmur ABD: Soft, NT EXT: No edema, no cyanosis SURGICAL 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 clean Labs Lab Laboratory Tests Test 01/04/17 06:24 Sodium Level 128mmol/L (136-145) Potassium Level 3.6mmol/L (3.5-5.1) Chloride Level 96mmol/L (98-107) Carbon Dioxide Level 24mmol/L (21-32) Anion Gap 8 (6-14) Blood Urea Nitrogen 18mg/dL (8-26) Creatinine 1.2mg/dL (0.7-1.3) Estimated GFR (Cockcroft-Gault) 65.8 Glucose Level 104mg/dL (70-99) Calcium Level 8.6mg/dL (8.5-10.1) Phosphorus Level 4.3mg/dL (2.6-4.7) Magnesium Level 1.6mg/dL (1.8-2.4) Micro BLOOD CULTURE Preliminary NO GROWTH AFTER 3 DAYS CSF AEROBIC RES 1 Preliminary Yeast Objective Assessment Fever better Hyponatremia Meningitis, yeast likely Cryptococcus. Sinus congestion - CT neg. ? septum deviation AIDS VL 91,979 Sep and CD Oct. On Genvoya/Bactrim/Weekly Azithromycin Abnormal CXR H/o Hep B H/o Herpes oralis Plan Plan of Care Cont Rocephin/Bactrim/Valtrex. Wean Rocephin soon Weekly azithromycin Cont Ambisome/Flucytosine. Premed with Benadryl and Tylenol prior to Ambisome Cont Genvoya F/u Serum crypto/Histo/CMV Igm/Mycoplasma/TB spot F/u CSF crypto/VDRL/HSV F/u Labs/cults Will need to monitor electrolytes - K, Mg/ Phos with Ambisome Will need repeat LP for opening pressure if he worsens Patient seen and examined. Chart reviewed. Case discussed with AUTOMOTIVE TECHNICIAN. Multiple serious infections. High risk for IRIS- immune reconstitution Agree with above plan AB JEWELL APRN Jan 04, 2017 13:31 ADALGISA VERGARA MD Jan 04, 2017 15:44
[2017-01-04 15:00] VITALS: BP 121/62
[2017-01-04] MEDS: diphenhydrAMINE HCL 25 MG CAPSULE PO SCH (15:03)
[2017-01-04] MEDS: ACETAMINOPHEN 325 MG TABLET. PO SCH (15:03)
[2017-01-04] MEDS: AMPHOTERICIN B LIPOSOME IV SCH (15:36)
[2017-01-04] MEDS: DEXTROSE 5% IV SCH (15:36)
[2017-01-04 19:00] VITALS: BP 106/68
[2017-01-04 22:35] VITALS: BP 106/66
[2017-01-05] MEDS: FLUCYTOSINE 500 MG PO SCH ×4 (01:55→19:19)
[2017-01-05] MEDS: IV NORMAL SALINE 1000ML BAG 1,000 ML IV SCH ×3 (01:56→17:53)
[2017-01-05 05:25] LABS: BASO % 1 % (0-3); EOS % 7 % (0-3); HEMATOCRIT 28.2 % (39.0-53.0); HEMOGLOBIN 10.1 g/dL (13.0-17.5); LYMPH # 1.3 x10^3/uL (1.0-4.8); LYMPH % 28 % (24-48); MEAN CORPUSCULAR HEMOGLOBIN 31 pg (25-35); MEAN CORPUSCULAR HGB CONC 36 g/dL (31-37); MEAN CORPUSCULAR VOLUME 88 fL (79-100); MONO % 19 % (0-9); NEUT % 46 % (31-73); PLATELET COUNT 100 x10^3/uL (140-400); RED BLOOD COUNT 3.21 x10^6/uL (4.30-5.70); RED CELL DISTRIBUTION WIDTH 15.5 % (11.5-14.5); WHITE BLOOD COUNT 4.6 x10^3/uL (4.0-11.0)
[2017-01-05 05:55] LABS: CALCIUM 8.5 mg/dL (8.5-10.1); CREATININE 1.3 mg/dL (0.7-1.3); MAGNESIUM 1.7 mg/dL (1.8-2.4); POTASSIUM 3.8 mmol/L (3.5-5.1)
[2017-01-05 07:00] VITALS: BP 112/65
[2017-01-05] MEDS: SMZ/TMP 800/160MG TABLET. PO SCH (08:26)
[2017-01-05] MEDS: valACYclovir 500 MG TABLET. PO SCH ×2 (08:26→20:46)
[2017-01-05] MEDS: [UNRECOGNIZED DRUG - OTHER] PO SCH (08:26)
--- NOTE | 2017-01-05 09:03 | PDOC ---
PULMONARY PROGRESS NOTES Subjective much better Vitals Vital Signs Date Time Temp Pulse Resp B/P Pulse Ox O2 Delivery O2 Flow Rate FiO2 01/05/17 07:00 98.1 81 16 112/65 97 Room Air 98.1 General: Alert, No acute distress Lungs: Clear Abdomen: Soft Neuro Exam: Alert Extremities: No Edema Skin: Warm Labs Laboratory Tests Test 01/04/17 06:24 01/05/17 05:05 Sodium Level 128mmol/L (136-145) 130mmol/L (136-145) Potassium Level 3.6mmol/L (3.5-5.1) 3.8mmol/L (3.5-5.1) Chloride Level 96mmol/L (98-107) 99mmol/L (98-107) Carbon Dioxide Level 24mmol/L (21-32) 23mmol/L (21-32) Anion Gap 8 (6-14) 8 (6-14) Blood Urea Nitrogen 18mg/dL (8-26) 17mg/dL (8-26) Creatinine 1.2mg/dL (0.7-1.3) 1.3mg/dL (0.7-1.3) Estimated GFR (Cockcroft-Gault) 65.8 60.0 Glucose Level 104mg/dL (70-99) 98mg/dL (70-99) Calcium Level 8.6mg/dL (8.5-10.1) 8.5mg/dL (8.5-10.1) Phosphorus Level 4.3mg/dL (2.6-4.7) Magnesium Level 1.6mg/dL (1.8-2.4) 1.7mg/dL (1.8-2.4) White Blood Count 4.6x10^3/uL (4.0-11.0) Red Blood Count 3.21x10^6/uL (4.30-5.70) Hemoglobin 10.1g/dL (13.0-17.5) Hematocrit 28.2% (39.0-53.0) Mean Corpuscular Volume 88fL (79-100) Mean Corpuscular Hemoglobin 31pg (25-35) Mean Corpuscular Hemoglobin Concent 36g/dL (31-37) Red Cell Distribution Width 15.5% (11.5-14.5) Platelet Count 100x10^3/uL (140-400) Neutrophils (%) (Auto) 46% (31-73) Lymphocytes (%) (Auto) 28% (24-48) Monocytes (%) (Auto) 19% (0-9) Eosinophils (%) (Auto) 7% (0-3) Basophils (%) (Auto) 1% (0-3) Neutrophils # (Auto) 2.1x10^3uL (1.8-7.7) Lymphocytes # (Auto) 1.3x10^3/uL (1.0-4.8) Monocytes # (Auto) 0.9x10^3/uL (0.0-1.1) Eosinophils # (Auto) 0.3x10^3/uL (0.0-0.7) Basophils # (Auto) 0.0x10^3/uL (0.0-0.2) Laboratory Tests Test 01/05/17 05:05 White Blood Count 4.6x10^3/uL (4.0-11.0) Red Blood Count 3.21x10^6/uL (4.30-5.70) Hemoglobin 10.1g/dL (13.0-17.5) Hematocrit 28.2% (39.0-53.0) Mean Corpuscular Volume 88fL (79-100) Mean Corpuscular Hemoglobin 31pg (25-35) Mean Corpuscular Hemoglobin Concent 36g/dL (31-37) Red Cell Distribution Width 15.5% (11.5-14.5) Platelet Count 100x10^3/uL (140-400) Neutrophils (%) (Auto) 46% (31-73) Lymphocytes (%) (Auto) 28% (24-48) Monocytes (%) (Auto) 19% (0-9) Eosinophils (%) (Auto) 7% (0-3) Basophils (%) (Auto) 1% (0-3) Neutrophils # (Auto) 2.1x10^3uL (1.8-7.7) Lymphocytes # (Auto) 1.3x10^3/uL (1.0-4.8) Monocytes # (Auto) 0.9x10^3/uL (0.0-1.1) Eosinophils # (Auto) 0.3x10^3/uL (0.0-0.7) Basophils # (Auto) 0.0x10^3/uL (0.0-0.2) Sodium Level 130mmol/L (136-145) Potassium Level 3.8mmol/L (3.5-5.1) Chloride Level 99mmol/L (98-107) Carbon Dioxide Level 23mmol/L (21-32) Anion Gap 8 (6-14) Blood Urea Nitrogen 17mg/dL (8-26) Creatinine 1.3mg/dL (0.7-1.3) Estimated GFR (Cockcroft-Gault) 60.0 Glucose Level 98mg/dL (70-99) Calcium Level 8.5mg/dL (8.5-10.1) Magnesium Level 1.7mg/dL (1.8-2.4) Medications Active Scripts Medications Dose Route/Sig Days Date Category Valacyclovir (Valacyclovir Hcl) 1,000 Mg Tablet 1,000 Mg PO BID 01/01/17 Reported [Azithromycin] 1,200 Mg PO WEEKLY 01/01/17 Reported Genvoya Tablet (Elviteg/Aline/Emtric/Tenofo Ala) 1 Each Tablet 1 Each PO DAILY 01/01/17 Reported [Iron] 27 Mg PO DAILY 01/01/17 Reported [Collagen Support] 1,500 Mcg PO DAILY 01/01/17 Reported Impression . 1. Abnormal chest x-ray with diffuse tiny micro nodules in a patient, who has acquired immune deficiency syndrome and has a CD4 count of 56. Now presented with severe headache, high grade fever. The differential diagnoses would include: a). Cryptococcal meningitis (confirmed yeast on LP) b). unlikely TB meningitis. c). Less likely pneumocystis carini 2. Abnormal chest x-ray and CT chest with tiny micronodular infiltrates throughout, could be cryptococcal pneumonia ,less likely miliary TB. Also mass like consolidation TASHA , fungal pneumonia most likely,? neoplasm 3. Acquired immune deficiency syndrome. 4. Headache/high fevers due to meningitis, improved Plan . 1. Continue with broad-spectrum antibiotics/anti-fungals f/u cryptococcal titres and TB spot test, much improved 2. Noncontrast CT chest reviewed 3. Follow all the culture results. 4. Follow Infectious Disease recommendations. 5. repeat CXR next week, NORBERTO ALLEN MD Jan 05, 2017 09:03
[2017-01-05] MEDS ORDERED: MAGNESIUM SULFATE 4GM 100 ML IV ONE (09:30)
--- NOTE | 2017-01-05 09:48 | PDOC ---
Infectious Disease Note Subjective Subjective "I forget how it feels to feel good." Slept good, well rested Denies MANDUJANO, dizziness, confusion or visual changes ROS ROS GEN: Denies fevers, chills, sweats HEENT: Denies sore throat CV: Denies chest pain RESP: Denies shortness of air, cough GI: Denies n/v/d MSK: Denies weakness, joint pain/swelling Vital Sign Vital Signs Vital Signs Date Time Temp Pulse Resp B/P Pulse Ox O2 Delivery O2 Flow Rate FiO2 01/05/17 07:00 98.1 81 16 112/65 97 Room Air 98.1 Physical Exam PHYSICAL EXAM GENERAL: Propped up in bed, alert, smiling HEENT: Noral conjuctivae, OC/OP clear, dentures NECK: Supple, no LN LUNGS: Clear HEART: S1S2, no gallop, no murmur ABD: Soft, NT, BS present EXT: No edema, no cyanosis FIELD PIPELINES SUPERVISOR: Alert, 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, no focal neurologic deficit SKIN: No rash RUE-PICC. clean Labs Lab Laboratory Tests Test 01/05/17 05:05 White Blood Count 4.6x10^3/uL (4.0-11.0) Red Blood Count 3.21x10^6/uL (4.30-5.70) Hemoglobin 10.1g/dL (13.0-17.5) Hematocrit 28.2% (39.0-53.0) Mean Corpuscular Volume 88fL (79-100) Mean Corpuscular Hemoglobin 31pg (25-35) Mean Corpuscular Hemoglobin Concent 36g/dL (31-37) Red Cell Distribution Width 15.5% (11.5-14.5) Platelet Count 100x10^3/uL (140-400) Neutrophils (%) (Auto) 46% (31-73) Lymphocytes (%) (Auto) 28% (24-48) Monocytes (%) (Auto) 19% (0-9) Eosinophils (%) (Auto) 7% (0-3) Basophils (%) (Auto) 1% (0-3) Neutrophils # (Auto) 2.1x10^3uL (1.8-7.7) Lymphocytes # (Auto) 1.3x10^3/uL (1.0-4.8) Monocytes # (Auto) 0.9x10^3/uL (0.0-1.1) Eosinophils # (Auto) 0.3x10^3/uL (0.0-0.7) Basophils # (Auto) 0.0x10^3/uL (0.0-0.2) Sodium Level 130mmol/L (136-145) Potassium Level 3.8mmol/L (3.5-5.1) Chloride Level 99mmol/L (98-107) Carbon Dioxide Level 23mmol/L (21-32) Anion Gap 8 (6-14) Blood Urea Nitrogen 17mg/dL (8-26) Creatinine 1.3mg/dL (0.7-1.3) Estimated GFR (Cockcroft-Gault) 60.0 Glucose Level 98mg/dL (70-99) Calcium Level 8.5mg/dL (8.5-10.1) Magnesium Level 1.7mg/dL (1.8-2.4) Micro BLOOD CULTURE Preliminary NO GROWTH AFTER 4 DAYS CSF AEROBIC RES 1 Preliminary Yeast Objective Assessment Fever better Hyponatremia, low mag. Meningitis, yeast likely Cryptococcus. Sinus congestion - CT neg. ? septum deviation AIDS VL 91,979 Sep and CD Oct. On Genvoya/Bactrim/Weekly Azithromycin Abnormal CXR H/o Hep B H/o Herpes oralis Plan Plan of Care Cont Rocephin/Bactrim/Valtrex. Wean Rocephin soon Weekly azithromycin Cont Ambisome/Flucytosine. Premed with Benadryl and Tylenol prior to Ambisome Cont Genvoya F/u Serum crypto, TB spot F/u CSF crypto, HSV F/u Labs/cults Will need to monitor and replace electrolytes - K, Mg/ Phos with Ambisome Will need repeat LP for opening pressure if he worsens Patient seen and examined. Chart reviewed. 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 Agree with above plan AB JEWELL TANDEM MILL STICKER Jan 05, 2017 09:48 ADALGISA VERGARA MD Jan 05, 2017 15:58
--- NOTE | 2017-01-05 10:42 | PDOC2 ---
CONSULT Date of Consult Date of Consult DATE: 01/05/17 TIME: 10:37 Reason for Consult Reason for Consult: HYPONATREMIA Referring Physician Referring Physician: HELIO Identification/Chief Complaint Chief Complaint HEADACHES Source Source: Chart review, Patient History of Present Illness Reason for Visit: THIS IS A 46 YR OLD ADMITTED WITH HEADACHES AND FEVERS. HX NOTABLE FOR RECENT DX OF HIV. SINCE ADMIT HE HAS HAD AN LP AN HAS BEEN DIAGNOSED WITH CRYPTOCOCCAL MENINGITIS. HIS NA WAS 127 YESTERDAY AND TODAY IT IS 130. NO HX OF DIURETIC USE RECENTLY Past Medical History Past Medical History HIV Hepatobiliary: Hep A/B/C (B) Infectious disease: HIV Renal/: No pertinent hx Endocrine: No pertinent hx Dermatology: No pertinent hx Past Surgical History Past Surgical History: No pertinent history Family History Family History: No Significant Social History No ALCOHOL: none Drugs: None Lives: Friends Current Problem List Problem List Problems Medical Problems: (1) Fever Status: Acute (2) Headache Status: Acute (3) Immunocompromised Status: Acute Current Medications Current Medications Current Medications Sodium Chloride (Iv Sodium Chloride 0.9% 1000ml Bag) 1,000 ml @ 1,000 mls/hr 1X ONCE IV Last administered on 12/31/16 22:00; Start 12/31/16 at 22:00; Stop 12/31/16 at 22:59; Status DC Morphine Sulfate 4 mg 1X ONCE IV Last administered on 12/31/16 22:02; Start 12/31/16 at 22:00; Stop 12/31/16 at 22:01; Status DC Lorazepam (Ativan) 2 mg STK-MED ONCE .ROUTE ; Start 12/31/16 at 22:31; Stop at 22:32; Status DC Lorazepam (Ativan) 1 mg 1X STAT IV Last administered on 12/31/16 22:35; Start 12/31/16 at 22:32; Stop 12/31/16 at 22:38; Status DC Acetaminophen (Tylenol) 1,000 mg 1X ONCE PO Last administered on 12/31/16 23: 11; Start 12/31/16 at 23:15; Stop 12/31/16 at 23:16; Status DC Hydromorphone HCl (Dilaudid) 0.5 mg 1X ONCE IV Last administered on 12/31/16 23:11; Start 12/31/16 at 23:15; Stop 12/31/16 at 23:16; Status DC Vancomycin HCl 1 each 1 each PRN DAILY PRN MC SEE COMMENTS Last administered on 01/01/17 02:42; Start 12/31/16 at 23:15; Stop 01/01/17 at 13:28; Status DC Ceftriaxone Sodium 2 gm/ Sodium Chloride 100 ml @ 200 mls/hr 1X ONCE IV Last administered on 12/31/16 23:30; Start 12/31/16 at 23:30; Stop 12/31/16 at 23:59 ; Status DC Vancomycin HCl 2 gm/Sodium Chloride 500 ml @ 250 mls/hr 1X ONCE IV Last administered on 01/01/17 00:00; Start 01/01/17 at 00:00; Stop 01/01/17 at 01:59 ; Status DC Fluconazole/ Sodium Chloride (Diflucan 400mg/ 200ml Premix) 200 ml @ 100 mls/ hr 1X ONCE IV Last administered on 01/01/17 03:12; Start 12/31/16 at 23:30; Stop 01/01/17 at 01:29; Status DC Ondansetron HCl (Zofran) 4 mg PRN Q8HRS PRN IV NAUSEA/VOMITING; Start 01/01/17 at 00:30; Stop 01/02/17 at 00:29; Status DC Morphine Sulfate 4 mg 4 mg PRN Q2HR PRN IV SEVERE PAIN Last administered on 20:44; Start 01/01/17 at 00:30; Stop 01/02/17 at 00:29; Status DC Sodium Chloride (Iv Sodium Chloride 0.9% 1000ml Bag) 1,000 ml @ 100 mls/hr Q10H IV Last administered on 01/01/17 02:07; Start 01/01/17 at 00:28; Stop at 09:20; Status DC Acetaminophen 650 mg 650 mg PRN Q4HRS PRN PO FEVER Last administered on 23:35; Start 01/01/17 at 00:30; Stop 01/02/17 at 00:29; Status DC Vancomycin HCl/ Sodium Chloride (Iv Sodium Chloride 0.9% 500ml Bag) 500 ml @ 250 mls/hr Q8H IV Last administered on 01/01/17 08:13; Start 01/01/17 at 08:00 ; Stop 01/01/17 at 13:28; Status DC Vancomycin HCl 1 each 1X ONCE MC ; Start 01/01/17 at 23:30; Stop 01/01/17 at 23 :30; Status DC Elvitegravir/ Cobicis/Emtricit/ Tenof (Genvoya) 1 tab DAILY PO Last administered on 01/05/17 08:26; Start 01/02/17 at 11:00 Valacyclovir HCl (Valtrex) 1,000 mg BID PO Last administered on 01/05/17 08:26 ; Start 01/01/17 at 21:00 Non-Formulary Medication 1,200 mg WEEKLY PO ; Start 01/08/17 at 09:00; Stop at 09:00; Status DC Non-Formulary Medication 1500 mcg 1,500 mcg DAILY PO ; Start 01/02/17 at 09:00; Status UNV Sodium Chloride (Iv Sodium Chloride 0.9% 1000ml Bag) 1,000 ml @ 150 mls/hr Q6H40M IV ; Start 01/01/17 at 09:05; Stop 01/01/17 at 09:34; Status DC Saliva Substitute 2 spray 2 spray PRN Q15MIN PRN PO DRY MOUTH; Start 01/01/17 at 09:15 Ceftriaxone Sodium 2 gm/ Sodium Chloride 100 ml @ 200 mls/hr Q12HR IV Last administered on 01/05/17 08:26; Start 01/01/17 at 21:00 Ampicillin Sodium 2 gm/Sodium Chloride 100 ml @ 200 mls/hr Q4HRS IV Last administered on 01/01/17 13:09; Start 01/01/17 at 12:00; Stop 01/01/17 at 13:28 ; Status DC Fluconazole/ Sodium Chloride (Diflucan 400mg/ 200ml Premix) 200 ml @ 100 mls/ hr Q24H IV ; Start 01/01/17 at 12:00; Stop 01/01/17 at 13:28; Status DC Trimethoprim/ Sulfamethoxazole (Bactrim Ds) 1 tab DAILY PO Last administered on 01/05/17 08:26; Start 01/01/17 at 09:00 Azithromycin 500 mg 500 mg DAILY PO Last administered on 01/03/17 08:46; Start 01/01/17 at 11:30; Stop 01/03/17 at 08:48; Status DC Amphotericin B/ Dextrose (Ambisome) 500 ml @ 250 mls/hr Q24H IV Last administered on 01/04/17 15:36; Start 01/01/17 at 14:00 Flucytosine (Ancobon) 2,500 mg Q6H PO Last administered on 01/05/17 08:26; Start 01/01/17 at 14:00 Morphine Sulfate 4 mg PRN Q2HR PRN IV PAIN Last administered on 01/04/17 14:23 ; Start 01/02/17 at 08:00 Acetaminophen (Tylenol) 650 mg PRN Q6HRS PRN PO fever or pain Last administered on 01/02/17 19:30; Start 01/02/17 at 08:00 Sodium Chloride (Saline Mist Nasal) 1 fab PRN Q1HR PRN NS NASAL CONGESTION; Start 01/02/17 at 10:45 Diphenhydramine HCl (Benadryl) 25 mg DAILY PO Last administered on 01/02/17 12 :43; Start 01/02/17 at 13:30; Stop 01/02/17 at 19:56; Status DC Acetaminophen (Tylenol) 650 mg DAILY PO Last administered on 01/02/17 12:43; Start 01/02/17 at 13:30; Stop 01/02/17 at 19:55; Status DC Flucytosine (Ancobon) 2,500 mg Q6HRS PO ; Start 01/02/17 at 18:00; Status UNV Acetaminophen (Tylenol) 650 mg Q24H PO Last administered on 01/04/17 15:03; Start 01/03/17 at 13:30 Diphenhydramine HCl (Benadryl) 25 mg Q24H PO Last administered on 01/04/17 15: 03; Start 01/03/17 at 13:00 Azithromycin 500 mg 500 mg DAILY PO Last administered on 01/03/17 09:00; Start 01/03/17 at 09:00; Stop 01/03/17 at 13:00; Status DC Magnesium Sulfate/ Dextrose 50 ml @ 25 mls/hr 1X ONCE IV Last administered on 01/03/17 10:47; Start 01/03/17 at 09:30; Stop 01/03/17 at 11:29; Status DC Sodium Phosphate 20 mmol/Dextrose 256.6667 ml @ 64.167 m... 1X ONCE IV Last administered on 01/03/17 10:47; Start 01/03/17 at 09:30; Stop 01/03/17 at 13:29 ; Status DC Sodium Chloride 1,000 ml @ 125 mls/hr Q8H IV Last administered on 01/05/17 01 :56; Start 01/04/17 at 09:00 Magnesium Sulfate/ Dextrose 100 ml @ 25 mls/hr 1X ONCE IV Last administered on 01/04/17 10:48; Start 01/04/17 at 09:30; Stop 01/04/17 at 13:29; Status DC Magnesium Sulfate/ Dextrose 100 ml @ 25 mls/hr 1X ONCE IV Last administered on 01/05/17 09:31; Start 01/05/17 at 09:30; Stop 01/05/17 at 13:29 Magnesium Sulfate/ Dextrose (Magnesium Sulfate PREMIX 2GM) 50 ml @ 25 mls/hr DAILY IV ; Start 01/06/17 at 09:00 Active Scripts Active Reported Valacyclovir (Valacyclovir Hcl) 1,000 Mg Tablet 1,000 Mg PO BID [Azithromycin] 1,200 Mg PO WEEKLY Genvoya Tablet (Elviteg/Aline/Emtric/Tenofo Ala) 1 Each Tablet 1 Each PO DAILY [Iron] 27 Mg PO DAILY [Collagen Support] 1,500 Mcg PO DAILY Allergies Allergies: Coded Allergies: No Known Drug Allergies (Unverified , 02/18/15) ROS Review of System NEG EXCEPT BELOW General: YES: Appetite, Fatigue PSYCHOLOGICAL ROS: YES: Depression HEENT: YES: Heacaches Physical Exam General: Alert, Oriented X3, Cooperative, No acute distress HEENT: Atraumatic, PERRLA Lungs: Clear to auscultation Heart: Regular rate, Normal S1, Normal S2 Abdomen: Normal bowel sounds, No tenderness Extremities: No clubbing Skin: No breakdown Neuro: Normal speech, Cranial nerves 3-12 NL Psych/Mental Status: Mental status NL, Mood NL MUSCULOSKELETAL: No deformity Vitals VITALS Vital Signs Date Time Temp Pulse Resp B/P Pulse Ox O2 Delivery O2 Flow Rate FiO2 01/05/17 08:00 Room Air 01/05/17 07:00 98.1 81 16 112/65 97 98.1 Labs Labs Laboratory Tests Test 01/04/17 06:24 01/05/17 05:05 Sodium Level 128mmol/L (136-145) 130mmol/L (136-145) Potassium Level 3.6mmol/L (3.5-5.1) 3.8mmol/L (3.5-5.1) Chloride Level 96mmol/L (98-107) 99mmol/L (98-107) Carbon Dioxide Level 24mmol/L (21-32) 23mmol/L (21-32) Anion Gap 8 (6-14) 8 (6-14) Blood Urea Nitrogen 18mg/dL (8-26) 17mg/dL (8-26) Creatinine 1.2mg/dL (0.7-1.3) 1.3mg/dL (0.7-1.3) Estimated GFR (Cockcroft-Gault) 65.8 60.0 Glucose Level 104mg/dL (70-99) 98mg/dL (70-99) Calcium Level 8.6mg/dL (8.5-10.1) 8.5mg/dL (8.5-10.1) Phosphorus Level 4.3mg/dL (2.6-4.7) Magnesium Level 1.6mg/dL (1.8-2.4) 1.7mg/dL (1.8-2.4) White Blood Count 4.6x10^3/uL (4.0-11.0) Red Blood Count 3.21x10^6/uL (4.30-5.70) Hemoglobin 10.1g/dL (13.0-17.5) Hematocrit 28.2% (39.0-53.0) Mean Corpuscular Volume 88fL (79-100) Mean Corpuscular Hemoglobin 31pg (25-35) Mean Corpuscular Hemoglobin Concent 36g/dL (31-37) Red Cell Distribution Width 15.5% (11.5-14.5) Platelet Count 100x10^3/uL (140-400) Neutrophils (%) (Auto) 46% (31-73) Lymphocytes (%) (Auto) 28% (24-48) Monocytes (%) (Auto) 19% (0-9) Eosinophils (%) (Auto) 7% (0-3) Basophils (%) (Auto) 1% (0-3) Neutrophils # (Auto) 2.1x10^3uL (1.8-7.7) Lymphocytes # (Auto) 1.3x10^3/uL (1.0-4.8) Monocytes # (Auto) 0.9x10^3/uL (0.0-1.1) Eosinophils # (Auto) 0.3x10^3/uL (0.0-0.7) Basophils # (Auto) 0.0x10^3/uL (0.0-0.2) Laboratory Tests Test 01/05/17 05:05 White Blood Count 4.6x10^3/uL (4.0-11.0) Red Blood Count 3.21x10^6/uL (4.30-5.70) Hemoglobin 10.1g/dL (13.0-17.5) Hematocrit 28.2% (39.0-53.0) Mean Corpuscular Volume 88fL (79-100) Mean Corpuscular Hemoglobin 31pg (25-35) Mean Corpuscular Hemoglobin Concent 36g/dL (31-37) Red Cell Distribution Width 15.5% (11.5-14.5) Platelet Count 100x10^3/uL (140-400) Neutrophils (%) (Auto) 46% (31-73) Lymphocytes (%) (Auto) 28% (24-48) Monocytes (%) (Auto) 19% (0-9) Eosinophils (%) (Auto) 7% (0-3) Basophils (%) (Auto) 1% (0-3) Neutrophils # (Auto) 2.1x10^3uL (1.8-7.7) Lymphocytes # (Auto) 1.3x10^3/uL (1.0-4.8) Monocytes # (Auto) 0.9x10^3/uL (0.0-1.1) Eosinophils # (Auto) 0.3x10^3/uL (0.0-0.7) Basophils # (Auto) 0.0x10^3/uL (0.0-0.2) Sodium Level 130mmol/L (136-145) Potassium Level 3.8mmol/L (3.5-5.1) Chloride Level 99mmol/L (98-107) Carbon Dioxide Level 23mmol/L (21-32) Anion Gap 8 (6-14) Blood Urea Nitrogen 17mg/dL (8-26) Creatinine 1.3mg/dL (0.7-1.3) Estimated GFR (Cockcroft-Gault) 60.0 Glucose Level 98mg/dL (70-99) Calcium Level 8.5mg/dL (8.5-10.1) Magnesium Level 1.7mg/dL (1.8-2.4) Assessment/Plan Assessment/Plan IMP HIV HEADACHES CRYPTOCOCCAL MENINGITIS HYPONATREMIA LOW MAGNESIUM PLAN CHECK TSH URINE LYTES MAG REPLACEMENT LOW NA MOST LIKELY SIADH ISOTONIC SALINE FOR NOW SINCE NA HAS IMPROVED WILL FOLLOW LABS IN SY[place]IA WOOD MD Jan 05, 2017 10:42
[2017-01-05 11:00] VITALS: BP 160/86
--- NOTE | 2017-01-05 11:16 | PDOC ---
PROGRESS NOTES Chief Complaint Chief Complaint 1. 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 AIDS On Genvoya/Bactrim/Weekly Azithromycin 3. Fever ? related to infection vs Ambisome now - RESOLVED 4,. hypomagnesemia, hyponatremia sec to AMbisone H/o Hep B H/o Herpes oralis SIRS POA, infectious, no organ dysfcn THrombocytopenia, stable ELevated LFTS CHronic sinusitis History of Present Illness History of Present Illness Doing well \HAd a very good night sleep Na better 130 since started on NS friday MAg still stable low (1.4-1.7 range) - despite iV replacement - got 4 mgs friday NO fevers NO white ct HAs a R PICC Planned for 2 weeks anti fungal then shift to PO - planning on getting OP infusion daily x 2 weeks - he can do OP anti fungal Dw ID and pt He is looking forward to home alexandra Friday EARLIER ENTRY: Claims has chronic sinusitis x 2 yrs Did discuss once his infections is over - visit ENT for sinusitis intervention - caused fungal mening in this immunocomp - he understands PLAN: 2 weeks IV antifungal thru PICC then PO SW friday - arrange for OP infusion x 2 weeks Replace mag again today 4 gms, start MAg 2 gms IV daily WILL NEED SCRIPT FOR PO MAG upn dc - LIKELY ALEXANDRA I did consult renal re use of hypertonic saline- cont isotonic for now Vitals Vitals Vital Signs Date Time Temp Pulse Resp B/P Pulse Ox O2 Delivery O2 Flow Rate FiO2 01/05/17 08:00 Room Air 01/05/17 07:00 98.1 81 16 112/65 97 98.1 Physical Exam General: Alert, Oriented X3, Cooperative, No acute distress Heart: Regular rate, Normal S1, Normal S2 Lungs: Clear Abdomen: Normal bowel sounds, No tenderness Extremities: No clubbing Skin: No breakdown Labs LABS Laboratory Tests Test 01/05/17 05:05 White Blood Count 4.6x10^3/uL (4.0-11.0) Red Blood Count 3.21x10^6/uL (4.30-5.70) Hemoglobin 10.1g/dL (13.0-17.5) Hematocrit 28.2% (39.0-53.0) Mean Corpuscular Volume 88fL (79-100) Mean Corpuscular Hemoglobin 31pg (25-35) Mean Corpuscular Hemoglobin Concent 36g/dL (31-37) Red Cell Distribution Width 15.5% (11.5-14.5) Platelet Count 100x10^3/uL (140-400) Neutrophils (%) (Auto) 46% (31-73) Lymphocytes (%) (Auto) 28% (24-48) Monocytes (%) (Auto) 19% (0-9) Eosinophils (%) (Auto) 7% (0-3) Basophils (%) (Auto) 1% (0-3) Neutrophils # (Auto) 2.1x10^3uL (1.8-7.7) Lymphocytes # (Auto) 1.3x10^3/uL (1.0-4.8) Monocytes # (Auto) 0.9x10^3/uL (0.0-1.1) Eosinophils # (Auto) 0.3x10^3/uL (0.0-0.7) Basophils # (Auto) 0.0x10^3/uL (0.0-0.2) Sodium Level 130mmol/L (136-145) Potassium Level 3.8mmol/L (3.5-5.1) Chloride Level 99mmol/L (98-107) Carbon Dioxide Level 23mmol/L (21-32) Anion Gap 8 (6-14) Blood Urea Nitrogen 17mg/dL (8-26) Creatinine 1.3mg/dL (0.7-1.3) Estimated GFR (Cockcroft-Gault) 60.0 Glucose Level 98mg/dL (70-99) Calcium Level 8.5mg/dL (8.5-10.1) Magnesium Level 1.7mg/dL (1.8-2.4) Review of Systems Review of Systems mild headaches - otherwise neg 14 pt Assessment and Plan Assessmemt and Plan Problems Medical Problems: (1) Fever Status: Acute (2) Headache Status: Acute (3) Immunocompromised Status: Acute Problems: Comment Review of Relevant I have reviewed the following items garland (where applicable) has been applied. Labs Laboratory Tests Test 01/04/17 06:24 01/05/17 05:05 Sodium Level 128mmol/L (136-145) 130mmol/L (136-145) Potassium Level 3.6mmol/L (3.5-5.1) 3.8mmol/L (3.5-5.1) Chloride Level 96mmol/L (98-107) 99mmol/L (98-107) Carbon Dioxide Level 24mmol/L (21-32) 23mmol/L (21-32) Anion Gap 8 (6-14) 8 (6-14) Blood Urea Nitrogen 18mg/dL (8-26) 17mg/dL (8-26) Creatinine 1.2mg/dL (0.7-1.3) 1.3mg/dL (0.7-1.3) Estimated GFR (Cockcroft-Gault) 65.8 60.0 Glucose Level 104mg/dL (70-99) 98mg/dL (70-99) Calcium Level 8.6mg/dL (8.5-10.1) 8.5mg/dL (8.5-10.1) Phosphorus Level 4.3mg/dL (2.6-4.7) Magnesium Level 1.6mg/dL (1.8-2.4) 1.7mg/dL (1.8-2.4) White Blood Count 4.6x10^3/uL (4.0-11.0) Red Blood Count 3.21x10^6/uL (4.30-5.70) Hemoglobin 10.1g/dL (13.0-17.5) Hematocrit 28.2% (39.0-53.0) Mean Corpuscular Volume 88fL (79-100) Mean Corpuscular Hemoglobin 31pg (25-35) Mean Corpuscular Hemoglobin Concent 36g/dL (31-37) Red Cell Distribution Width 15.5% (11.5-14.5) Platelet Count 100x10^3/uL (140-400) Neutrophils (%) (Auto) 46% (31-73) Lymphocytes (%) (Auto) 28% (24-48) Monocytes (%) (Auto) 19% (0-9) Eosinophils (%) (Auto) 7% (0-3) Basophils (%) (Auto) 1% (0-3) Neutrophils # (Auto) 2.1x10^3uL (1.8-7.7) Lymphocytes # (Auto) 1.3x10^3/uL (1.0-4.8) Monocytes # (Auto) 0.9x10^3/uL (0.0-1.1) Eosinophils # (Auto) 0.3x10^3/uL (0.0-0.7) Basophils # (Auto) 0.0x10^3/uL (0.0-0.2) Laboratory Tests Test 01/05/17 05:05 White Blood Count 4.6x10^3/uL (4.0-11.0) Red Blood Count 3.21x10^6/uL (4.30-5.70) Hemoglobin 10.1g/dL (13.0-17.5) Hematocrit 28.2% (39.0-53.0) Mean Corpuscular Volume 88fL (79-100) Mean Corpuscular Hemoglobin 31pg (25-35) Mean Corpuscular Hemoglobin Concent 36g/dL (31-37) Red Cell Distribution Width 15.5% (11.5-14.5) Platelet Count 100x10^3/uL (140-400) Neutrophils (%) (Auto) 46% (31-73) Lymphocytes (%) (Auto) 28% (24-48) Monocytes (%) (Auto) 19% (0-9) Eosinophils (%) (Auto) 7% (0-3) Basophils (%) (Auto) 1% (0-3) Neutrophils # (Auto) 2.1x10^3uL (1.8-7.7) Lymphocytes # (Auto) 1.3x10^3/uL (1.0-4.8) Monocytes # (Auto) 0.9x10^3/uL (0.0-1.1) Eosinophils # (Auto) 0.3x10^3/uL (0.0-0.7) Basophils # (Auto) 0.0x10^3/uL (0.0-0.2) Sodium Level 130mmol/L (136-145) Potassium Level 3.8mmol/L (3.5-5.1) Chloride Level 99mmol/L (98-107) Carbon Dioxide Level 23mmol/L (21-32) Anion Gap 8 (6-14) Blood Urea Nitrogen 17mg/dL (8-26) Creatinine 1.3mg/dL (0.7-1.3) Estimated GFR (Cockcroft-Gault) 60.0 Glucose Level 98mg/dL (70-99) Calcium Level 8.5mg/dL (8.5-10.1) Magnesium Level 1.7mg/dL (1.8-2.4) Microbiology 12/31/16 Blood Culture - Preliminary, Resulted NO GROWTH AFTER 4 DAYS 01/01/17 AFB Specimen Processing Tissue - Final, Resulted 01/01/17 Acid Fast Bacilli Culture, Resulted Pending 01/01/17 Gram Stain - Final, Resulted Medications Current Medications Sodium Chloride (Iv Sodium Chloride 0.9% 1000ml Bag) 1,000 ml @ 1,000 mls/hr 1X ONCE IV Last administered on 12/31/16 22:00; Start 12/31/16 at 22:00; Stop 12/31/16 at 22:59; Status DC Morphine Sulfate 4 mg 1X ONCE IV Last administered on 12/31/16 22:02; Start 12/31/16 at 22:00; Stop 12/31/16 at 22:01; Status DC Lorazepam (Ativan) 2 mg STK-MED ONCE .ROUTE ; Start 12/31/16 at 22:31; Stop at 22:32; Status DC Lorazepam (Ativan) 1 mg 1X STAT IV Last administered on 12/31/16 22:35; Start 12/31/16 at 22:32; Stop 12/31/16 at 22:38; Status DC Acetaminophen (Tylenol) 1,000 mg 1X ONCE PO Last administered on 12/31/16 23: 11; Start 12/31/16 at 23:15; Stop 12/31/16 at 23:16; Status DC Hydromorphone HCl (Dilaudid) 0.5 mg 1X ONCE IV Last administered on 12/31/16 23:11; Start 12/31/16 at 23:15; Stop 12/31/16 at 23:16; Status DC Vancomycin HCl 1 each 1 each PRN DAILY PRN MC SEE COMMENTS Last administered on 01/01/17 02:42; Start 12/31/16 at 23:15; Stop 01/01/17 at 13:28; Status DC Ceftriaxone Sodium 2 gm/ Sodium Chloride 100 ml @ 200 mls/hr 1X ONCE IV Last administered on 12/31/16 23:30; Start 12/31/16 at 23:30; Stop 12/31/16 at 23:59 ; Status DC Vancomycin HCl 2 gm/Sodium Chloride 500 ml @ 250 mls/hr 1X ONCE IV Last administered on 01/01/17 00:00; Start 01/01/17 at 00:00; Stop 01/01/17 at 01:59 ; Status DC Fluconazole/ Sodium Chloride (Diflucan 400mg/ 200ml Premix) 200 ml @ 100 mls/ hr 1X ONCE IV Last administered on 01/01/17 03:12; Start 12/31/16 at 23:30; Stop 01/01/17 at 01:29; Status DC Ondansetron HCl (Zofran) 4 mg PRN Q8HRS PRN IV NAUSEA/VOMITING; Start 01/01/17 at 00:30; Stop 01/02/17 at 00:29; Status DC Morphine Sulfate 4 mg 4 mg PRN Q2HR PRN IV SEVERE PAIN Last administered on 20:44; Start 01/01/17 at 00:30; Stop 01/02/17 at 00:29; Status DC Sodium Chloride (Iv Sodium Chloride 0.9% 1000ml Bag) 1,000 ml @ 100 mls/hr Q10H IV Last administered on 01/01/17 02:07; Start 01/01/17 at 00:28; Stop at 09:20; Status DC Acetaminophen 650 mg 650 mg PRN Q4HRS PRN PO FEVER Last administered on 23:35; Start 01/01/17 at 00:30; Stop 01/02/17 at 00:29; Status DC Vancomycin HCl/ Sodium Chloride (Iv Sodium Chloride 0.9% 500ml Bag) 500 ml @ 250 mls/hr Q8H IV Last administered on 01/01/17 08:13; Start 01/01/17 at 08:00 ; Stop 01/01/17 at 13:28; Status DC Vancomycin HCl 1 each 1X ONCE MC ; Start 01/01/17 at 23:30; Stop 01/01/17 at 23 :30; Status DC Elvitegravir/ Cobicis/Emtricit/ Tenof (Genvoya) 1 tab DAILY PO Last administered on 01/05/17 08:26; Start 01/02/17 at 11:00 Valacyclovir HCl (Valtrex) 1,000 mg BID PO Last administered on 01/05/17 08:26 ; Start 01/01/17 at 21:00 Non-Formulary Medication 1,200 mg WEEKLY PO ; Start 01/08/17 at 09:00; Stop at 09:00; Status DC Non-Formulary Medication 1500 mcg 1,500 mcg DAILY PO ; Start 01/02/17 at 09:00; Status UNV Sodium Chloride (Iv Sodium Chloride 0.9% 1000ml Bag) 1,000 ml @ 150 mls/hr Q6H40M IV ; Start 01/01/17 at 09:05; Stop 01/01/17 at 09:34; Status DC Saliva Substitute 2 spray 2 spray PRN Q15MIN PRN PO DRY MOUTH; Start 01/01/17 at 09:15 Ceftriaxone Sodium 2 gm/ Sodium Chloride 100 ml @ 200 mls/hr Q12HR IV Last administered on 01/05/17 08:26; Start 01/01/17 at 21:00 Ampicillin Sodium 2 gm/Sodium Chloride 100 ml @ 200 mls/hr Q4HRS IV Last administered on 01/01/17 13:09; Start 01/01/17 at 12:00; Stop 01/01/17 at 13:28 ; Status DC Fluconazole/ Sodium Chloride (Diflucan 400mg/ 200ml Premix) 200 ml @ 100 mls/ hr Q24H IV ; Start 01/01/17 at 12:00; Stop 01/01/17 at 13:28; Status DC Trimethoprim/ Sulfamethoxazole (Bactrim Ds) 1 tab DAILY PO Last administered on 01/05/17 08:26; Start 01/01/17 at 09:00 Azithromycin 500 mg 500 mg DAILY PO Last administered on 01/03/17 08:46; Start 01/01/17 at 11:30; Stop 01/03/17 at 08:48; Status DC Amphotericin B/ Dextrose (Ambisome) 500 ml @ 250 mls/hr Q24H IV Last administered on 01/04/17 15:36; Start 01/01/17 at 14:00 Flucytosine (Ancobon) 2,500 mg Q6H PO Last administered on 01/05/17 08:26; Start 01/01/17 at 14:00 Morphine Sulfate 4 mg PRN Q2HR PRN IV PAIN Last administered on 01/04/17 14:23 ; Start 01/02/17 at 08:00 Acetaminophen (Tylenol) 650 mg PRN Q6HRS PRN PO fever or pain Last administered on 01/02/17 19:30; Start 01/02/17 at 08:00 Sodium Chloride (Saline Mist Nasal) 1 fab PRN Q1HR PRN NS NASAL CONGESTION; Start 01/02/17 at 10:45 Diphenhydramine HCl (Benadryl) 25 mg DAILY PO Last administered on 01/02/17 12 :43; Start 01/02/17 at 13:30; Stop 01/02/17 at 19:56; Status DC Acetaminophen (Tylenol) 650 mg DAILY PO Last administered on 01/02/17 12:43; Start 01/02/17 at 13:30; Stop 01/02/17 at 19:55; Status DC Flucytosine (Ancobon) 2,500 mg Q6HRS PO ; Start 01/02/17 at 18:00; Status UNV Acetaminophen (Tylenol) 650 mg Q24H PO Last administered on 01/04/17 15:03; Start 01/03/17 at 13:30 Diphenhydramine HCl (Benadryl) 25 mg Q24H PO Last administered on 01/04/17 15: 03; Start 01/03/17 at 13:00 Azithromycin 500 mg 500 mg DAILY PO Last administered on 01/03/17 09:00; Start 01/03/17 at 09:00; Stop 01/03/17 at 13:00; Status DC Magnesium Sulfate/ Dextrose 50 ml @ 25 mls/hr 1X ONCE IV Last administered on 01/03/17 10:47; Start 01/03/17 at 09:30; Stop 01/03/17 at 11:29; Status DC Sodium Phosphate 20 mmol/Dextrose 256.6667 ml @ 64.167 m... 1X ONCE IV Last administered on 01/03/17 10:47; Start 01/03/17 at 09:30; Stop 01/03/17 at 13:29 ; Status DC Sodium Chloride 1,000 ml @ 125 mls/hr Q8H IV Last administered on 01/05/17 01 :56; Start 01/04/17 at 09:00 Magnesium Sulfate/ Dextrose 100 ml @ 25 mls/hr 1X ONCE IV Last administered on 01/04/17 10:48; Start 01/04/17 at 09:30; Stop 01/04/17 at 13:29; Status DC Magnesium Sulfate/ Dextrose 100 ml @ 25 mls/hr 1X ONCE IV Last administered on 01/05/17 09:31; Start 01/05/17 at 09:30; Stop 01/05/17 at 13:29 Magnesium Sulfate/ Dextrose (Magnesium Sulfate PREMIX 2GM) 50 ml @ 25 mls/hr DAILY IV ; Start 01/06/17 at 09:00 Active Scripts Active Reported Valacyclovir (Valacyclovir Hcl) 1,000 Mg Tablet 1,000 Mg PO BID [Azithromycin] 1,200 Mg PO WEEKLY Genvoya Tablet (Elviteg/Aline/Emtric/Tenofo Ala) 1 Each Tablet 1 Each PO DAILY [Iron] 27 Mg PO DAILY [Collagen Support] 1,500 Mcg PO DAILY Vitals/I & O Vital Sign - Last 24 Hours 01/04/17 01/04/17 01/04/17 01/04/17 14:23 15:00 19:00 22:35 Temp 99.1 97.8 98.0 99.1 97.8 98.0 Pulse 79 77 76 Resp 16 18 17 B/P 121/62 106/68 106/66 Pulse Ox 96 99 98 O2 Delivery Room Air Room Air Room Air Room Air 01/05/17 01/05/17 07:00 08:00 Temp 98.1 98.1 Pulse 81 Resp 16 B/P 112/65 Pulse Ox 97 O2 Delivery Room Air Room Air Intake and Output 01/04/17 01/04/17 01/05/17 15:00 23:00 07:00 Intake Total 720 ml 600 ml 120 ml Output Total 450 ml 1830 ml Balance 720 ml 150 ml -1710 ml MARIE CADET MD Jan 05, 2017 11:16
[2017-01-05] MEDS: ACETAMINOPHEN 325 MG TABLET. PO SCH (14:18)
[2017-01-05] MEDS: diphenhydrAMINE HCL 25 MG CAPSULE PO SCH (14:18)
[2017-01-05] MEDS: AMPHOTERICIN B LIPOSOME IV SCH (14:52)
[2017-01-05] MEDS: DEXTROSE 5% IV SCH (14:52)
[2017-01-05 15:00] VITALS: BP 130/70
[2017-01-05 19:50] VITALS: BP 110/71
[2017-01-05 23:05] VITALS: BP 103/69
[2017-01-05] MEDS: ACETAMINOPHEN 325 MG TABLET. PO PRN (23:28)
[2017-01-06] VITALS (7 sets, daily range): BP systolic 104–122; BP diastolic 60–78
[2017-01-06] MEDS: FLUCYTOSINE 500 MG PO SCH ×4 (01:57→20:36)
[2017-01-06] MEDS: IV NORMAL SALINE 1000ML BAG 1,000 ML IV SCH ×3 (01:58→20:38)
[2017-01-06 05:01] LABS: BASO # 0.1 x10^3/uL (0.0-0.2); BASO % 2 % (0-3); EOS % 6 % (0-3); HEMATOCRIT 26.7 % (39.0-53.0); HEMOGLOBIN 9.7 g/dL (13.0-17.5); LYMPH # 1.1 x10^3/uL (1.0-4.8); LYMPH % 27 % (24-48); MEAN CORPUSCULAR HEMOGLOBIN 32 pg (25-35); MEAN CORPUSCULAR HGB CONC 36 g/dL (31-37); MEAN CORPUSCULAR VOLUME 89 fL (79-100); MONO % 18 % (0-9); NEUT % 48 % (31-73); PLATELET COUNT 96 x10^3/uL (140-400); RED BLOOD COUNT 3.02 x10^6/uL (4.30-5.70); WHITE BLOOD COUNT 4.1 x10^3/uL (4.0-11.0)
[2017-01-06 05:33] LABS: ALBUMIN 1.7 g/dL (3.4-5.0); CALCIUM 8.8 mg/dL (8.5-10.1); CREATININE 1.2 mg/dL (0.7-1.3); GFR 65.8; PHOSPHORUS 4.5 mg/dL (2.6-4.7); POTASSIUM 3.8 mmol/L (3.5-5.1)
[2017-01-06] MEDS: SMZ/TMP 800/160MG TABLET. PO SCH (09:01)
[2017-01-06] MEDS: [UNRECOGNIZED DRUG - OTHER] PO SCH (09:02)
[2017-01-06] MEDS: valACYclovir 500 MG TABLET. PO SCH ×2 (09:02→20:36)
[2017-01-06] MEDS: MAGNESIUM SULFATE 2GM 50 ML IV SCH (09:03)
--- NOTE | 2017-01-06 09:24 | PDOC ---
PULMONARY PROGRESS NOTES Subjective much better Vitals Vital Signs Date Time Temp Pulse Resp B/P Pulse Ox O2 Delivery O2 Flow Rate FiO2 01/06/17 07:00 98.1 80 18 115/73 98 Room Air 98.1 General: Alert, No acute distress Lungs: Clear Abdomen: Soft Neuro Exam: Alert Extremities: No Edema Skin: Warm Labs Laboratory Tests Test 01/05/17 05:05 01/05/17 10:45 01/06/17 04:45 White Blood Count 4.6x10^3/uL (4.0-11.0) 4.1x10^3/uL (4.0-11.0) Red Blood Count 3.21x10^6/uL (4.30-5.70) 3.02x10^6/uL (4.30-5.70) Hemoglobin 10.1g/dL (13.0-17.5) 9.7g/dL (13.0-17.5) Hematocrit 28.2% (39.0-53.0) 26.7% (39.0-53.0) Mean Corpuscular Volume 88fL (79-100) 89fL (79-100) Mean Corpuscular Hemoglobin 31pg (25-35) 32pg (25-35) Mean Corpuscular Hemoglobin Concent 36g/dL (31-37) 36g/dL (31-37) Red Cell Distribution Width 15.5% (11.5-14.5) 15.0% (11.5-14.5) Platelet Count 100x10^3/uL (140-400) 96x10^3/uL (140-400) Neutrophils (%) (Auto) 46% (31-73) 48% (31-73) Lymphocytes (%) (Auto) 28% (24-48) 27% (24-48) Monocytes (%) (Auto) 19% (0-9) 18% (0-9) Eosinophils (%) (Auto) 7% (0-3) 6% (0-3) Basophils (%) (Auto) 1% (0-3) 2% (0-3) Neutrophils # (Auto) 2.1x10^3uL (1.8-7.7) 2.0x10^3uL (1.8-7.7) Lymphocytes # (Auto) 1.3x10^3/uL (1.0-4.8) 1.1x10^3/uL (1.0-4.8) Monocytes # (Auto) 0.9x10^3/uL (0.0-1.1) 0.7x10^3/uL (0.0-1.1) Eosinophils # (Auto) 0.3x10^3/uL (0.0-0.7) 0.2x10^3/uL (0.0-0.7) Basophils # (Auto) 0.0x10^3/uL (0.0-0.2) 0.1x10^3/uL (0.0-0.2) Sodium Level 130mmol/L (136-145) 134mmol/L (136-145) Potassium Level 3.8mmol/L (3.5-5.1) 3.8mmol/L (3.5-5.1) Chloride Level 99mmol/L (98-107) 103mmol/L (98-107) Carbon Dioxide Level 23mmol/L (21-32) 23mmol/L (21-32) Anion Gap 8 (6-14) 8 (6-14) Blood Urea Nitrogen 17mg/dL (8-26) 15mg/dL (8-26) Creatinine 1.3mg/dL (0.7-1.3) 1.2mg/dL (0.7-1.3) Estimated GFR (Cockcroft-Gault) 60.0 65.8 Glucose Level 98mg/dL (70-99) 107mg/dL (70-99) Calcium Level 8.5mg/dL (8.5-10.1) 8.8mg/dL (8.5-10.1) Magnesium Level 1.7mg/dL (1.8-2.4) Urine Sodium 74mmol/L (Not Estab.) Urine Potassium 21.7mmol/L (Not Estab.) Urine Chloride 62mmol/L (Not Estab.) Phosphorus Level 4.5mg/dL (2.6-4.7) Albumin 1.7g/dL (3.4-5.0) Thyroid Stimulating Hormone (TSH) 1.760uIU/mL (0.358-3.74) Laboratory Tests Test 01/05/17 10:45 01/06/17 04:45 Urine Sodium 74mmol/L (Not Estab.) Urine Potassium 21.7mmol/L (Not Estab.) Urine Chloride 62mmol/L (Not Estab.) White Blood Count 4.1x10^3/uL (4.0-11.0) Red Blood Count 3.02x10^6/uL (4.30-5.70) Hemoglobin 9.7g/dL (13.0-17.5) Hematocrit 26.7% (39.0-53.0) Mean Corpuscular Volume 89fL (79-100) Mean Corpuscular Hemoglobin 32pg (25-35) Mean Corpuscular Hemoglobin Concent 36g/dL (31-37) Red Cell Distribution Width 15.0% (11.5-14.5) Platelet Count 96x10^3/uL (140-400) Neutrophils (%) (Auto) 48% (31-73) Lymphocytes (%) (Auto) 27% (24-48) Monocytes (%) (Auto) 18% (0-9) Eosinophils (%) (Auto) 6% (0-3) Basophils (%) (Auto) 2% (0-3) Neutrophils # (Auto) 2.0x10^3uL (1.8-7.7) Lymphocytes # (Auto) 1.1x10^3/uL (1.0-4.8) Monocytes # (Auto) 0.7x10^3/uL (0.0-1.1) Eosinophils # (Auto) 0.2x10^3/uL (0.0-0.7) Basophils # (Auto) 0.1x10^3/uL (0.0-0.2) Sodium Level 134mmol/L (136-145) Potassium Level 3.8mmol/L (3.5-5.1) Chloride Level 103mmol/L (98-107) Carbon Dioxide Level 23mmol/L (21-32) Anion Gap 8 (6-14) Blood Urea Nitrogen 15mg/dL (8-26) Creatinine 1.2mg/dL (0.7-1.3) Estimated GFR (Cockcroft-Gault) 65.8 Glucose Level 107mg/dL (70-99) Calcium Level 8.8mg/dL (8.5-10.1) Phosphorus Level 4.5mg/dL (2.6-4.7) Albumin 1.7g/dL (3.4-5.0) Thyroid Stimulating Hormone (TSH) 1.760uIU/mL (0.358-3.74) Medications Active Scripts Medications Dose Route/Sig Days Date Category Valacyclovir (Valacyclovir Hcl) 1,000 Mg Tablet 1,000 Mg PO BID 01/01/17 Reported [Azithromycin] 1,200 Mg PO WEEKLY 01/01/17 Reported Genvoya Tablet (Elviteg/Aline/Emtric/Tenofo Ala) 1 Each Tablet 1 Each PO DAILY 01/01/17 Reported [Iron] 27 Mg PO DAILY 01/01/17 Reported [Collagen Support] 1,500 Mcg PO DAILY 01/01/17 Reported Impression . 1. Abnormal chest x-ray with diffuse tiny micro nodules in a patient, who has acquired immune deficiency syndrome and has a CD4 count of 56. Now presented with severe headache, high grade fever. The differential diagnoses would include: a). Cryptococcal meningitis (confirmed yeast on LP) b). unlikely TB meningitis., symptoms resolved with Ampho c). Less likely pneumocystis carini 2. Abnormal chest x-ray and CT chest with tiny micronodular infiltrates throughout, could be cryptococcal pneumonia ,less likely miliary TB. Also mass like consolidation TASHA , fungal pneumonia most likely,? neoplasm 3. Acquired immune deficiency syndrome. 4. Headache/high fevers due to meningitis, improved Plan . 1. Continue with broad-spectrum antibiotics/anti-fungals f/u cryptococcal titres and TB spot test, much improved 2. Noncontrast CT chest reviewed, repeat ct chest in 4 weeks as OP 3. Follow all the culture results. 4. Follow Infectious Disease recommendations. ok with dc home with OP Antibiotics NORBERTO ALLEN MD Jan 06, 2017 09:23
[2017-01-06 11:21] LABS: CRYPTOCOCCUS AG Positive (Negative)
--- NOTE | 2017-01-06 12:02 | PDOC ---
Infectious Disease Note Subjective Subjective "I forget how it feels to feel good." Slept good, well rested Denies MANDUJANO, dizziness, confusion or visual changes ROS ROS GEN: Denies fevers, chills, sweats HEENT: Denies blurred vision, sore throat CV: Denies chest pain RESP: Denies shortness of air, cough GI: Denies n/v/d NEURO: Denies confusion, dizziness MSK: Denies weakness, joint pain/swelling Vital Sign Vital Signs Vital Signs Date Time Temp Pulse Resp B/P Pulse Ox O2 Delivery O2 Flow Rate FiO2 01/06/17 11:18 98.1 85 18 109/67 100 Room Air 98.1 Physical Exam PHYSICAL EXAM GENERAL: NAD, Alert HEENT: PERRL, OC/OP -dentures NECK: Supple, no JVD, no LN LUNGS: Clear HEART: S1S2, no gallop, no murmur ABD: Soft, NT, no organomegaly, no rebound EXT: No edema, no cyanosis RINKMAN: Alert, 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, no focal neurologic deficit SKIN: No rash IV: PICC clean Labs Lab Laboratory Tests Test 01/06/17 04:45 White Blood Count 4.1x10^3/uL (4.0-11.0) Red Blood Count 3.02x10^6/uL (4.30-5.70) Hemoglobin 9.7g/dL (13.0-17.5) Hematocrit 26.7% (39.0-53.0) Mean Corpuscular Volume 89fL (79-100) Mean Corpuscular Hemoglobin 32pg (25-35) Mean Corpuscular Hemoglobin Concent 36g/dL (31-37) Red Cell Distribution Width 15.0% (11.5-14.5) Platelet Count 96x10^3/uL (140-400) Neutrophils (%) (Auto) 48% (31-73) Lymphocytes (%) (Auto) 27% (24-48) Monocytes (%) (Auto) 18% (0-9) Eosinophils (%) (Auto) 6% (0-3) Basophils (%) (Auto) 2% (0-3) Neutrophils # (Auto) 2.0x10^3uL (1.8-7.7) Lymphocytes # (Auto) 1.1x10^3/uL (1.0-4.8) Monocytes # (Auto) 0.7x10^3/uL (0.0-1.1) Eosinophils # (Auto) 0.2x10^3/uL (0.0-0.7) Basophils # (Auto) 0.1x10^3/uL (0.0-0.2) Sodium Level 134mmol/L (136-145) Potassium Level 3.8mmol/L (3.5-5.1) Chloride Level 103mmol/L (98-107) Carbon Dioxide Level 23mmol/L (21-32) Anion Gap 8 (6-14) Blood Urea Nitrogen 15mg/dL (8-26) Creatinine 1.2mg/dL (0.7-1.3) Estimated GFR (Cockcroft-Gault) 65.8 Glucose Level 107mg/dL (70-99) Calcium Level 8.8mg/dL (8.5-10.1) Phosphorus Level 4.5mg/dL (2.6-4.7) Albumin 1.7g/dL (3.4-5.0) Thyroid Stimulating Hormone (TSH) 1.760uIU/mL (0.358-3.74) Objective Assessment Fever better Hyponatremia Meningitis -Cryptococcus. MANDUJANO better Titier 1: 2560 Sinus congetion - CT neg. ? septum deviation AIDS VL 91,979 Sep and CD Oct. On Genvoya/Bactrim/Weekly Azithromycin. VDRL - neg in CSF. TB Spot -neg Abnormal CXR H/o Hep B H/o Herpes oralis Plan Plan of Care Discont Rocephin Bactrim/Valtrex. Weekly azithromycin Cont Ambisome/Flucytosine. Premed with Benadryl and Tylenol prior to Ambisome will change to QOD after 01/07 dose Cont Genvoya F/u CSF crypto, HSV F/u Labs/cults Social service eval Will need to monitor and replace electrolytes - K, Mg/ Phos with Ambisome OMI HANSON MD Jan 06, 2017 12:02
--- NOTE | 2017-01-06 14:03 | PDOC ---
PROGRESS NOTES Chief Complaint Chief Complaint Hyponatremia resolved. Meningitis -Cryptococcus. Alvin 1: 2560 ? Chronic sinusitis, H/o Hep B H/o Herpes oralis Thrombocytopenia Plan Abx per ID -Bactrim/Valtrex. Weekly azithromycin Monitor electrolytes. Cont Ambisome/Flucytosine. 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 History of Present Illness History of Present Illness no fever upset mood worried about his job no acute events Vitals Vitals Vital Signs Date Time Temp Pulse Resp B/P Pulse Ox O2 Delivery O2 Flow Rate FiO2 01/06/17 11:18 98.1 85 18 109/67 100 Room Air 98.1 Physical Exam General: Alert, Oriented X3, No acute distress Heart: Regular rate, Normal S1, Normal S2 Lungs: Clear Abdomen: Normal bowel sounds, No tenderness Extremities: No clubbing Skin: No breakdown Labs LABS Laboratory Tests Test 01/06/17 04:45 White Blood Count 4.1x10^3/uL (4.0-11.0) Red Blood Count 3.02x10^6/uL (4.30-5.70) Hemoglobin 9.7g/dL (13.0-17.5) Hematocrit 26.7% (39.0-53.0) Mean Corpuscular Volume 89fL (79-100) Mean Corpuscular Hemoglobin 32pg (25-35) Mean Corpuscular Hemoglobin Concent 36g/dL (31-37) Red Cell Distribution Width 15.0% (11.5-14.5) Platelet Count 96x10^3/uL (140-400) Neutrophils (%) (Auto) 48% (31-73) Lymphocytes (%) (Auto) 27% (24-48) Monocytes (%) (Auto) 18% (0-9) Eosinophils (%) (Auto) 6% (0-3) Basophils (%) (Auto) 2% (0-3) Neutrophils # (Auto) 2.0x10^3uL (1.8-7.7) Lymphocytes # (Auto) 1.1x10^3/uL (1.0-4.8) Monocytes # (Auto) 0.7x10^3/uL (0.0-1.1) Eosinophils # (Auto) 0.2x10^3/uL (0.0-0.7) Basophils # (Auto) 0.1x10^3/uL (0.0-0.2) Sodium Level 134mmol/L (136-145) Potassium Level 3.8mmol/L (3.5-5.1) Chloride Level 103mmol/L (98-107) Carbon Dioxide Level 23mmol/L (21-32) Anion Gap 8 (6-14) Blood Urea Nitrogen 15mg/dL (8-26) Creatinine 1.2mg/dL (0.7-1.3) Estimated GFR (Cockcroft-Gault) 65.8 Glucose Level 107mg/dL (70-99) Calcium Level 8.8mg/dL (8.5-10.1) Phosphorus Level 4.5mg/dL (2.6-4.7) Albumin 1.7g/dL (3.4-5.0) Thyroid Stimulating Hormone (TSH) 1.760uIU/mL (0.358-3.74) Assessment and Plan Assessmemt and Plan Problems Medical Problems: (1) Fever Status: Acute (2) Headache Status: Acute (3) Immunocompromised Status: Acute Problems: Comment Review of Relevant I have reviewed the following items garland (where applicable) has been applied. Labs Laboratory Tests Test 01/05/17 05:05 01/05/17 10:45 01/06/17 04:45 White Blood Count 4.6x10^3/uL (4.0-11.0) 4.1x10^3/uL (4.0-11.0) Red Blood Count 3.21x10^6/uL (4.30-5.70) 3.02x10^6/uL (4.30-5.70) Hemoglobin 10.1g/dL (13.0-17.5) 9.7g/dL (13.0-17.5) Hematocrit 28.2% (39.0-53.0) 26.7% (39.0-53.0) Mean Corpuscular Volume 88fL (79-100) 89fL (79-100) Mean Corpuscular Hemoglobin 31pg (25-35) 32pg (25-35) Mean Corpuscular Hemoglobin Concent 36g/dL (31-37) 36g/dL (31-37) Red Cell Distribution Width 15.5% (11.5-14.5) 15.0% (11.5-14.5) Platelet Count 100x10^3/uL (140-400) 96x10^3/uL (140-400) Neutrophils (%) (Auto) 46% (31-73) 48% (31-73) Lymphocytes (%) (Auto) 28% (24-48) 27% (24-48) Monocytes (%) (Auto) 19% (0-9) 18% (0-9) Eosinophils (%) (Auto) 7% (0-3) 6% (0-3) Basophils (%) (Auto) 1% (0-3) 2% (0-3) Neutrophils # (Auto) 2.1x10^3uL (1.8-7.7) 2.0x10^3uL (1.8-7.7) Lymphocytes # (Auto) 1.3x10^3/uL (1.0-4.8) 1.1x10^3/uL (1.0-4.8) Monocytes # (Auto) 0.9x10^3/uL (0.0-1.1) 0.7x10^3/uL (0.0-1.1) Eosinophils # (Auto) 0.3x10^3/uL (0.0-0.7) 0.2x10^3/uL (0.0-0.7) Basophils # (Auto) 0.0x10^3/uL (0.0-0.2) 0.1x10^3/uL (0.0-0.2) Sodium Level 130mmol/L (136-145) 134mmol/L (136-145) Potassium Level 3.8mmol/L (3.5-5.1) 3.8mmol/L (3.5-5.1) Chloride Level 99mmol/L (98-107) 103mmol/L (98-107) Carbon Dioxide Level 23mmol/L (21-32) 23mmol/L (21-32) Anion Gap 8 (6-14) 8 (6-14) Blood Urea Nitrogen 17mg/dL (8-26) 15mg/dL (8-26) Creatinine 1.3mg/dL (0.7-1.3) 1.2mg/dL (0.7-1.3) Estimated GFR (Cockcroft-Gault) 60.0 65.8 Glucose Level 98mg/dL (70-99) 107mg/dL (70-99) Calcium Level 8.5mg/dL (8.5-10.1) 8.8mg/dL (8.5-10.1) Magnesium Level 1.7mg/dL (1.8-2.4) Urine Sodium 74mmol/L (Not Estab.) Urine Potassium 21.7mmol/L (Not Estab.) Urine Chloride 62mmol/L (Not Estab.) Phosphorus Level 4.5mg/dL (2.6-4.7) Albumin 1.7g/dL (3.4-5.0) Thyroid Stimulating Hormone (TSH) 1.760uIU/mL (0.358-3.74) Laboratory Tests Test 01/06/17 04:45 White Blood Count 4.1x10^3/uL (4.0-11.0) Red Blood Count 3.02x10^6/uL (4.30-5.70) Hemoglobin 9.7g/dL (13.0-17.5) Hematocrit 26.7% (39.0-53.0) Mean Corpuscular Volume 89fL (79-100) Mean Corpuscular Hemoglobin 32pg (25-35) Mean Corpuscular Hemoglobin Concent 36g/dL (31-37) Red Cell Distribution Width 15.0% (11.5-14.5) Platelet Count 96x10^3/uL (140-400) Neutrophils (%) (Auto) 48% (31-73) Lymphocytes (%) (Auto) 27% (24-48) Monocytes (%) (Auto) 18% (0-9) Eosinophils (%) (Auto) 6% (0-3) Basophils (%) (Auto) 2% (0-3) Neutrophils # (Auto) 2.0x10^3uL (1.8-7.7) Lymphocytes # (Auto) 1.1x10^3/uL (1.0-4.8) Monocytes # (Auto) 0.7x10^3/uL (0.0-1.1) Eosinophils # (Auto) 0.2x10^3/uL (0.0-0.7) Basophils # (Auto) 0.1x10^3/uL (0.0-0.2) Sodium Level 134mmol/L (136-145) Potassium Level 3.8mmol/L (3.5-5.1) Chloride Level 103mmol/L (98-107) Carbon Dioxide Level 23mmol/L (21-32) Anion Gap 8 (6-14) Blood Urea Nitrogen 15mg/dL (8-26) Creatinine 1.2mg/dL (0.7-1.3) Estimated GFR (Cockcroft-Gault) 65.8 Glucose Level 107mg/dL (70-99) Calcium Level 8.8mg/dL (8.5-10.1) Phosphorus Level 4.5mg/dL (2.6-4.7) Albumin 1.7g/dL (3.4-5.0) Thyroid Stimulating Hormone (TSH) 1.760uIU/mL (0.358-3.74) Microbiology 12/31/16 Blood Culture - Final, Complete NO GROWTH AFTER 5 DAYS 01/01/17 AFB Specimen Processing Tissue - Final, Resulted 01/01/17 Acid Fast Bacilli Culture, Resulted Pending 01/01/17 Gram Stain - Final, Resulted Medications Current Medications Sodium Chloride (Iv Sodium Chloride 0.9% 1000ml Bag) 1,000 ml @ 1,000 mls/hr 1X ONCE IV Last administered on 12/31/16 22:00; Start 12/31/16 at 22:00; Stop 12/31/16 at 22:59; Status DC Morphine Sulfate 4 mg 1X ONCE IV Last administered on 12/31/16 22:02; Start 12/31/16 at 22:00; Stop 12/31/16 at 22:01; Status DC Lorazepam (Ativan) 2 mg STK-MED ONCE .ROUTE ; Start 12/31/16 at 22:31; Stop at 22:32; Status DC Lorazepam (Ativan) 1 mg 1X STAT IV Last administered on 12/31/16 22:35; Start 12/31/16 at 22:32; Stop 12/31/16 at 22:38; Status DC Acetaminophen (Tylenol) 1,000 mg 1X ONCE PO Last administered on 12/31/16 23: 11; Start 12/31/16 at 23:15; Stop 12/31/16 at 23:16; Status DC Hydromorphone HCl (Dilaudid) 0.5 mg 1X ONCE IV Last administered on 12/31/16 23:11; Start 12/31/16 at 23:15; Stop 12/31/16 at 23:16; Status DC Vancomycin HCl 1 each 1 each PRN DAILY PRN MC SEE COMMENTS Last administered on 01/01/17 02:42; Start 12/31/16 at 23:15; Stop 01/01/17 at 13:28; Status DC Ceftriaxone Sodium 2 gm/ Sodium Chloride 100 ml @ 200 mls/hr 1X ONCE IV Last administered on 12/31/16 23:30; Start 12/31/16 at 23:30; Stop 12/31/16 at 23:59 ; Status DC Vancomycin HCl 2 gm/Sodium Chloride 500 ml @ 250 mls/hr 1X ONCE IV Last administered on 01/01/17 00:00; Start 01/01/17 at 00:00; Stop 01/01/17 at 01:59 ; Status DC Fluconazole/ Sodium Chloride (Diflucan 400mg/ 200ml Premix) 200 ml @ 100 mls/ hr 1X ONCE IV Last administered on 01/01/17 03:12; Start 12/31/16 at 23:30; Stop 01/01/17 at 01:29; Status DC Ondansetron HCl (Zofran) 4 mg PRN Q8HRS PRN IV NAUSEA/VOMITING; Start 01/01/17 at 00:30; Stop 01/02/17 at 00:29; Status DC Morphine Sulfate 4 mg 4 mg PRN Q2HR PRN IV SEVERE PAIN Last administered on 20:44; Start 01/01/17 at 00:30; Stop 01/02/17 at 00:29; Status DC Sodium Chloride (Iv Sodium Chloride 0.9% 1000ml Bag) 1,000 ml @ 100 mls/hr Q10H IV Last administered on 01/01/17 02:07; Start 01/01/17 at 00:28; Stop at 09:20; Status DC Acetaminophen 650 mg 650 mg PRN Q4HRS PRN PO FEVER Last administered on 23:35; Start 01/01/17 at 00:30; Stop 01/02/17 at 00:29; Status DC Vancomycin HCl/ Sodium Chloride (Iv Sodium Chloride 0.9% 500ml Bag) 500 ml @ 250 mls/hr Q8H IV Last administered on 01/01/17 08:13; Start 01/01/17 at 08:00 ; Stop 01/01/17 at 13:28; Status DC Vancomycin HCl 1 each 1X ONCE MC ; Start 01/01/17 at 23:30; Stop 01/01/17 at 23 :30; Status DC Elvitegravir/ Cobicis/Emtricit/ Tenof (Genvoya) 1 tab DAILY PO Last administered on 01/06/17 09:02; Start 01/02/17 at 11:00 Valacyclovir HCl (Valtrex) 1,000 mg BID PO Last administered on 01/06/17 09:02 ; Start 01/01/17 at 21:00 Non-Formulary Medication 1,200 mg WEEKLY PO ; Start 01/08/17 at 09:00; Stop at 09:00; Status DC Non-Formulary Medication 1500 mcg 1,500 mcg DAILY PO ; Start 01/02/17 at 09:00; Status UNV Sodium Chloride (Iv Sodium Chloride 0.9% 1000ml Bag) 1,000 ml @ 150 mls/hr Q6H40M IV ; Start 01/01/17 at 09:05; Stop 01/01/17 at 09:34; Status DC Saliva Substitute 2 spray 2 spray PRN Q15MIN PRN PO DRY MOUTH; Start 01/01/17 at 09:15 Ceftriaxone Sodium 2 gm/ Sodium Chloride 100 ml @ 200 mls/hr Q12HR IV Last administered on 01/05/17 20:47; Start 01/01/17 at 21:00; Stop 01/06/17 at 11:59 ; Status DC Ampicillin Sodium 2 gm/Sodium Chloride 100 ml @ 200 mls/hr Q4HRS IV Last administered on 01/01/17 13:09; Start 01/01/17 at 12:00; Stop 01/01/17 at 13:28 ; Status DC Fluconazole/ Sodium Chloride (Diflucan 400mg/ 200ml Premix) 200 ml @ 100 mls/ hr Q24H IV ; Start 01/01/17 at 12:00; Stop 01/01/17 at 13:28; Status DC Trimethoprim/ Sulfamethoxazole (Bactrim Ds) 1 tab DAILY PO Last administered on 01/06/17 09:01; Start 01/01/17 at 09:00 Azithromycin 500 mg 500 mg DAILY PO Last administered on 01/03/17 08:46; Start 01/01/17 at 11:30; Stop 01/03/17 at 08:48; Status DC Amphotericin B/ Dextrose (Ambisome) 500 ml @ 250 mls/hr Q24H IV Last administered on 01/05/17 14:52; Start 01/01/17 at 14:00 Flucytosine (Ancobon) 2,500 mg Q6H PO Last administered on 01/06/17 09:02; Start 01/01/17 at 14:00 Morphine Sulfate 4 mg PRN Q2HR PRN IV PAIN Last administered on 01/04/17 14:23 ; Start 01/02/17 at 08:00 Acetaminophen (Tylenol) 650 mg PRN Q6HRS PRN PO fever or pain Last administered on 01/05/17 23:28; Start 01/02/17 at 08:00 Sodium Chloride (Saline Mist Nasal) 1 fab PRN Q1HR PRN NS NASAL CONGESTION; Start 01/02/17 at 10:45 Diphenhydramine HCl (Benadryl) 25 mg DAILY PO Last administered on 01/02/17 12 :43; Start 01/02/17 at 13:30; Stop 01/02/17 at 19:56; Status DC Acetaminophen (Tylenol) 650 mg DAILY PO Last administered on 01/02/17 12:43; Start 01/02/17 at 13:30; Stop 01/02/17 at 19:55; Status DC Flucytosine (Ancobon) 2,500 mg Q6HRS PO ; Start 01/02/17 at 18:00; Status UNV Acetaminophen (Tylenol) 650 mg Q24H PO Last administered on 01/05/17 14:18; Start 01/03/17 at 13:30 Diphenhydramine HCl (Benadryl) 25 mg Q24H PO Last administered on 01/05/17 14: 18; Start 01/03/17 at 13:00 Azithromycin 500 mg 500 mg DAILY PO Last administered on 01/03/17 09:00; Start 01/03/17 at 09:00; Stop 01/03/17 at 13:00; Status DC Magnesium Sulfate/ Dextrose 50 ml @ 25 mls/hr 1X ONCE IV Last administered on 01/03/17 10:47; Start 01/03/17 at 09:30; Stop 01/03/17 at 11:29; Status DC Sodium Phosphate 20 mmol/Dextrose 256.6667 ml @ 64.167 m... 1X ONCE IV Last administered on 01/03/17 10:47; Start 01/03/17 at 09:30; Stop 01/03/17 at 13:29 ; Status DC Sodium Chloride 1,000 ml @ 125 mls/hr Q8H IV Last administered on 01/06/17 12 :26; Start 01/04/17 at 09:00 Magnesium Sulfate/ Dextrose 100 ml @ 25 mls/hr 1X ONCE IV Last administered on 01/04/17 10:48; Start 01/04/17 at 09:30; Stop 01/04/17 at 13:29; Status DC Magnesium Sulfate/ Dextrose 100 ml @ 25 mls/hr 1X ONCE IV Last administered on 01/05/17 09:31; Start 01/05/17 at 09:30; Stop 01/05/17 at 13:29; Status DC Magnesium Sulfate/ Dextrose (Magnesium Sulfate PREMIX 2GM) 50 ml @ 25 mls/hr DAILY IV Last administered on 01/06/17 09:03; Start 01/06/17 at 09:00 Active Scripts Active Reported Valacyclovir (Valacyclovir Hcl) 1,000 Mg Tablet 1,000 Mg PO BID [Azithromycin] 1,200 Mg PO WEEKLY Genvoya Tablet (Elviteg/Aline/Emtric/Tenofo Ala) 1 Each Tablet 1 Each PO DAILY [Iron] 27 Mg PO DAILY [Collagen Support] 1,500 Mcg PO DAILY Vitals/I & O Vital Sign - Last 24 Hours 01/05/17 01/05/17 01/05/17 01/05/17 15:00 19:50 23:05 23:33 Temp 99.0 98.9 101.2 99.1 99.0 98.9 101.2 99.1 Pulse 69 81 92 Resp 16 16 20 B/P 130/70 110/71 103/69 Pulse Ox 98 97 99 O2 Delivery Room Air Room Air Room Air 01/06/17 01/06/17 01/06/17 03:15 07:00 11:18 Temp 98.6 98.1 98.1 98.6 98.1 98.1 Pulse 79 80 85 Resp 16 18 18 B/P 104/60 115/73 109/67 Pulse Ox 99 98 100 O2 Delivery Room Air Room Air Room Air Intake and Output 01/05/17 01/05/17 01/06/17 15:00 23:00 07:00 Intake Total 920 ml 1700 ml Output Total 1500 ml 1000 ml 3650 ml Balance -580 ml 700 ml -3650 ml MARTA GALLEGOS MD Jan 06, 2017 14:03
[2017-01-06] MEDS: diphenhydrAMINE HCL 25 MG CAPSULE PO SCH (14:57)
[2017-01-06] MEDS: ACETAMINOPHEN 325 MG TABLET. PO SCH (14:57)
[2017-01-06] MEDS: DEXTROSE 5% IV SCH (15:42)
[2017-01-06] MEDS: AMPHOTERICIN B LIPOSOME IV SCH (15:42)
--- NOTE | 2017-01-06 15:46 | PDOC ---
PROGRESS NOTES Assessment Assessment IMPRESSION: Meningitis, cryptococcus Fever Headache HIV HBV Hyponatremia RECOMMENDATIONS/PLAN: Continue ID treatment. Treat medical diseases. FU with PCP and ID. SUBJECTIVE: Feeling better. OBJECTIVE: No focalized motor or sensory deficits. 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 MEDICATIONS: Refer to MAR REVIEW OF SYSTEMS: Constitutional: No malnutrition, weight loss, cachexia. Head: No recent traumatic brain or head injury. Skin: No edema, or rash. Ear: No infection, tinnitus. Eyes: No vision loss, or diplopia. Nose: No bleeding or purulent discharges. Hearing: No hearing decrease. Neck: No injury. Cardiac: No KS, arrhythmia Pulmonary: No COPD. GI: No GI Ulcer, GI bleeding Urinary/genital: No dysuria, incontinence, urinary retention. Endocrine: No cousin face, craniofacial dysmorphism, polydactyly. Skeletomuscular: No muscular atrophy, deformity, generalized weakness. Neurological: see HP. Psychiatric: Denies drug use/abuse. Otherwise, not [id number] review of systems. PHYSICAL EXAMINATION: General appearance in no acute distress. HEENT: Normocephalic and nontraumatic. Eyes, nose, ears, and throat are unremarkable. Hearing decrease. Neck is supple. No lymphadenopathy. No bruits are heard over the carotid artery. No Crepitus. Cardiovascular: S1, S2, regular rate and rhythm. Pulmonary: Clear to auscultation bilaterally. Abdomen: Bowel sounds are positive. Extremities: No rash, lesions, or edema. No restriction of range of motion NEUROLOGICAL EXAMINATION: Drowsiness. Oriented to time, place and person. PERRL. EOMI. CN: no focal findings. Neck: No resistance. Muscle tone: within normal. Muscle strength: 5 DTR: 2 Plantar reflex: Flexor response bilaterally Gait: not examined in bed. Sensory exam: no abnormal findings. No cerebellar signs elicited. F-T-N test accurate. Objective Objective Vital Signs Date Time Temp Pulse Resp B/P Pulse Ox O2 Delivery O2 Flow Rate FiO2 01/06/17 15:09 98.9 85 18 122/77 97 Room Air 98.9 Intake and Output 01/06/17 06:59 Intake Total 2620 ml Output Total 6150 ml Balance -3530 ml Intake Oral 1920 ml IV Total 700 ml Output Urine Total 6150 ml Vitals Signs Vitals VS - Last 72 Hours, by Label Date Time Temp Pulse Resp B/P Pulse Ox O2 Delivery O2 Flow Rate FiO2 01/06/17 15:09 98.9 85 18 122/77 97 Room Air 98.9 01/06/17 11:18 98.1 85 18 109/67 100 Room Air 98.1 01/06/17 07:00 98.1 80 18 115/73 98 Room Air 98.1 01/06/17 03:15 98.6 79 16 104/60 99 Room Air 98.6 01/05/17 23:33 99.1 99.1 01/05/17 23:05 101.2 92 20 103/69 99 Room Air 101.2 01/05/17 19:50 98.9 81 16 110/71 97 Room Air 98.9 01/05/17 15:00 99.0 69 16 130/70 98 Room Air 99.0 01/05/17 11:00 97.9 63 14 160/86 98 Room Air 97.9 01/05/17 08:00 Room Air 01/05/17 07:00 98.1 81 16 112/65 97 Room Air 98.1 Laboratory Laboratory Laboratory Tests Test 01/06/17 04:45 White Blood Count 4.1x10^3/uL (4.0-11.0) Red Blood Count 3.02x10^6/uL (4.30-5.70) Hemoglobin 9.7g/dL (13.0-17.5) Hematocrit 26.7% (39.0-53.0) Mean Corpuscular Volume 89fL (79-100) Mean Corpuscular Hemoglobin 32pg (25-35) Mean Corpuscular Hemoglobin Concent 36g/dL (31-37) Red Cell Distribution Width 15.0% (11.5-14.5) Platelet Count 96x10^3/uL (140-400) Neutrophils (%) (Auto) 48% (31-73) Lymphocytes (%) (Auto) 27% (24-48) Monocytes (%) (Auto) 18% (0-9) Eosinophils (%) (Auto) 6% (0-3) Basophils (%) (Auto) 2% (0-3) Neutrophils # (Auto) 2.0x10^3uL (1.8-7.7) Lymphocytes # (Auto) 1.1x10^3/uL (1.0-4.8) Monocytes # (Auto) 0.7x10^3/uL (0.0-1.1) Eosinophils # (Auto) 0.2x10^3/uL (0.0-0.7) Basophils # (Auto) 0.1x10^3/uL (0.0-0.2) Sodium Level 134mmol/L (136-145) Potassium Level 3.8mmol/L (3.5-5.1) Chloride Level 103mmol/L (98-107) Carbon Dioxide Level 23mmol/L (21-32) Anion Gap 8 (6-14) Blood Urea Nitrogen 15mg/dL (8-26) Creatinine 1.2mg/dL (0.7-1.3) Estimated GFR (Cockcroft-Gault) 65.8 Glucose Level 107mg/dL (70-99) Calcium Level 8.8mg/dL (8.5-10.1) Phosphorus Level 4.5mg/dL (2.6-4.7) Albumin 1.7g/dL (3.4-5.0) Thyroid Stimulating Hormone (TSH) 1.760uIU/mL (0.358-3.74) Microbiology 12/31/16 Blood Culture - Final, Complete NO GROWTH AFTER 5 DAYS 01/01/17 AFB Specimen Processing Tissue - Final, Resulted 01/01/17 Acid Fast Bacilli Culture, Resulted Pending 01/01/17 Gram Stain - Final, Resulted Medication Medications Current Medications Magnesium Sulfate/ Dextrose (Magnesium Sulfate PREMIX 2GM) 50 ml @ 25 mls/hr DAILY IV Last administered on 01/06/17t 09:03; Start 01/06/17 at 09:00 Non-Formulary Medication 1200 mg 1,200 mg WEEKLY PO ; Start 01/08/17 at 09:00; Stop 01/08/17 at 09:00; Status DC Comment Review of Relevant I have reviewed the following items garland (where applicable) has been applied. JAYASHREE BAEZ MD Jan 06, 2017 15:46
[2017-01-06] MEDS: MORPHINE SULFATE 4 MG/ML DISP.SYRIN. IV PRN (23:09)
[2017-01-06] MEDS: ACETAMINOPHEN 325 MG TABLET. PO PRN (23:17)
--- NOTE | 2017-01-06 23:52 | PDOC ---
Provider Note Provider Note RENAL F/U: HAIDERI. S : No new c/o O : Sleeping VSS. Afebrile. Somnolent. Neck : Supple Lungs : Decreased bases CVS : RRR Abd: Soft, benign in appearance. Portly Ext: Stable edema A/P: HYPONATREMIA HYPOKALEMIA DEHYDRATION. CRYPTO MENINGITIS Supportive care Labs better/stable. CPM. ASH CASIANO MD Jan 06, 2017 23:52
[2017-01-07] MEDS: FLUCYTOSINE 500 MG PO SCH ×4 (02:13→20:53)
[2017-01-07 02:56] VITALS: BP 103/56
[2017-01-07] MEDS: IV NORMAL SALINE 1000ML BAG 1,000 ML IV SCH ×2 (05:19→18:39)
[2017-01-07 07:00] VITALS: BP 112/64
[2017-01-07] MEDS: MAGNESIUM SULFATE 2GM 50 ML IV SCH (08:27)
[2017-01-07] MEDS: SMZ/TMP 800/160MG TABLET. PO SCH (08:28)
[2017-01-07] MEDS: valACYclovir 500 MG TABLET. PO SCH ×2 (08:28→20:53)
[2017-01-07] MEDS: [UNRECOGNIZED DRUG - OTHER] PO SCH (08:28)
--- NOTE | 2017-01-07 10:08 | PDOC ---
SUBJECTIVE ROS F/up Hyponatremia Doign and feeling better OBJECTIVE Vital Signs Vital Signs Date Time Temp Pulse Resp B/P Pulse Ox O2 Delivery O2 Flow Rate FiO2 01/07/17 08:00 Room Air 01/07/17 07:00 97.8 80 18 112/64 98 97.8 I & 0 Intake and Output 01/07/17 06:59 Intake Total 660 ml Output Total 4100 ml Balance -3440 ml Intake Oral 660 ml Output Urine Total 4100 ml PHYSICAL EXAM Physical Exam General Appearance: Awake: Alert Oriented x 3 Neck: No JVD or JVP Chest: CTA Jermaine Heart: S1 S2 Abdomen - Soft NTND Extremities - No Edema DIAGNOSIS/ASSESSMENT Assessment & Plan hypoNatremia - resolved with NS Low Mag - sliding scale as ordered Will be available prn Problems: COMMENT/RELEVANT DATA Meds Current Medications Medications (Trade) Dose Ordered Sig/Kalee Start Time Stop Time Status Last Admin Dose Admin Acetaminophen (Tylenol) 650 mg Q24H 01/03/17 13:30 01/06/17 14:57 650 MG Acetaminophen 650 mg 650 mg PRN Q4HRS PRN 01/01/17 00:30 01/02/17 00:29 DC 01/01/17 23:35 650 MG Amphotericin B/ Dextrose (Ambisome) 500 ml @ 250 mls/hr Q24H 01/01/17 14:00 01/06/17 15:42 250 MLS/HR Ampicillin Sodium 2 gm/Sodium Chloride 100 ml @ 200 mls/hr Q4HRS 01/01/17 12:00 01/01/17 13:28 DC 01/01/17 13:09 200 MLS/HR Azithromycin 500 mg 500 mg DAILY 01/03/17 09:00 01/03/17 13:00 DC 01/03/17 09:00 500 MG Ceftriaxone Sodium 2 gm/ Sodium Chloride 100 ml @ 200 mls/hr Q12HR 01/01/17 21:00 01/06/17 11:59 DC 01/05/17 20:47 200 MLS/HR Ceftriaxone Sodium/Sodium Chloride (Rocephin/Iv Sodium Chloride 0.9% 100ml) 100 ml @ 200 mls/hr 1X ONCE 12/31/16 23:30 12/31/16 23:59 DC 12/31/16 23:30 200 MLS/HR Diphenhydramine HCl (Benadryl) 25 mg Q24H 01/03/17 13:00 01/06/17 14:57 25 MG Elvitegravir/ Cobicis/Emtricit/ Tenof (Genvoya) 1 tab DAILY 01/02/17 11:00 01/07/17 08:28 1 TAB Fluconazole/ Sodium Chloride (Diflucan 400mg/ 200ml Premix) 200 ml @ 100 mls/hr Q24H 01/01/17 12:00 01/01/17 13:28 DC Flucytosine (Ancobon) 2,500 mg Q6HRS 01/02/17 18:00 UNV Hydromorphone HCl (Dilaudid) 0.5 mg 1X ONCE 12/31/16 23:15 12/31/16 23:16 DC 12/31/16 23:11 0.5 MG Lorazepam (Ativan) 1 mg 1X STAT 12/31/16 22:32 12/31/16 22:38 DC 12/31/16 22:35 1 MG Magnesium Sulfate/ Dextrose (Magnesium Sulfate PREMIX 2GM) 50 ml @ 25 mls/hr DAILY 01/06/17 09:00 01/07/17 08:27 25 MLS/HR Morphine Sulfate 4 mg PRN Q2HR PRN 01/02/17 08:00 01/06/17 23:09 4 MG Non-Formulary Medication 1,200 mg WEEKLY 01/08/17 09:00 01/08/17 09:00 DC Non-Formulary Medication 1500 mcg 1,500 mcg DAILY 01/02/17 09:00 UNV Ondansetron HCl (Zofran) 4 mg PRN Q8HRS PRN 01/01/17 00:30 01/02/17 00:29 DC Saliva Substitute 2 spray 2 spray PRN Q15MIN PRN 01/01/17 09:15 Sodium Chloride 1,000 ml @ 75 mls/hr [id number] 01/04/17 09:00 01/06/17 20:38 75 MLS/HR Sodium Chloride (Iv Sodium Chloride 0.9% 1000ml Bag) 1,000 ml @ 150 mls/hr Q6H40M 01/01/17 09:05 01/01/17 09:34 DC Sodium Chloride (Saline Mist Nasal) 1 fab PRN Q1HR PRN 01/02/17 10:45 Sodium Phosphate 20 mmol/Dextrose 256.6667 ml @ 64.167 m... 1X ONCE 01/03/17 09:30 01/03/17 13:29 DC 01/03/17 10:47 64.167 MLS/HR Trimethoprim/ Sulfamethoxazole 1 tab 1 tab DAILY 01/01/17 09:00 01/07/17 08:28 1 TAB Valacyclovir HCl (Valtrex) 1,000 mg BID 01/01/17 21:00 01/07/17 08:28 1,000 MG Vancomycin HCl 1 each 1X ONCE 01/01/17 23:30 01/01/17 23:30 DC Vancomycin HCl 1 each 1 each PRN DAILY PRN 12/31/16 23:15 01/01/17 13:28 DC 01/01/17 02:42 1 EACH Vancomycin HCl/ Sodium Chloride (Iv Sodium Chloride 0.9% 500ml Bag) 500 ml @ 250 mls/hr Q8H 01/01/17 08:00 01/01/17 13:28 DC 01/01/17 08:13 250 MLS/HR Lab Laboratory Tests Test 01/07/17 06:00 Magnesium Level 1.4mg/dL (1.8-2.4) TIFFANY DOMINGO MD Jan 07, 2017 10:08
--- NOTE | 2017-01-07 10:12 | PDOC ---
Infectious Disease Note Subjective Subjective Doing ok but lost his job Denies MANDUJANO, dizziness, confusion or visual changes ROS ROS GEN: Denies fevers, chills, sweats HEENT: Denies blurred vision, sore throat CV: Denies chest pain RESP: Denies shortness of air, cough GI: Denies n/v/d NEURO: Denies confusion, dizziness MSK: Denies weakness, joint pain/swelling Vital Sign Vital Signs Vital Signs Date Time Temp Pulse Resp B/P Pulse Ox O2 Delivery O2 Flow Rate FiO2 01/07/17 08:00 Room Air 01/07/17 07:00 97.8 80 18 112/64 98 97.8 Physical Exam PHYSICAL EXAM GENERAL: NAD, Alert HEENT: PERRL, OC/OP -dentures NECK: Supple, no JVD, no LN LUNGS: Clear HEART: S1S2, no gallop, no murmur ABD: Soft, NT, no organomegaly, no rebound EXT: No edema, 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 MANDUJANO better Titier 1: 2560 Sinus congetion - CT neg. ? septum deviation AIDS VL 91,979 Sep and CD Oct. On Genvoya/Bactrim/Weekly Azithromycin. VDRL - neg in CSF. TB Spot -neg Abnormal CXR H/o Hep B H/o Herpes oralis Plan Plan of Care Needs 3 more dose of Ambisome and can be outpatient starting 01/09, 01/11 and then 01/13 Cont daily Bactrim/Valtrex. Weekly azithromycin/Genvoya - has at home Cont Flucytosine with last dose 01/14. Needs outpatient labs Mg/BMP/phos F/u ID office next week [phone] Social service OMI Castelan MD Jan 07, 2017 10:12
[2017-01-07] MEDS ORDERED: MAGNESIUM SULFATE 2GM 50 ML IV PRN (10:15)
[2017-01-07 11:00] VITALS: BP 94/59
[2017-01-07 11:29] LABS: ALBUMIN 1.6 g/dL (3.4-5.0); CALCIUM 7.8 mg/dL (8.5-10.1); CREATININE 1.3 mg/dL (0.7-1.3); PHOSPHORUS 4.1 mg/dL (2.6-4.7); POTASSIUM 3.1 mmol/L (3.5-5.1)
[2017-01-07] MEDS ORDERED: MAGN400T3 PO (12:49)
[2017-01-07] MEDS: diphenhydrAMINE HCL 25 MG CAPSULE PO SCH (13:20)
[2017-01-07] MEDS: ACETAMINOPHEN 325 MG TABLET. PO SCH (13:21)
[2017-01-07 15:14] VITALS: BP 116/75
--- NOTE | 2017-01-07 15:22 | PDOC ---
PULMONARY PROGRESS NOTES Subjective much better Vitals Vital Signs Date Time Temp Pulse Resp B/P Pulse Ox O2 Delivery O2 Flow Rate FiO2 01/07/17 15:14 98.7 80 18 116/75 95 Room Air 98.7 General: Alert, No acute distress Lungs: Clear Abdomen: Soft Neuro Exam: Alert Extremities: No Edema Skin: Warm Labs Laboratory Tests Test 01/06/17 04:45 01/07/17 06:00 01/07/17 06:45 White Blood Count 4.1x10^3/uL (4.0-11.0) Red Blood Count 3.02x10^6/uL (4.30-5.70) Hemoglobin 9.7g/dL (13.0-17.5) Hematocrit 26.7% (39.0-53.0) Mean Corpuscular Volume 89fL (79-100) Mean Corpuscular Hemoglobin 32pg (25-35) Mean Corpuscular Hemoglobin Concent 36g/dL (31-37) Red Cell Distribution Width 15.0% (11.5-14.5) Platelet Count 96x10^3/uL (140-400) Neutrophils (%) (Auto) 48% (31-73) Lymphocytes (%) (Auto) 27% (24-48) Monocytes (%) (Auto) 18% (0-9) Eosinophils (%) (Auto) 6% (0-3) Basophils (%) (Auto) 2% (0-3) Neutrophils # (Auto) 2.0x10^3uL (1.8-7.7) Lymphocytes # (Auto) 1.1x10^3/uL (1.0-4.8) Monocytes # (Auto) 0.7x10^3/uL (0.0-1.1) Eosinophils # (Auto) 0.2x10^3/uL (0.0-0.7) Basophils # (Auto) 0.1x10^3/uL (0.0-0.2) Sodium Level 134mmol/L (136-145) 134mmol/L (136-145) Potassium Level 3.8mmol/L (3.5-5.1) 3.1mmol/L (3.5-5.1) Chloride Level 103mmol/L (98-107) 103mmol/L (98-107) Carbon Dioxide Level 23mmol/L (21-32) 23mmol/L (21-32) Anion Gap 8 (6-14) 8 (6-14) Blood Urea Nitrogen 15mg/dL (8-26) 16mg/dL (8-26) Creatinine 1.2mg/dL (0.7-1.3) 1.3mg/dL (0.7-1.3) Estimated GFR (Cockcroft-Gault) 65.8 60.0 Glucose Level 107mg/dL (70-99) 140mg/dL (70-99) Calcium Level 8.8mg/dL (8.5-10.1) 7.8mg/dL (8.5-10.1) Phosphorus Level 4.5mg/dL (2.6-4.7) 4.1mg/dL (2.6-4.7) Albumin 1.7g/dL (3.4-5.0) 1.6g/dL (3.4-5.0) Thyroid Stimulating Hormone (TSH) 1.760uIU/mL (0.358-3.74) Magnesium Level 1.4mg/dL (1.8-2.4) Laboratory Tests Test 01/07/17 06:00 01/07/17 06:45 Magnesium Level 1.4mg/dL (1.8-2.4) Sodium Level 134mmol/L (136-145) Potassium Level 3.1mmol/L (3.5-5.1) Chloride Level 103mmol/L (98-107) Carbon Dioxide Level 23mmol/L (21-32) Anion Gap 8 (6-14) Blood Urea Nitrogen 16mg/dL (8-26) Creatinine 1.3mg/dL (0.7-1.3) Estimated GFR (Cockcroft-Gault) 60.0 Glucose Level 140mg/dL (70-99) Calcium Level 7.8mg/dL (8.5-10.1) Phosphorus Level 4.1mg/dL (2.6-4.7) Albumin 1.6g/dL (3.4-5.0) Medications Active Scripts Medications Dose Route/Sig Days Date Category Valacyclovir (Valacyclovir Hcl) 1,000 Mg Tablet 1,000 Mg PO BID 01/01/17 Reported [Azithromycin] 1,200 Mg PO WEEKLY 01/01/17 Reported Genvoya Tablet (Elviteg/Aline/Emtric/Tenofo Ala) 1 Each Tablet 1 Each PO DAILY 01/01/17 Reported [Iron] 27 Mg PO DAILY 01/01/17 Reported [Collagen Support] 1,500 Mcg PO DAILY 01/01/17 Reported Impression . 1. Abnormal chest x-ray with diffuse tiny micro nodules in a patient, who has acquired immune deficiency syndrome and has a CD4 count of 56. 2. Abnormal chest x-ray and CT chest with tiny micronodular infiltrates throughout, could be cryptococcal pneumonia ,less likely miliary TB. Also mass like consolidation TASHA , fungal pneumonia most likely,? neoplasm 3. Acquired immune deficiency syndrome. 4. Headache/high fevers due to meningitis, improved Plan . pt to d/c today follow up with PACO BROWN MD Jan 07, 2017 15:22
--- NOTE | 2017-01-07 15:29 | PDOC ---
PROGRESS NOTES Assessment Assessment Meningitis, cryptococcus Fever Headache HIV HBV ? Hyponatremia. Elevated hepatic enzymes. RECOMMENDATIONS/PLAN: Continue ID treatment. Treat medical diseases. FU with PCP and ID. SUBJECTIVE: Feeling better. OBJECTIVE: No focalized motor or sensory deficits. 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 MEDICATIONS: Refer to MAR REVIEW OF SYSTEMS: Constitutional: No malnutrition, weight loss, cachexia. Head: No recent traumatic brain or head injury. Skin: No edema, or rash. Ear: No infection, tinnitus. Eyes: No vision loss, or diplopia. Nose: No bleeding or purulent discharges. Hearing: No hearing decrease. Neck: No injury. Cardiac: No [place], arrhythmia Pulmonary: No COPD. GI: No GI Ulcer, GI bleeding Urinary/genital: No dysuria, incontinence, urinary retention. Endocrine: No cousin face, craniofacial dysmorphism, polydactyly. Skeletomuscular: No muscular atrophy, deformity, generalized weakness. Neurological: see HP. Psychiatric: Denies drug use/abuse. Otherwise, not [id number] review of systems. PHYSICAL EXAMINATION: General appearance in no acute distress. HEENT: Normocephalic and nontraumatic. Eyes, nose, ears, and throat are unremarkable. Hearing decrease. Neck is supple. No lymphadenopathy. No bruits are heard over the carotid artery. No Crepitus. Cardiovascular: S1, S2, regular rate and rhythm. Pulmonary: Clear to auscultation bilaterally. Abdomen: Bowel sounds are positive. Extremities: No rash, lesions, or edema. No restriction of range of motion NEUROLOGICAL EXAMINATION: Drowsiness. Oriented to time, place and person. PERRL. EOMI. CN: no focal findings. Neck: No resistance. Muscle tone: within normal. Muscle strength: 5 DTR: 2 Plantar reflex: Flexor response bilaterally Gait: at his baseline normal. Sensory exam: no abnormal findings. No cerebellar signs elicited. Objective Objective Vital Signs Date Time Temp Pulse Resp B/P Pulse Ox O2 Delivery O2 Flow Rate FiO2 01/07/17 15:14 98.7 80 18 116/75 95 Room Air 98.7 Intake and Output 01/07/17 07:00 Intake Total 660 ml Output Total 4100 ml Balance -3440 ml Intake Oral 660 ml Output Urine Total 4100 ml Vitals Signs Vitals VS - Last 72 Hours, by Label Date Time Temp Pulse Resp B/P Pulse Ox O2 Delivery O2 Flow Rate FiO2 01/07/17 15:14 98.7 80 18 116/75 95 Room Air 98.7 01/07/17 11:00 98.4 85 18 94/59 99 Room Air 98.4 01/07/17 08:10 Room Air 01/07/17 08:00 Room Air 01/07/17 07:00 97.8 80 18 112/64 98 Room Air 97.8 01/07/17 02:56 98.9 77 18 103/56 96 Room Air 98.9 01/07/17 02:14 98.2 98.2 01/06/17 23:39 Room Air 01/06/17 23:15 101.1 99 116/78 Room Air 101.1 01/06/17 23:09 Room Air 01/06/17 22:34 98.8 90 17 118/73 98 Room Air 98.8 01/06/17 20:00 Room Air 01/06/17 19:00 98.1 89 17 115/65 97 Room Air 98.1 01/06/17 15:09 98.9 85 18 122/77 97 Room Air 98.9 01/06/17 11:18 98.1 85 18 109/67 100 Room Air 98.1 01/06/17 08:10 Room Air 01/06/17 07:00 98.1 80 18 115/73 98 Room Air 98.1 Laboratory Laboratory Laboratory Tests Test 01/07/17 06:00 01/07/17 06:45 Magnesium Level 1.4mg/dL (1.8-2.4) Sodium Level 134mmol/L (136-145) Potassium Level 3.1mmol/L (3.5-5.1) Chloride Level 103mmol/L (98-107) Carbon Dioxide Level 23mmol/L (21-32) Anion Gap 8 (6-14) Blood Urea Nitrogen 16mg/dL (8-26) Creatinine 1.3mg/dL (0.7-1.3) Estimated GFR (Cockcroft-Gault) 60.0 Glucose Level 140mg/dL (70-99) Calcium Level 7.8mg/dL (8.5-10.1) Phosphorus Level 4.1mg/dL (2.6-4.7) Albumin 1.6g/dL (3.4-5.0) Microbiology 12/31/16 Blood Culture - Final, Complete NO GROWTH AFTER 5 DAYS 01/01/17 AFB Specimen Processing Tissue - Final, Resulted 01/01/17 Acid Fast Bacilli Culture, Resulted Pending 01/01/17 Gram Stain - Final, Resulted Medication Medications Current Medications Magnesium Sulfate/ Dextrose (Magnesium Sulfate PREMIX 2GM) 50 ml @ 25 mls/hr PRN DAILY PRN IV for Mag < 1.7 on am labs; Start 01/07/17 at 10:15 Non-Formulary Medication 1200 mg 1,200 mg WEEKLY PO ; Start 01/08/17 at 09:00; Stop 01/08/17 at 09:00; Status DC Comment Review of Relevant I have reviewed the following items garland (where applicable) has been applied. JAYASHREE BAEZ MD Jan 07, 2017 15:28
[2017-01-07] MEDS: DEXTROSE 5% IV SCH (16:15)
[2017-01-07] MEDS: AMPHOTERICIN B LIPOSOME IV SCH (16:15)
[2017-01-07 19:00] VITALS: BP 100/57
--- NOTE | 2017-01-07 22:57 | PDOC ---
PROGRESS NOTES Chief Complaint Chief Complaint Hyponatremia resolved. Meningitis -Cryptococcus. Alvin 1: 2560 ? Chronic sinusitis, H/o Hep B H/o Herpes oralis Thrombocytopenia hypokalemia hypomagnesemia KYRA DUE TO VMN Plan Abx per ID -Bactrim/Valtrex. Weekly azithromycin Monitor electrolytes. Replaced IV hydration d/w ID, Cont Ambisome/Flucytosine. Cont Genvoya labs reviewed immigration case worker consult, Out pt abx to be arranged. History of Present Illness History of Present Illness no fever upset mood worried about his job no acute events Vitals Vitals Vital Signs Date Time Temp Pulse Resp B/P Pulse Ox O2 Delivery O2 Flow Rate FiO2 01/07/17 19:00 98.8 89 18 100/57 98 Room Air 98.8 Physical Exam General: Alert, Oriented X3, No acute distress Heart: Regular rate, Normal S1, Normal S2 Lungs: Clear Abdomen: Normal bowel sounds, No tenderness Extremities: No clubbing Skin: No breakdown Labs LABS Laboratory Tests Test 01/07/17 06:00 01/07/17 06:45 Magnesium Level 1.4mg/dL (1.8-2.4) Sodium Level 134mmol/L (136-145) Potassium Level 3.1mmol/L (3.5-5.1) Chloride Level 103mmol/L (98-107) Carbon Dioxide Level 23mmol/L (21-32) Anion Gap 8 (6-14) Blood Urea Nitrogen 16mg/dL (8-26) Creatinine 1.3mg/dL (0.7-1.3) Estimated GFR (Cockcroft-Gault) 60.0 Glucose Level 140mg/dL (70-99) Calcium Level 7.8mg/dL (8.5-10.1) Phosphorus Level 4.1mg/dL (2.6-4.7) Albumin 1.6g/dL (3.4-5.0) Assessment and Plan Assessmemt and Plan Problems Medical Problems: (1) Fever Status: Acute (2) Headache Status: Acute (3) Immunocompromised Status: Acute Problems: Comment Review of Relevant I have reviewed the following items garland (where applicable) has been applied. Labs Laboratory Tests Test 01/06/17 04:45 01/07/17 06:00 01/07/17 06:45 White Blood Count 4.1x10^3/uL (4.0-11.0) Red Blood Count 3.02x10^6/uL (4.30-5.70) Hemoglobin 9.7g/dL (13.0-17.5) Hematocrit 26.7% (39.0-53.0) Mean Corpuscular Volume 89fL (79-100) Mean Corpuscular Hemoglobin 32pg (25-35) Mean Corpuscular Hemoglobin Concent 36g/dL (31-37) Red Cell Distribution Width 15.0% (11.5-14.5) Platelet Count 96x10^3/uL (140-400) Neutrophils (%) (Auto) 48% (31-73) Lymphocytes (%) (Auto) 27% (24-48) Monocytes (%) (Auto) 18% (0-9) Eosinophils (%) (Auto) 6% (0-3) Basophils (%) (Auto) 2% (0-3) Neutrophils # (Auto) 2.0x10^3uL (1.8-7.7) Lymphocytes # (Auto) 1.1x10^3/uL (1.0-4.8) Monocytes # (Auto) 0.7x10^3/uL (0.0-1.1) Eosinophils # (Auto) 0.2x10^3/uL (0.0-0.7) Basophils # (Auto) 0.1x10^3/uL (0.0-0.2) Sodium Level 134mmol/L (136-145) 134mmol/L (136-145) Potassium Level 3.8mmol/L (3.5-5.1) 3.1mmol/L (3.5-5.1) Chloride Level 103mmol/L (98-107) 103mmol/L (98-107) Carbon Dioxide Level 23mmol/L (21-32) 23mmol/L (21-32) Anion Gap 8 (6-14) 8 (6-14) Blood Urea Nitrogen 15mg/dL (8-26) 16mg/dL (8-26) Creatinine 1.2mg/dL (0.7-1.3) 1.3mg/dL (0.7-1.3) Estimated GFR (Cockcroft-Gault) 65.8 60.0 Glucose Level 107mg/dL (70-99) 140mg/dL (70-99) Calcium Level 8.8mg/dL (8.5-10.1) 7.8mg/dL (8.5-10.1) Phosphorus Level 4.5mg/dL (2.6-4.7) 4.1mg/dL (2.6-4.7) Albumin 1.7g/dL (3.4-5.0) 1.6g/dL (3.4-5.0) Thyroid Stimulating Hormone (TSH) 1.760uIU/mL (0.358-3.74) Magnesium Level 1.4mg/dL (1.8-2.4) Laboratory Tests Test 01/07/17 06:00 01/07/17 06:45 Magnesium Level 1.4mg/dL (1.8-2.4) Sodium Level 134mmol/L (136-145) Potassium Level 3.1mmol/L (3.5-5.1) Chloride Level 103mmol/L (98-107) Carbon Dioxide Level 23mmol/L (21-32) Anion Gap 8 (6-14) Blood Urea Nitrogen 16mg/dL (8-26) Creatinine 1.3mg/dL (0.7-1.3) Estimated GFR (Cockcroft-Gault) 60.0 Glucose Level 140mg/dL (70-99) Calcium Level 7.8mg/dL (8.5-10.1) Phosphorus Level 4.1mg/dL (2.6-4.7) Albumin 1.6g/dL (3.4-5.0) Microbiology 12/31/16 Blood Culture - Final, Complete NO GROWTH AFTER 5 DAYS 01/01/17 AFB Specimen Processing Tissue - Final, Resulted 01/01/17 Acid Fast Bacilli Culture, Resulted Pending 01/01/17 Gram Stain - Final, Resulted Medications Current Medications Sodium Chloride (Iv Sodium Chloride 0.9% 1000ml Bag) 1,000 ml @ 1,000 mls/hr 1X ONCE IV Last administered on 12/31/16 22:00; Start 12/31/16 at 22:00; Stop 12/31/16 at 22:59; Status DC Morphine Sulfate 4 mg 1X ONCE IV Last administered on 12/31/16 22:02; Start 12/31/16 at 22:00; Stop 12/31/16 at 22:01; Status DC Lorazepam (Ativan) 2 mg STK-MED ONCE .ROUTE ; Start 12/31/16 at 22:31; Stop at 22:32; Status DC Lorazepam (Ativan) 1 mg 1X STAT IV Last administered on 12/31/16 22:35; Start 12/31/16 at 22:32; Stop 12/31/16 at 22:38; Status DC Acetaminophen (Tylenol) 1,000 mg 1X ONCE PO Last administered on 12/31/16 23: 11; Start 12/31/16 at 23:15; Stop 12/31/16 at 23:16; Status DC Hydromorphone HCl (Dilaudid) 0.5 mg 1X ONCE IV Last administered on 12/31/16 23:11; Start 12/31/16 at 23:15; Stop 12/31/16 at 23:16; Status DC Vancomycin HCl 1 each 1 each PRN DAILY PRN MC SEE COMMENTS Last administered on 01/01/17 02:42; Start 12/31/16 at 23:15; Stop 01/01/17 at 13:28; Status DC Ceftriaxone Sodium 2 gm/ Sodium Chloride 100 ml @ 200 mls/hr 1X ONCE IV Last administered on 12/31/16 23:30; Start 12/31/16 at 23:30; Stop 12/31/16 at 23:59 ; Status DC Vancomycin HCl 2 gm/Sodium Chloride 500 ml @ 250 mls/hr 1X ONCE IV Last administered on 01/01/17 00:00; Start 01/01/17 at 00:00; Stop 01/01/17 at 01:59 ; Status DC Fluconazole/ Sodium Chloride (Diflucan 400mg/ 200ml Premix) 200 ml @ 100 mls/ hr 1X ONCE IV Last administered on 01/01/17 03:12; Start 12/31/16 at 23:30; Stop 01/01/17 at 01:29; Status DC Ondansetron HCl (Zofran) 4 mg PRN Q8HRS PRN IV NAUSEA/VOMITING; Start 01/01/17 at 00:30; Stop 01/02/17 at 00:29; Status DC Morphine Sulfate 4 mg 4 mg PRN Q2HR PRN IV SEVERE PAIN Last administered on 20:44; Start 01/01/17 at 00:30; Stop 01/02/17 at 00:29; Status DC Sodium Chloride (Iv Sodium Chloride 0.9% 1000ml Bag) 1,000 ml @ 100 mls/hr Q10H IV Last administered on 01/01/17 02:07; Start 01/01/17 at 00:28; Stop at 09:20; Status DC Acetaminophen 650 mg 650 mg PRN Q4HRS PRN PO FEVER Last administered on 23:35; Start 01/01/17 at 00:30; Stop 01/02/17 at 00:29; Status DC Vancomycin HCl/ Sodium Chloride (Iv Sodium Chloride 0.9% 500ml Bag) 500 ml @ 250 mls/hr Q8H IV Last administered on 01/01/17 08:13; Start 01/01/17 at 08:00 ; Stop 01/01/17 at 13:28; Status DC Vancomycin HCl 1 each 1X ONCE MC ; Start 01/01/17 at 23:30; Stop 01/01/17 at 23 :30; Status DC Elvitegravir/ Cobicis/Emtricit/ Tenof (Genvoya) 1 tab DAILY PO Last administered on 01/07/17 08:28; Start 01/02/17 at 11:00 Valacyclovir HCl (Valtrex) 1,000 mg BID PO Last administered on 01/07/17 20:53 ; Start 01/01/17 at 21:00 Non-Formulary Medication 1,200 mg WEEKLY PO ; Start 01/08/17 at 09:00; Stop at 09:00; Status DC Non-Formulary Medication 1500 mcg 1,500 mcg DAILY PO ; Start 01/02/17 at 09:00; Status UNV Sodium Chloride (Iv Sodium Chloride 0.9% 1000ml Bag) 1,000 ml @ 150 mls/hr Q6H40M IV ; Start 01/01/17 at 09:05; Stop 01/01/17 at 09:34; Status DC Saliva Substitute 2 spray 2 spray PRN Q15MIN PRN PO DRY MOUTH; Start 01/01/17 at 09:15 Ceftriaxone Sodium 2 gm/ Sodium Chloride 100 ml @ 200 mls/hr Q12HR IV Last administered on 01/05/17 20:47; Start 01/01/17 at 21:00; Stop 01/06/17 at 11:59 ; Status DC Ampicillin Sodium 2 gm/Sodium Chloride 100 ml @ 200 mls/hr Q4HRS IV Last administered on 01/01/17 13:09; Start 01/01/17 at 12:00; Stop 01/01/17 at 13:28 ; Status DC Fluconazole/ Sodium Chloride (Diflucan 400mg/ 200ml Premix) 200 ml @ 100 mls/ hr Q24H IV ; Start 01/01/17 at 12:00; Stop 01/01/17 at 13:28; Status DC Trimethoprim/ Sulfamethoxazole (Bactrim Ds) 1 tab DAILY PO Last administered on 01/07/17 08:28; Start 01/01/17 at 09:00 Azithromycin 500 mg 500 mg DAILY PO Last administered on 01/03/17 08:46; Start 01/01/17 at 11:30; Stop 01/03/17 at 08:48; Status DC Amphotericin B/ Dextrose (Ambisome) 500 ml @ 250 mls/hr Q24H IV Last administered on 01/07/17 16:15; Start 01/01/17 at 14:00 Flucytosine (Ancobon) 2,500 mg Q6H PO Last administered on 01/07/17 20:53; Start 01/01/17 at 14:00 Morphine Sulfate 4 mg PRN Q2HR PRN IV PAIN Last administered on 01/06/17 23:09 ; Start 01/02/17 at 08:00 Acetaminophen (Tylenol) 650 mg PRN Q6HRS PRN PO fever or pain Last administered on 01/06/17 23:17; Start 01/02/17 at 08:00 Sodium Chloride (Saline Mist Nasal) 1 fab PRN Q1HR PRN NS NASAL CONGESTION; Start 01/02/17 at 10:45 Diphenhydramine HCl (Benadryl) 25 mg DAILY PO Last administered on 01/02/17 12 :43; Start 01/02/17 at 13:30; Stop 01/02/17 at 19:56; Status DC Acetaminophen (Tylenol) 650 mg DAILY PO Last administered on 01/02/17 12:43; Start 01/02/17 at 13:30; Stop 01/02/17 at 19:55; Status DC Flucytosine (Ancobon) 2,500 mg Q6HRS PO ; Start 01/02/17 at 18:00; Status UNV Acetaminophen (Tylenol) 650 mg Q24H PO Last administered on 01/07/17 13:21; Start 01/03/17 at 13:30 Diphenhydramine HCl (Benadryl) 25 mg Q24H PO Last administered on 01/07/17 13: 20; Start 01/03/17 at 13:00 Azithromycin 500 mg 500 mg DAILY PO Last administered on 01/03/17 09:00; Start 01/03/17 at 09:00; Stop 01/03/17 at 13:00; Status DC Magnesium Sulfate/ Dextrose 50 ml @ 25 mls/hr 1X ONCE IV Last administered on 01/03/17 10:47; Start 01/03/17 at 09:30; Stop 01/03/17 at 11:29; Status DC Sodium Phosphate 20 mmol/Dextrose 256.6667 ml @ 64.167 m... 1X ONCE IV Last administered on 01/03/17 10:47; Start 01/03/17 at 09:30; Stop 01/03/17 at 13:29 ; Status DC Sodium Chloride 1,000 ml @ 75 mls/hr [id number] IV Last administered on 05:19; Start 01/04/17 at 09:00; Stop 01/07/17 at 20:57; Status DC Magnesium Sulfate/ Dextrose 100 ml @ 25 mls/hr 1X ONCE IV Last administered on 01/04/17 10:48; Start 01/04/17 at 09:30; Stop 01/04/17 at 13:29; Status DC Magnesium Sulfate/ Dextrose 100 ml @ 25 mls/hr 1X ONCE IV Last administered on 01/05/17 09:31; Start 01/05/17 at 09:30; Stop 01/05/17 at 13:29; Status DC Magnesium Sulfate/ Dextrose 50 ml @ 25 mls/hr DAILY IV Last administered on 08:27; Start 01/06/17 at 09:00 Magnesium Sulfate/ Dextrose (Magnesium Sulfate PREMIX 2GM) 50 ml @ 25 mls/hr PRN DAILY PRN IV for Mag < 1.7 on am labs; Start 01/07/17 at 10:15 Active Scripts Active Magnesium Oxide 400 Mg Tablet 1 Tab PO BID 5 Days Reported Valacyclovir (Valacyclovir Hcl) 1,000 Mg Tablet 1,000 Mg PO BID [Azithromycin] 1,200 Mg PO WEEKLY Genvoya Tablet (Elviteg/Aline/Emtric/Tenofo Ala) 1 Each Tablet 1 Each PO DAILY [Iron] 27 Mg PO DAILY [Collagen Support] 1,500 Mcg PO DAILY Vitals/I & O Vital Sign - Last 24 Hours 01/06/17 01/06/17 01/06/17 01/07/17 23:09 23:15 23:39 02:14 Temp 101.1 98.2 101.1 98.2 Pulse 99 B/P 116/78 O2 Delivery Room Air Room Air Room Air 01/07/17 01/07/17 01/07/17 01/07/17 02:56 07:00 08:00 08:10 Temp 98.9 97.8 98.9 97.8 Pulse 77 80 Resp 18 18 B/P 103/56 112/64 Pulse Ox 96 98 O2 Delivery Room Air Room Air Room Air Room Air 01/07/17 01/07/17 01/07/17 11:00 15:14 19:00 Temp 98.4 98.7 98.8 98.4 98.7 98.8 Pulse 85 80 89 Resp 18 18 18 B/P 94/59 116/75 100/57 Pulse Ox 99 95 98 O2 Delivery Room Air Room Air Room Air Intake and Output 01/06/17 01/06/17 01/07/17 15:00 23:00 07:00 Intake Total 360 ml 300 ml Output Total 3200 ml 900 ml Balance -2840 ml -600 ml MARTA GALLEGOS MD Jan 07, 2017 22:57
[2017-01-07 23:00] VITALS: BP 103/62
[2017-01-08] MEDS: ACETAMINOPHEN 325 MG TABLET. PO PRN (01:10)
[2017-01-08] MEDS: MORPHINE SULFATE 4 MG/ML DISP.SYRIN. IV PRN (01:12)
[2017-01-08] MEDS: FLUCYTOSINE 500 MG PO SCH ×2 (02:32→10:04)
[2017-01-08 03:19] VITALS: BP 128/73
[2017-01-08 06:54] LABS: ALBUMIN 1.7 g/dL (3.4-5.0); CALCIUM 8.4 mg/dL (8.5-10.1); CREATININE 1.4 mg/dL (0.7-1.3); GFR 55.1; PHOSPHORUS 4.9 mg/dL (2.6-4.7); POTASSIUM 3.2 mmol/L (3.5-5.1)
[2017-01-08 07:00] VITALS: BP 103/69
[2017-01-08] MEDS ORDERED: AZITHROMYCIN PO SCH (09:00)
[2017-01-08] MEDS: valACYclovir 500 MG TABLET. PO SCH ×2 (10:04→20:37)
[2017-01-08] MEDS: [UNRECOGNIZED DRUG - OTHER] PO SCH (10:04)
[2017-01-08] MEDS: SMZ/TMP 800/160MG TABLET. PO SCH (10:04)
[2017-01-08] MEDS: MAGNESIUM SULFATE 2GM 50 ML IV SCH (10:06)
--- NOTE | 2017-01-08 10:29 | PDOC ---
Infectious Disease Note Subjective Subjective Did have small temp last pm but better over all. Hoping to go home Doing ok but lost his job Denies MANDUJANO, dizziness, confusion or visual changes ROS ROS GEN: Denies fevers, chills, sweats HEENT: Denies blurred vision, sore throat CV: Denies chest pain RESP: Denies shortness of air, cough GI: Denies n/v/d NEURO: Denies confusion, dizziness MSK: Denies weakness, joint pain/swelling Vital Sign Vital Signs Vital Signs Date Time Temp Pulse Resp B/P Pulse Ox O2 Delivery O2 Flow Rate FiO2 01/08/17 07:00 98.3 74 20 103/69 97 Room Air 98.3 Physical Exam PHYSICAL EXAM GENERAL: NAD, Alert HEENT: PERRL, OC/OP -dentures NECK: Supple, no JVD, no LN LUNGS: Clear HEART: S1S2, no gallop, no murmur ABD: Soft, NT, no organomegaly, no rebound EXT: No edema, no cyanosis [employer]: Alert, 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, no focal neurologic deficit SKIN: No rash IV: PICC clean Labs Lab Laboratory Tests Test 01/08/17 06:00 Sodium Level 134mmol/L (136-145) Potassium Level 3.2mmol/L (3.5-5.1) Chloride Level 102mmol/L (98-107) Carbon Dioxide Level 23mmol/L (21-32) Anion Gap 9 (6-14) Blood Urea Nitrogen 18mg/dL (8-26) Creatinine 1.4mg/dL (0.7-1.3) Estimated GFR (Cockcroft-Gault) 55.1 Glucose Level 100mg/dL (70-99) Calcium Level 8.4mg/dL (8.5-10.1) Phosphorus Level 4.9mg/dL (2.6-4.7) Magnesium Level 1.5mg/dL (1.8-2.4) Albumin 1.7g/dL (3.4-5.0) Objective Assessment Fever better Hyponatremia - corrected Meningitis -Cryptococcus. MANDUJANO better Titier 1: 2560 Sinus congestion - CT neg. ? septum deviation AIDS VL 91,979 Sep and CD Oct. On Genvoya/Bactrim/Weekly Azithromycin. VDRL - neg in CSF. TB Spot -neg Abnormal CXR H/o Hep B H/o Herpes oralis Plan Plan of Care Needs 3 more dose of Ambisome will dose today and can be outpatient starting and 01/13 Hydrate today and prior to outpatient doses CBC today Cont daily Bactrim/Valtrex. Weekly azithromycin/Genvoya - has at home Cont Flucytosine with last dose 01/14. Electrolyte replacement Needs outpatient labs Mg/BMP/phos F/u ID office next week [phone] Social service evfabi D/w OMI Boykin MD Jan 08, 2017 10:29
[2017-01-08] MEDS ORDERED: IV NORMAL SALINE 1000ML BAG 1,000 ML IV ONE (10:30)
[2017-01-08] MEDS ORDERED: POTASSIUM CHLORIDE 20 MEQ TABLET.ER. PO ONE (10:30)
[2017-01-08 10:41] LABS: BASO % 1 % (0-3); EOS % 5 % (0-3); HEMATOCRIT 24.6 % (39.0-53.0); HEMOGLOBIN 8.7 g/dL (13.0-17.5); LYMPH # 1.6 x10^3/uL (1.0-4.8); LYMPH % 33 % (24-48); MEAN CORPUSCULAR HEMOGLOBIN 32 pg (25-35); MEAN CORPUSCULAR HGB CONC 35 g/dL (31-37); MEAN CORPUSCULAR VOLUME 90 fL (79-100); MONO % 14 % (0-9); NEUT % 47 % (31-73); PLATELET COUNT 131 x10^3/uL (140-400); RED BLOOD COUNT 2.74 x10^6/uL (4.30-5.70); RED CELL DISTRIBUTION WIDTH 14.7 % (11.5-14.5)
[2017-01-08 11:00] VITALS: BP 106/68
[2017-01-08 12:55] LABS: % BASOS 1 % (0-3); % EOS 8 % (0-5); ANISOCYTOSIS SLIGHT; PLT ESTIMATE ADEQUATE (ADEQUATE)
[2017-01-08] MEDS ORDERED: AMPHOTERICIN B LIPOSOME IV SCH (14:00)
[2017-01-08] MEDS ORDERED: DEXTROSE 5% IV SCH (14:00)
[2017-01-08 15:00] VITALS: BP 105/56
[2017-01-08] MEDS: ACETAMINOPHEN 325 MG TABLET. PO SCH (15:11)
[2017-01-08] MEDS: diphenhydrAMINE HCL 25 MG CAPSULE PO SCH (15:11)
--- NOTE | 2017-01-08 15:18 | PDOC ---
PROGRESS NOTES Assessment Assessment Meningitis, cryptococcus Fever Headache HIV HBV ? Hyponatremia. Elevated hepatic enzymes. RECOMMENDATIONS/PLAN: Continue ID treatment. Treat medical diseases. FU with PCP and ID. SUBJECTIVE: Feeling better. No headaches. OBJECTIVE: No focalized motor or sensory deficits. 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 MEDICATIONS: Refer to MAR REVIEW OF SYSTEMS: Constitutional: No malnutrition, weight loss, cachexia. Head: No recent traumatic brain or head injury. Skin: No edema, or rash. Ear: No infection, tinnitus. Eyes: No vision loss, or diplopia. Nose: No bleeding or purulent discharges. Hearing: No hearing decrease. Neck: No injury. Cardiac: No PA, arrhythmia Pulmonary: No COPD. GI: No GI Ulcer, GI bleeding Urinary/genital: No dysuria, incontinence, urinary retention. Endocrine: No cousin face, craniofacial dysmorphism, polydactyly. Skeletomuscular: No muscular atrophy, deformity, generalized weakness. Neurological: see HP. Psychiatric: Denies drug use/abuse. Otherwise, not [id number] review of systems. PHYSICAL EXAMINATION: General appearance in no acute distress. HEENT: Normocephalic and nontraumatic. Eyes, nose, ears, and throat are unremarkable. Hearing decrease. Neck is supple. No lymphadenopathy. No bruits are heard over the carotid artery. No Crepitus. Cardiovascular: S1, S2, regular rate and rhythm. Pulmonary: Clear to auscultation bilaterally. Abdomen: Bowel sounds are positive. Extremities: No rash, lesions, or edema. No restriction of range of motion NEUROLOGICAL EXAMINATION: Drowsiness. Oriented to time, place and person. PERRL. EOMI. CN: no focal findings. Neck: No resistance. Muscle tone: within normal. Muscle strength: 5 DTR: 2 Plantar reflex: Flexor response bilaterally Gait: at his baseline normal. Sensory exam: no abnormal findings. No cerebellar signs elicited. Objective Objective Vital Signs Date Time Temp Pulse Resp B/P Pulse Ox O2 Delivery O2 Flow Rate FiO2 01/08/17 11:00 97.9 83 20 106/68 96 Room Air 97.9 Intake and Output 01/08/17 07:00 Intake Total 2460 ml Output Total 4800 ml Balance -2340 ml Intake Oral 2460 ml Output Urine Total 4800 ml Vitals Signs Vitals VS - Last 72 Hours, by Label Date Time Temp Pulse Resp B/P Pulse Ox O2 Delivery O2 Flow Rate FiO2 01/08/17 11:00 97.9 83 20 106/68 96 Room Air 97.9 01/08/17 07:00 98.3 74 20 103/69 97 Room Air 98.3 01/08/17 03:19 98.9 83 18 128/73 96 Room Air 98.9 01/08/17 01:45 15 94 Room Air 01/08/17 01:12 16 94 Room Air 01/07/17 23:00 100.1 94 18 103/62 94 Room Air 100.1 01/07/17 19:00 98.8 89 18 100/57 98 Room Air 98.8 01/07/17 15:14 98.7 80 18 116/75 95 Room Air 98.7 01/07/17 11:00 98.4 85 18 94/59 99 Room Air 98.4 01/07/17 08:10 Room Air 01/07/17 08:00 Room Air 01/07/17 07:00 97.8 80 18 112/64 98 Room Air 97.8 Laboratory Laboratory Laboratory Tests Test 01/08/17 06:00 01/08/17 07:30 Sodium Level 134mmol/L (136-145) Potassium Level 3.2mmol/L (3.5-5.1) Chloride Level 102mmol/L (98-107) Carbon Dioxide Level 23mmol/L (21-32) Anion Gap 9 (6-14) Blood Urea Nitrogen 18mg/dL (8-26) Creatinine 1.4mg/dL (0.7-1.3) Estimated GFR (Cockcroft-Gault) 55.1 Glucose Level 100mg/dL (70-99) Calcium Level 8.4mg/dL (8.5-10.1) Phosphorus Level 4.9mg/dL (2.6-4.7) Magnesium Level 1.5mg/dL (1.8-2.4) Albumin 1.7g/dL (3.4-5.0) White Blood Count 5.0x10^3/uL (4.0-11.0) Red Blood Count 2.74x10^6/uL (4.30-5.70) Hemoglobin 8.7g/dL (13.0-17.5) Hematocrit 24.6% (39.0-53.0) Mean Corpuscular Volume 90fL (79-100) Mean Corpuscular Hemoglobin 32pg (25-35) Mean Corpuscular Hemoglobin Concent 35g/dL (31-37) Red Cell Distribution Width 14.7% (11.5-14.5) Platelet Count 131x10^3/uL (140-400) Neutrophils (%) (Auto) 47% (31-73) Lymphocytes (%) (Auto) 33% (24-48) Monocytes (%) (Auto) 14% (0-9) Eosinophils (%) (Auto) 5% (0-3) Basophils (%) (Auto) 1% (0-3) Neutrophils # (Auto) 2.4x10^3uL (1.8-7.7) Lymphocytes # (Auto) 1.6x10^3/uL (1.0-4.8) Monocytes # (Auto) 0.7x10^3/uL (0.0-1.1) Eosinophils # (Auto) 0.3x10^3/uL (0.0-0.7) Basophils # (Auto) 0.0x10^3/uL (0.0-0.2) Segmented Neutrophils % 48% (35-66) Band Neutrophils % 7% (0-9) Lymphocytes % 27% (24-48) Monocytes % 9% (0-10) Eosinophils % 8% (0-5) Basophils % 1% (0-3) Platelet Estimate Adequate (ADEQUATE) Anisocytosis Slight Microbiology 12/31/16 Blood Culture - Final, Complete NO GROWTH AFTER 5 DAYS 01/01/17 AFB Specimen Processing Tissue - Final, Resulted 01/01/17 Acid Fast Bacilli Culture, Resulted Pending 01/01/17 Gram Stain - Final, Resulted Medication Medications Current Medications Amphotericin B/ Dextrose (Ambisome) 500 ml @ 250 mls/hr Q24H IV ; Start at 14:00; Stop 01/08/17 at 17:00 Flucytosine (Ancobon) 2,000 mg ONCE ONCE PO ; Start 01/09/17 at 02:00; Stop at 02:01 Flucytosine (Ancobon) 2,500 mg ONCE ONCE PO ; Start 01/08/17 at 18:00; Stop at 18:01 Flucytosine (Ancobon) 2,500 mg Q6H PO ; Start 01/09/17 at 10:00 Non-Formulary Medication 1200 mg 1,200 mg WEEKLY PO ; Start 01/08/17 at 09:00; Stop 01/08/17 at 09:00; Status DC Potassium Chloride 40 meq 40 meq 1X ONCE PO Last administered on 01/08/17 10: 05; Start 01/08/17 at 10:30; Stop 01/08/17 at 10:31; Status DC Sodium Chloride (Iv Sodium Chloride 0.9% 1000ml Bag) 1,000 ml @ 75 mls/hr 1X ONCE IV Last administered on 01/08/17 10:06; Start 01/08/17 at 10:30; Stop at 23:49 Comment Review of Relevant I have reviewed the following items garland (where applicable) has been applied. JAYASHREE BAEZ MD Jan 08, 2017 15:18
[2017-01-08] MEDS ORDERED: FLUCYTOSINE 500 MG PO ONE (18:00)
[2017-01-08 19:00] VITALS: BP 116/76
[2017-01-09] MEDS ORDERED: FLUCYTOSINE 500 MG PO ONE (02:00)
[2017-01-09] MEDS ORDERED: FLUCYTOSINE 500 MG PO SCH (10:00)
--- NOTE | 2017-01-15 10:36 | PDOC ---
PROGRESS NOTES Chief Complaint Chief Complaint late entry, Pt seen on 01/08/17 Hyponatremia resolved. Meningitis -Cryptococcus. Titier 1: 2560 ? Chronic sinusitis, H/o Hep B H/o Herpes oralis Thrombocytopenia hypokalemia hypomagnesemia KYRA DUE TO VMN Plan Abx per ID -Bactrim/Valtrex. Weekly azithromycin Monitor electrolytes. Replaced IV hydration d/w ID, Cont Ambisome/Flucytosine. Cont Genvoya labs reviewed d/w SW, awaiting for abx to be arranged. History of Present Illness History of Present Illness no fever upset mood worried about his job no acute events Physical Exam General: Alert, Oriented X3, No acute distress Heart: Regular rate, Normal S1, Normal S2 Lungs: Clear Abdomen: Normal bowel sounds, No tenderness Extremities: No clubbing Skin: No breakdown Assessment and Plan Assessmemt and Plan Problems Medical Problems: (1) Fever Status: Acute (2) Headache Status: Acute (3) Immunocompromised Status: Acute Problems: Comment Review of Relevant I have reviewed the following items garland (where applicable) has been applied. Labs Microbiology 12/31/16 Blood Culture - Final, Complete NO GROWTH AFTER 5 DAYS 01/01/17 AFB Specimen Processing Tissue - Final, Resulted 01/01/17 Acid Fast Bacilli Culture, Resulted Pending 01/01/17 Gram Stain - Final, Resulted Medications Current Medications Sodium Chloride (Iv Sodium Chloride 0.9% 1000ml Bag) 1,000 ml @ 1,000 mls/hr 1X ONCE IV Last administered on 12/31/16 22:00; Start 12/31/16 at 22:00; Stop 12/31/16 at 22:59; Status DC Morphine Sulfate 4 mg 1X ONCE IV Last administered on 12/31/16 22:02; Start 12/31/16 at 22:00; Stop 12/31/16 at 22:01; Status DC Lorazepam (Ativan) 2 mg STK-MED ONCE .ROUTE ; Start 12/31/16 at 22:31; Stop at 22:32; Status DC Lorazepam (Ativan) 1 mg 1X STAT IV Last administered on 12/31/16 22:35; Start 12/31/16 at 22:32; Stop 12/31/16 at 22:38; Status DC Acetaminophen (Tylenol) 1,000 mg 1X ONCE PO Last administered on 12/31/16 23: 11; Start 12/31/16 at 23:15; Stop 12/31/16 at 23:16; Status DC Hydromorphone HCl (Dilaudid) 0.5 mg 1X ONCE IV Last administered on 12/31/16 23:11; Start 12/31/16 at 23:15; Stop 12/31/16 at 23:16; Status DC Vancomycin HCl 1 each 1 each PRN DAILY PRN MC SEE COMMENTS Last administered on 01/01/17 02:42; Start 12/31/16 at 23:15; Stop 01/01/17 at 13:28; Status DC Ceftriaxone Sodium 2 gm/ Sodium Chloride 100 ml @ 200 mls/hr 1X ONCE IV Last administered on 12/31/16 23:30; Start 12/31/16 at 23:30; Stop 12/31/16 at 23:59 ; Status DC Vancomycin HCl 2 gm/Sodium Chloride 500 ml @ 250 mls/hr 1X ONCE IV Last administered on 01/01/17 00:00; Start 01/01/17 at 00:00; Stop 01/01/17 at 01:59 ; Status DC Fluconazole/ Sodium Chloride (Diflucan 400mg/ 200ml Premix) 200 ml @ 100 mls/ hr 1X ONCE IV Last administered on 01/01/17 03:12; Start 12/31/16 at 23:30; Stop 01/01/17 at 01:29; Status DC Ondansetron HCl (Zofran) 4 mg PRN Q8HRS PRN IV NAUSEA/VOMITING; Start 01/01/17 at 00:30; Stop 01/02/17 at 00:29; Status DC Morphine Sulfate 4 mg 4 mg PRN Q2HR PRN IV SEVERE PAIN Last administered on 20:44; Start 01/01/17 at 00:30; Stop 01/02/17 at 00:29; Status DC Sodium Chloride (Iv Sodium Chloride 0.9% 1000ml Bag) 1,000 ml @ 100 mls/hr Q10H IV Last administered on 01/01/17 02:07; Start 01/01/17 at 00:28; Stop at 09:20; Status DC Acetaminophen 650 mg 650 mg PRN Q4HRS PRN PO FEVER Last administered on 23:35; Start 01/01/17 at 00:30; Stop 01/02/17 at 00:29; Status DC Vancomycin HCl/ Sodium Chloride (Iv Sodium Chloride 0.9% 500ml Bag) 500 ml @ 250 mls/hr Q8H IV Last administered on 01/01/17 08:13; Start 01/01/17 at 08:00 ; Stop 01/01/17 at 13:28; Status DC Vancomycin HCl 1 each 1X ONCE MC ; Start 01/01/17 at 23:30; Stop 01/01/17 at 23 :30; Status DC Elvitegravir/ Cobicis/Emtricit/ Tenof (Genvoya) 1 tab DAILY PO Last administered on 01/08/17 10:04; Start 01/02/17 at 11:00; Stop 01/08/17 at 23:09 ; Status DC Valacyclovir HCl (Valtrex) 1,000 mg BID PO Last administered on 01/08/17 20:37 ; Start 01/01/17 at 21:00; Stop 01/08/17 at 23:09; Status DC Non-Formulary Medication 1,200 mg WEEKLY PO ; Start 01/08/17 at 09:00; Stop at 09:00; Status DC Non-Formulary Medication 1500 mcg 1,500 mcg DAILY PO ; Start 01/02/17 at 09:00; Status UNV Sodium Chloride (Iv Sodium Chloride 0.9% 1000ml Bag) 1,000 ml @ 150 mls/hr Q6H40M IV ; Start 01/01/17 at 09:05; Stop 01/01/17 at 09:34; Status DC Saliva Substitute 2 spray 2 spray PRN Q15MIN PRN PO DRY MOUTH; Start 01/01/17 at 09:15; Stop 01/08/17 at 23:09; Status DC Ceftriaxone Sodium 2 gm/ Sodium Chloride 100 ml @ 200 mls/hr Q12HR IV Last administered on 01/05/17 20:47; Start 01/01/17 at 21:00; Stop 01/06/17 at 11:59 ; Status DC Ampicillin Sodium 2 gm/Sodium Chloride 100 ml @ 200 mls/hr Q4HRS IV Last administered on 01/01/17 13:09; Start 01/01/17 at 12:00; Stop 01/01/17 at 13:28 ; Status DC Fluconazole/ Sodium Chloride (Diflucan 400mg/ 200ml Premix) 200 ml @ 100 mls/ hr Q24H IV ; Start 01/01/17 at 12:00; Stop 01/01/17 at 13:28; Status DC Trimethoprim/ Sulfamethoxazole (Bactrim Ds) 1 tab DAILY PO Last administered on 01/08/17 10:04; Start 01/01/17 at 09:00; Stop 01/08/17 at 23:09; Status DC Azithromycin 500 mg 500 mg DAILY PO Last administered on 01/03/17 08:46; Start 01/01/17 at 11:30; Stop 01/03/17 at 08:48; Status DC Amphotericin B/ Dextrose (Ambisome) 500 ml @ 250 mls/hr Q24H IV Last administered on 01/07/17 16:15; Start 01/01/17 at 14:00; Stop 01/08/17 at 10:30 ; Status DC Flucytosine (Ancobon) 2,500 mg Q6H PO Last administered on 01/08/17 10:04; Start 01/01/17 at 14:00; Stop 01/08/17 at 13:18; Status DC Morphine Sulfate 4 mg PRN Q2HR PRN IV PAIN Last administered on 01/08/17 01:12 ; Start 01/02/17 at 08:00; Stop 01/08/17 at 23:09; Status DC Acetaminophen (Tylenol) 650 mg PRN Q6HRS PRN PO fever or pain Last administered on 01/08/17 01:10; Start 01/02/17 at 08:00; Stop 01/08/17 at 23:09 ; Status DC Sodium Chloride (Saline Mist Nasal) 1 fab PRN Q1HR PRN NS NASAL CONGESTION; Start 01/02/17 at 10:45; Stop 01/08/17 at 23:09; Status DC Diphenhydramine HCl (Benadryl) 25 mg DAILY PO Last administered on 01/02/17 12 :43; Start 01/02/17 at 13:30; Stop 01/02/17 at 19:56; Status DC Acetaminophen (Tylenol) 650 mg DAILY PO Last administered on 01/02/17 12:43; Start 01/02/17 at 13:30; Stop 01/02/17 at 19:55; Status DC Flucytosine (Ancobon) 2,500 mg Q6HRS PO ; Start 01/02/17 at 18:00; Status UNV Acetaminophen (Tylenol) 650 mg Q24H PO Last administered on 01/08/17 15:11; Start 01/03/17 at 13:30; Stop 01/08/17 at 23:09; Status DC Diphenhydramine HCl (Benadryl) 25 mg Q24H PO Last administered on 01/08/17 15: 11; Start 01/03/17 at 13:00; Stop 01/08/17 at 23:09; Status DC Azithromycin 500 mg 500 mg DAILY PO Last administered on 01/03/17 09:00; Start 01/03/17 at 09:00; Stop 01/03/17 at 13:00; Status DC Magnesium Sulfate/ Dextrose 50 ml @ 25 mls/hr 1X ONCE IV Last administered on 01/03/17 10:47; Start 01/03/17 at 09:30; Stop 01/03/17 at 11:29; Status DC Sodium Phosphate 20 mmol/Dextrose 256.6667 ml @ 64.167 m... 1X ONCE IV Last administered on 01/03/17 10:47; Start 01/03/17 at 09:30; Stop 01/03/17 at 13:29 ; Status DC Sodium Chloride 1,000 ml @ 75 mls/hr [id number] IV Last administered on 05:19; Start 01/04/17 at 09:00; Stop 01/07/17 at 20:57; Status DC Magnesium Sulfate/ Dextrose 100 ml @ 25 mls/hr 1X ONCE IV Last administered on 01/04/17 10:48; Start 01/04/17 at 09:30; Stop 01/04/17 at 13:29; Status DC Magnesium Sulfate/ Dextrose 100 ml @ 25 mls/hr 1X ONCE IV Last administered on 01/05/17 09:31; Start 01/05/17 at 09:30; Stop 01/05/17 at 13:29; Status DC Magnesium Sulfate/ Dextrose 50 ml @ 25 mls/hr DAILY IV Last administered on 4/ 26/17at 10:06; Start 01/06/17 at 09:00; Stop 01/08/17 at 23:09; Status DC Magnesium Sulfate/ Dextrose 50 ml @ 25 mls/hr PRN DAILY PRN IV for Mag < 1.7 on am labs; Start 01/07/17 at 10:15; Stop 01/08/17 at 23:09; Status DC Sodium Chloride (Iv Sodium Chloride 0.9% 1000ml Bag) 1,000 ml @ 75 mls/hr 1X ONCE IV Last administered on 01/08/17 10:06; Start 01/08/17 at 10:30; Stop at 23:09; Status DC Potassium Chloride 40 meq 40 meq 1X ONCE PO Last administered on 01/08/17 10: 05; Start 01/08/17 at 10:30; Stop 01/08/17 at 10:31; Status DC Amphotericin B/ Dextrose (Ambisome) 500 ml @ 250 mls/hr Q24H IV Last administered on 01/08/17 15:56; Start 01/08/17 at 14:00; Stop 01/08/17 at 17:00 ; Status DC Flucytosine (Ancobon) 2,500 mg Q6H PO ; Start 01/09/17 at 10:00; Stop 01/09/17 at 10:00; Status DC Flucytosine (Ancobon) 2,500 mg ONCE ONCE PO Last administered on 01/08/17 18: 56; Start 01/08/17 at 18:00; Stop 01/08/17 at 18:01; Status DC Flucytosine (Ancobon) 2,000 mg ONCE ONCE PO ; Start 01/09/17 at 02:00; Stop at 02:00; Status DC Active Scripts Active Magnesium Oxide 400 Mg Tablet 1 Tab PO BID 5 Days Reported Valacyclovir (Valacyclovir Hcl) 1,000 Mg Tablet 1,000 Mg PO BID [Azithromycin] 1,200 Mg PO WEEKLY Genvoya Tablet (Elviteg/Aline/Emtric/Tenofo Ala) 1 Each Tablet 1 Each PO DAILY [Iron] 27 Mg PO DAILY [Collagen Support] 1,500 Mcg PO DAILY MARTA GALLEGOS MD January 15, 2017 10:36
--- NOTE | 2017-01-15 10:38 | PDOC3 ---
Discharge Summary* Admitting Diagnosis Problems Medical Problems: (1) Fever Status: Acute (2) Headache Status: Acute (3) Immunocompromised Status: Acute Final Diagnosis Problems Medical Problems: (1) Fever Status: Acute (2) Headache Status: Acute (3) Immunocompromised Status: Acute Brief Hospital Course Mr. Alfredo is a 46 old male left AMA, Pl see progress notes for full details, also RN notes. Scheduled ([Collagen Support]) 1,500 MCG PO DAILY (Reported) ([Iron]) 27 MG PO DAILY (Reported) ([Azithromycin]) 1,200 MG PO WEEKLY (Reported) Elviteg/Aline/Emtric/Tenofo Ala (Genvoya Tablet) 1 EACH PO DAILY (Reported) Magnesium Oxide (Magnesium Oxide) 1 TAB PO BID Valacyclovir Hcl (Valacyclovir) 1,000 MG PO BID (Reported) Time Spent Total time spent with patient [] minutes for coordination of care, counseling, and education. MARTA GALLEGOS MD January 15, 2017 10:38
== END 2017-01-08 22:15 | disposition left against medical advice (07) | DRG 977 ==
LOC: ER 20:12 → 5 SOUTH 01-01 00:27
PROVIDERS: ADMIT Internal Medicine; ATTEND Internal Medicine
PROC: 02HV33Z Insertion of Infusion Device into Superior Vena Cava, Percutaneous Approach (ICD-10-PCS; principal; 2017-01-01)
PROC: 009U3ZX Drainage of Spinal Canal, Percutaneous Approach, Diagnostic (ICD-10-PCS; 2017-01-01)
PROC: B01B1ZZ Fluoroscopy of Spinal Cord using Low Osmolar Contrast (ICD-10-PCS; 2017-01-01)
DX: B20 Human immunodeficiency virus [HIV] disease (principal); B45.1 Cerebral cryptococcosis; E43 Unspecified severe protein-calorie malnutrition; R65.10 Systemic inflammatory response syndrome (SIRS) of non-infectious origin without acute organ dysfunction; E87.1 Hypo-osmolality and hyponatremia; N17.9 Acute kidney failure, unspecified; D64.9 Anemia, unspecified; D69.6 Thrombocytopenia, unspecified; E83.42 Hypomagnesemia; E86.0 Dehydration; E87.6 Hypokalemia; F90.9 Attention-deficit hyperactivity disorder, unspecified type; J32.9 Chronic sinusitis, unspecified; J34.2 Deviated nasal septum; F41.9 Anxiety disorder, unspecified; Z68.30 Body mass index [BMI] 30.0-30.9, adult
CPT/HCPCS: 36415; 62270; 70450; 71010; 71020; 71250; 80048; 80053; 80069; 81001; 82248; 82436; 82945; 83605; 83735; 84100; 84133; 84157; 84300; 84443; 85007; 85027; 86481; 86592; 86644; 86645; 86738; 87040; 87071; 87075; 87102; 87116; 87205; 87327; 87385; 87529; 87641; 87804; 89051; 96361; 96365; 96375; J0289; J0290; J0696; J1170; J1450; J2060; J2270; J3370; J3475; J7030; J7040; J7060; Q0144; Q0163; 99285-25